=== PATIENT | male | born 1935 | race African-American/Black ===

== ENCOUNTER → 2017-05-07 | Outpatient (CLI) | payer MEDICARE, BC ==
[~2017-05-07] MED LIST: ACET-3161 PO; AMLO10TA80 PO; ATEN50TA PO; ATOR20TA65 PO; CHOL100044 PO; CYAN10009 PO; DAPA10TA PO; GLIM4TAB2 PO; LEVVL *; LOSA100T14 PO; METF10002 PO
== END | disposition home or self-care (01) ==
LOC: RAD 09:53
PROVIDERS: ATTEND Specialist
DX: J98.11 Atelectasis (principal)
CPT/HCPCS: 71020

== ENCOUNTER 2018-05-16 13:42 | Emergency (ER) | payer MEDICARE, BC ==
[~2018-05-16] VITALS: Ht 172.7 cm; Wt 138.0 kg
[~2018-05-16 13:42] MED LIST changes: +METF-416 PO; -METF10002 PO
[2018-05-16 14:43] VITALS: BP 121/67
== END 2018-05-16 14:44 | disposition home or self-care (01) ==
LOC: ER 13:42
DX: L03.211 Cellulitis of face (principal); E11.9 Type 2 diabetes mellitus without complications; I10 Essential (primary) hypertension; Z79.4 Long term (current) use of insulin
CPT/HCPCS: 99283

== ENCOUNTER 2018-10-12 08:31 | Inpatient (IN) | payer MEDICARE, BC ==
[~2018-10-12] VITALS: Ht 172.7 cm; Wt 125.6 kg
[2018-10-12] VITALS (19 sets, daily range): BP systolic 107–135; BP diastolic 49–89
[2018-10-12 09:27] LABS: BASOPHILS % 0.5 % (0.0-2.0); EOSINOPHILS % 1.2 % (0.0-5.0); HEMATOCRIT. 40.3 % (42.0-52.0); HEMOGLOBIN. 12.9 g/dL (14.0-18.0); LYMPHOCYTES % 43.4 % (20.0-50.0); MEAN CORPUSCULAR HEMOGLOBIN 29.5 pg (28.0-32.0); MEAN CORPUSCULAR VOLUME 92.2 fL (80.0-94.0); MEAN PLATELET VOLUME 7.5 fl (7.4-10.4); MONOCYTES % 10.7 % (2.0-8.0); NEUTROPHILS % 44.2 % (40.0-76.0); PLATELET 183 x1000/uL (130-400); RED BLOOD CELL COUNT 4.37 mill/uL (4.7-6.1); RED CELL DISTRIBUTION WIDTH 15.6 % (11.6-14.6)
[2018-10-12 09:31] LABS: CHLORIDE 103 mEq/L (98-107)
[2018-10-12 10:49] LABS: BG BASE EXCESS -1.9 mmol/L (-2.0-2.0); BG CARBOXYHEMOGLOBIN 0.3 % (0.5-1.5); BG DEOXYHEMOGLOBIN 9.9 % (0.0-5.0); BG FRACTION INSPIRED OXYGEN 100; BG HCO3 ACT 22.1 mmol/L (22.0-26.0); BG METHEMOGLOBIN 0.2 % (0.0-1.5); BG OXYGEN SATURATION 90.1 % (92.0-98.5); BG OXYHEMOGLOBIN 89.6 % (94.0-97.0); BG PCO2 35.2 mmHg (35.0-45.0); BG PH 7.415 (7.350-7.450); BG PO2 58.4 mmHg (75.0-100.0); BG SAMPLE SITE RIGHT RADIAL; BG TOTAL HEMOGLOBIN 13.4 g/dL (12.0-18.0); BG VENT MODE MASK - CPAP
[2018-10-12] MEDS ORDERED: ENOXAPARIN 120MG/0.8ML SYR SUBCUT ONE (14:00)
[2018-10-12] MEDS ORDERED: HEPARIN 25,000 UNITS PREMIX 500 ML IV SCH (14:15)
[2018-10-12] MEDS ORDERED: HEPARIN 5000 UNITS/ML VIAL IV SCH (14:15)
[2018-10-12] MEDS ORDERED: HEPARIN 5000 UNITS/ML VIAL IV ONE (14:15)
[2018-10-12] MEDS ORDERED: HEPARIN BOLUS PRN aPTT <36 IV (14:30)
[2018-10-12] MEDS ORDERED: HEPARIN BOLUS PRN aPTT 37-44 IV (14:30)
[2018-10-12 14:39] LABS: BASOPHILS % 1.1 % (0.0-2.0); EOSINOPHILS % 0.4 % (0.0-5.0); HEMATOCRIT. 39.5 % (42.0-52.0); HEMOGLOBIN. 12.8 g/dL (14.0-18.0); LYMPHOCYTES % 18.9 % (20.0-50.0); MEAN CORPUSCULAR HEMOGLOBIN 29.4 pg (28.0-32.0); MEAN PLATELET VOLUME 7.2 fl (7.4-10.4); MONOCYTES % 11.8 % (2.0-8.0); NEUTROPHILS % 67.8 % (40.0-76.0); PLATELET 169 x1000/uL (130-400); RED BLOOD CELL COUNT 4.34 mill/uL (4.7-6.1); RED CELL DISTRIBUTION WIDTH 15.6 % (11.6-14.6)
[2018-10-12 14:40] LABS: CHLORIDE 107 mEq/L (98-107)
[2018-10-12 14:49] LABS: CREATINE KINASE 120 IU/L (39-308)
[2018-10-12 14:50] LABS: INR 1.1; PARTIAL THROMBOPLASTIN TIME 24.7 sec (23.4-31.0); PROTHROMBIN TIME 11.1 sec (9.1-11.1)
[2018-10-12 14:52] LABS: CREATINE KINASE MB FRACTION 1.7 ng/mL (0.5-3.6)
[2018-10-12] MEDS: HEPARIN 25,000 UNITS PREMIX 500 ML IV SCH (15:39)
[2018-10-12] MEDS ORDERED: GUAIFENESIN 200MG/10ML SUGAR FREE UDC PO PRN (16:00)
[2018-10-12] MEDS ORDERED: ACETAMINOPHEN 325MG TABLET PO PRN (16:00)
[2018-10-12] MEDS ORDERED: ONDANSETRON HCL 4MG/2ML INJ IV PRN (16:00)
[2018-10-12] MEDS ORDERED: DOCUSATE SODIUM 100MG CAPSULE PO PRN (16:00)
[2018-10-12] MEDS ORDERED: CLONIDINE 0.1MG TABLET PO PRN (16:00)
[2018-10-12] MEDS ORDERED: MAGNESIUM/ALUMINUM HYDROXIDE/SIMETHICONE 30ML UDC PO PRN (16:00)
[2018-10-12] MEDS ORDERED: IPRATROPIUM/ALBUTEROL 0.5-3(2.5)MG/3ML NEB INH PRN (16:00)
[2018-10-12] MEDS ORDERED: MORPHINE SULFATE 4 MG/ML CPJ (NOT FOR IM USE) IV PRN (17:15)
[2018-10-12] MEDS ORDERED: IPRATROPIUM/ALBUTEROL 0.5-3(2.5)MG/3ML NEB HHN PRN (18:15)
[2018-10-12] MEDS: IPRATROPIUM/ALBUTEROL 0.5-3(2.5)MG/3ML NEB HHN SCH (20:59)
[2018-10-12] MEDS ORDERED: NA PHOS,M-B/NA PHOS,DI-BA ENEMA 118ML PR PRN (21:00)
[2018-10-12] MEDS ORDERED: DEXTROSE 50% WATER 50ML SYRINGE IV PRN (22:15)
[2018-10-12] MEDS: INSULIN LISPRO 100 UNITS/ML SUBCUT SCH (22:20)
[2018-10-12] MEDS: BLOOD SUGAR DIAGNOSTIC STRIP TEST SCH (22:20)
[2018-10-13] VITALS (64 sets, daily range): BP systolic 96–153; BP diastolic 55–79
[2018-10-13] MEDS: IPRATROPIUM/ALBUTEROL 0.5-3(2.5)MG/3ML NEB HHN SCH ×3 (02:11→20:34)
[2018-10-13 06:21] LABS: CHLORIDE 106 mEq/L (98-107)
[2018-10-13 06:23] LABS: BASOPHILS % 1.4 % (0.0-2.0); EOSINOPHILS % 1.2 % (0.0-5.0); HEMATOCRIT. 35.5 % (42.0-52.0); HEMOGLOBIN. 11.7 g/dL (14.0-18.0); LYMPHOCYTES % 26.2 % (20.0-50.0); MEAN CORPUSCULAR HEMOGLOBIN 29.7 pg (28.0-32.0); MEAN CORPUSCULAR VOLUME 90.2 fL (80.0-94.0); MEAN PLATELET VOLUME 7.7 fl (7.4-10.4); MONOCYTES % 13.3 % (2.0-8.0); NEUTROPHILS % 57.9 % (40.0-76.0); PLATELET 151 x1000/uL (130-400); RED BLOOD CELL COUNT 3.93 mill/uL (4.7-6.1); RED CELL DISTRIBUTION WIDTH 15.1 % (11.6-14.6)
[2018-10-13 06:31] LABS: CREATINE KINASE 99 IU/L (39-308); CREATINE KINASE MB FRACTION 1.5 ng/mL (0.5-3.6)
[2018-10-13 06:32] LABS: LDL CHOLESTEROL 71 mg/dL (5-100)
[2018-10-13 06:34] LABS: HDL CHOLESTEROL 52 mg/dL (40-59)
[2018-10-13] MEDS: INSULIN LISPRO 100 UNITS/ML SUBCUT SCH ×4 (06:58→21:57)
[2018-10-13] MEDS: BLOOD SUGAR DIAGNOSTIC STRIP TEST SCH ×4 (06:59→21:00)
[2018-10-13 08:20] LABS: BG CARBOXYHEMOGLOBIN 0.6 % (0.5-1.5); BG HCO3 ACT 23.4 mmol/L (22.0-26.0); BG METHEMOGLOBIN 0.4 % (0.0-1.5); BG OXYGEN SATURATION 94.9 % (92.0-98.5); BG PH 7.407 (7.350-7.450); BG PO2 75.8 mmHg (75.0-100.0); BG SAMPLE SITE RIGHT RADIAL; BG TOTAL HEMOGLOBIN 12.6 g/dL (12.0-18.0); BG VENT MODE MASK - NRB
[2018-10-13] MEDS: HEPARIN 25,000 UNITS PREMIX 500 ML IV SCH (08:57)
[2018-10-13] MEDS ORDERED: LIDOCAINE HCL/PF 1% 2ML VIAL ONE (14:17)
[2018-10-14] VITALS (25 sets, daily range): BP systolic 105–132; BP diastolic 50–83
[2018-10-14] MEDS: IPRATROPIUM/ALBUTEROL 0.5-3(2.5)MG/3ML NEB HHN SCH ×4 (01:19→20:40)
[2018-10-14] MEDS: HEPARIN 25,000 UNITS PREMIX 500 ML IV SCH (02:24)
[2018-10-14 07:00] LABS: BASOPHILS % 0.5 % (0.0-2.0); HEMATOCRIT. 36.7 % (42.0-52.0); HEMOGLOBIN. 11.9 g/dL (14.0-18.0); LYMPHOCYTES % 20.2 % (20.0-50.0); MEAN CORPUSCULAR HEMOGLOBIN 29.6 pg (28.0-32.0); MEAN CORPUSCULAR VOLUME 91.1 fL (80.0-94.0); MEAN PLATELET VOLUME 8.2 fl (7.4-10.4); MONOCYTES % 12.6 % (2.0-8.0); NEUTROPHILS % 65.7 % (40.0-76.0); PLATELET 162 x1000/uL (130-400); RED BLOOD CELL COUNT 4.03 mill/uL (4.7-6.1); RED CELL DISTRIBUTION WIDTH 15.1 % (11.6-14.6)
[2018-10-14] MEDS: BLOOD SUGAR DIAGNOSTIC STRIP TEST SCH ×4 (07:00→20:57)
[2018-10-14] MEDS: INSULIN LISPRO 100 UNITS/ML SUBCUT SCH ×4 (07:30→21:22)
[2018-10-14 08:15] LABS: BG BASE EXCESS 0.6 mmol/L (-2.0-2.0); BG CARBOXYHEMOGLOBIN 0.5 % (0.5-1.5); BG DEOXYHEMOGLOBIN 6.8 % (0.0-5.0); BG FRACTION INSPIRED OXYGEN 80; BG METHEMOGLOBIN 0.3 % (0.0-1.5); BG OXYGEN SATURATION 93.1 % (92.0-98.5); BG OXYHEMOGLOBIN 92.4 % (94.0-97.0); BG PCO2 39.3 mmHg (35.0-45.0); BG PH 7.421 (7.350-7.450); BG PO2 70.7 mmHg (75.0-100.0); BG SAMPLE SITE RIGHT RADIAL; BG TOTAL HEMOGLOBIN 14.1 g/dL (12.0-18.0); BG VENT MODE VAPOTHERM
[2018-10-14] MEDS ORDERED: LIDOCAINE HCL 1% 20ML VIAL (Pyxis) INJ ONE (10:24)
[2018-10-14] MEDS: RIVAROXABAN 15 MG TABLET PO SCH (20:57)
[2018-10-15] VITALS (12 sets, daily range): BP systolic 114–155; BP diastolic 51–100
[2018-10-15] MEDS: IPRATROPIUM/ALBUTEROL 0.5-3(2.5)MG/3ML NEB HHN SCH ×4 (01:41→20:30)
[2018-10-15 06:40] LABS: BASOPHILS % 0.6 % (0.0-2.0); HEMATOCRIT. 35.6 % (42.0-52.0); HEMOGLOBIN. 11.5 g/dL (14.0-18.0); LYMPHOCYTES % 19.2 % (20.0-50.0); MEAN CORPUSCULAR HEMOGLOBIN 29.6 pg (28.0-32.0); MEAN CORPUSCULAR VOLUME 91.6 fL (80.0-94.0); MEAN PLATELET VOLUME 8.2 fl (7.4-10.4); MONOCYTES % 13.6 % (2.0-8.0); NEUTROPHILS % 65.6 % (40.0-76.0); PLATELET 164 x1000/uL (130-400); RED BLOOD CELL COUNT 3.88 mill/uL (4.7-6.1); RED CELL DISTRIBUTION WIDTH 15.4 % (11.6-14.6)
[2018-10-15 08:09] LABS: BG BASE EXCESS 1.5 mmol/L (-2.0-2.0); BG CARBOXYHEMOGLOBIN 0.3 % (0.5-1.5); BG DEOXYHEMOGLOBIN 6.4 % (0.0-5.0); BG METHEMOGLOBIN 0.1 % (0.0-1.5); BG OXYGEN SATURATION 93.6 % (92.0-98.5); BG OXYHEMOGLOBIN 93.2 % (94.0-97.0); BG PCO2 40.8 mmHg (35.0-45.0); BG PH 7.423 (7.350-7.450); BG PO2 69.6 mmHg (75.0-100.0); BG SAMPLE SITE RIGHT RADIAL; BG TOTAL HEMOGLOBIN 11.6 g/dL (12.0-18.0); BG VENT MODE VAPOTHERM
[2018-10-15 08:13] LABS: CHLORIDE 105 mEq/L (98-107)
[2018-10-15] MEDS: RIVAROXABAN 15 MG TABLET PO SCH ×2 (09:53→18:26)
[2018-10-15] MEDS: BLOOD SUGAR DIAGNOSTIC STRIP TEST SCH ×2 (12:30→17:30)
[2018-10-15] MEDS: INSULIN LISPRO 100 UNITS/ML SUBCUT SCH ×2 (13:19→18:22)
[2018-10-15] MEDS ORDERED: LIDOCAINE HCL/PF 1% 2ML VIAL ONE (14:08)
[2018-10-16] VITALS (12 sets, daily range): BP systolic 122–144; BP diastolic 62–84
[2018-10-16] MEDS: IPRATROPIUM/ALBUTEROL 0.5-3(2.5)MG/3ML NEB HHN SCH ×4 (00:48→19:59)
[2018-10-16] MEDS: BLOOD SUGAR DIAGNOSTIC STRIP TEST SCH ×4 (07:40→21:00)
[2018-10-16] MEDS: RIVAROXABAN 15 MG TABLET PO SCH ×2 (08:17→18:23)
[2018-10-16] MEDS: INSULIN LISPRO 100 UNITS/ML SUBCUT SCH ×4 (08:18→22:35)
[2018-10-17] VITALS (12 sets, daily range): BP systolic 130–166; BP diastolic 62–90
[2018-10-17] MEDS: IPRATROPIUM/ALBUTEROL 0.5-3(2.5)MG/3ML NEB HHN SCH ×4 (02:13→20:46)
[2018-10-17] MEDS: BLOOD SUGAR DIAGNOSTIC STRIP TEST SCH ×4 (07:30→20:35)
[2018-10-17] MEDS: RIVAROXABAN 15 MG TABLET PO SCH ×2 (08:44→17:55)
[2018-10-17] MEDS: INSULIN LISPRO 100 UNITS/ML SUBCUT SCH ×4 (08:46→20:43)
[2018-10-17 14:27] LABS: BG BASE EXCESS -0.7 mmol/L (-2.0-2.0); BG CARBOXYHEMOGLOBIN 0.1 % (0.5-1.5); BG DEOXYHEMOGLOBIN 5.5 % (0.0-5.0); BG FRACTION INSPIRED OXYGEN 50; BG METHEMOGLOBIN 0.2 % (0.0-1.5); BG OXYGEN SATURATION 94.5 % (92.0-98.5); BG OXYHEMOGLOBIN 94.2 % (94.0-97.0); BG PCO2 39.9 mmHg (35.0-45.0); BG PH 7.398 (7.350-7.450); BG PO2 74.5 mmHg (75.0-100.0); BG SAMPLE SITE RIGHT BRACHIAL; BG TOTAL HEMOGLOBIN 12.8 g/dL (12.0-18.0); BG VENT MODE VAPOTHERM
[2018-10-18] VITALS (12 sets, daily range): BP systolic 134–166; BP diastolic 66–92
[2018-10-18] MEDS: IPRATROPIUM/ALBUTEROL 0.5-3(2.5)MG/3ML NEB HHN SCH ×4 (02:13→21:26)
[2018-10-18 07:01] LABS: BASOPHILS % 0.4 % (0.0-2.0); EOSINOPHILS % 1.6 % (0.0-5.0); HEMATOCRIT. 35.8 % (42.0-52.0); HEMOGLOBIN. 11.6 g/dL (14.0-18.0); MEAN CORPUSCULAR HEMOGLOBIN 29.7 pg (28.0-32.0); MEAN CORPUSCULAR VOLUME 91.8 fL (80.0-94.0); MEAN PLATELET VOLUME 7.9 fl (7.4-10.4); MONOCYTES % 12.5 % (2.0-8.0); NEUTROPHILS % 60.5 % (40.0-76.0); PLATELET 231 x1000/uL (130-400); RED CELL DISTRIBUTION WIDTH 14.9 % (11.6-14.6)
[2018-10-18 07:19] LABS: CHLORIDE 104 mEq/L (98-107)
[2018-10-18] MEDS: BLOOD SUGAR DIAGNOSTIC STRIP TEST SCH ×4 (08:01→20:31)
[2018-10-18] MEDS: RIVAROXABAN 15 MG TABLET PO SCH ×2 (09:03→18:13)
[2018-10-18] MEDS: INSULIN LISPRO 100 UNITS/ML SUBCUT SCH ×4 (09:04→20:33)
[2018-10-18 09:53] LABS: BG BASE EXCESS -0.3 mmol/L (-2.0-2.0); BG CARBOXYHEMOGLOBIN 0.1 % (0.5-1.5); BG DEOXYHEMOGLOBIN 4.7 % (0.0-5.0); BG HCO3 ACT 24.5 mmol/L (22.0-26.0); BG METHEMOGLOBIN 0.3 % (0.0-1.5); BG OXYGEN SATURATION 95.3 % (92.0-98.5); BG OXYHEMOGLOBIN 94.9 % (94.0-97.0); BG PCO2 40.8 mmHg (35.0-45.0); BG PH 7.396 (7.350-7.450); BG PO2 80.1 mmHg (75.0-100.0); BG SAMPLE SITE RIGHT RADIAL; BG TOTAL HEMOGLOBIN 12.4 g/dL (12.0-18.0); BG VENT MODE MASK - VENTI
[2018-10-18] MEDS ORDERED: LIDOCAINE HCL/PF 1% 2ML VIAL ONE (15:32)
[2018-10-19] VITALS (9 sets, daily range): BP systolic 127–154; BP diastolic 66–77
[2018-10-19] MEDS: BLOOD SUGAR DIAGNOSTIC STRIP TEST SCH ×2 (06:41→11:42)
[2018-10-19 07:18] LABS: BASOPHILS % 0.8 % (0.0-2.0); EOSINOPHILS % 1.4 % (0.0-5.0); HEMATOCRIT. 35.5 % (42.0-52.0); HEMOGLOBIN. 11.8 g/dL (14.0-18.0); LYMPHOCYTES % 26.1 % (20.0-50.0); MEAN CORPUSCULAR HEMOGLOBIN 30.3 pg (28.0-32.0); MEAN CORPUSCULAR VOLUME 91.3 fL (80.0-94.0); MEAN PLATELET VOLUME 7.9 fl (7.4-10.4); MONOCYTES % 12.7 % (2.0-8.0); PLATELET 248 x1000/uL (130-400); RED BLOOD CELL COUNT 3.89 mill/uL (4.7-6.1); RED CELL DISTRIBUTION WIDTH 14.8 % (11.6-14.6)
[2018-10-19 07:28] LABS: CHLORIDE 105 mEq/L (98-107)
[2018-10-19] MEDS: IPRATROPIUM/ALBUTEROL 0.5-3(2.5)MG/3ML NEB HHN SCH ×2 (09:12→16:03)
[2018-10-19] MEDS: RIVAROXABAN 15 MG TABLET PO SCH ×2 (10:04→17:29)
[2018-10-19] MEDS: INSULIN LISPRO 100 UNITS/ML SUBCUT SCH (12:13)
[2018-11-05] MEDS ORDERED: RIVAROXABAN 20 MG TABLET PO SCH (17:00)
== END 2018-10-19 17:35 | DRG 175 ==
LOC: ER 08:31 → MICUSO 14:15 → SUPCPDRO 15:42 → ENRESERV 17:47 → 5EST 10-14 10:45
PROVIDERS: ADMIT Specialist; ATTEND Specialist
PROC: 5A09357 Assistance with Respiratory Ventilation, Less than 24 Consecutive Hours, Continuous Positive Airway Pressure (ICD-10-PCS; principal; 2018-10-17)
PROC: 5A09357 Assistance with Respiratory Ventilation, Less than 24 Consecutive Hours, Continuous Positive Airway Pressure (ICD-10-PCS; 2018-10-19)
DX: I26.99 Other pulmonary embolism without acute cor pulmonale (principal); J96.01 Acute respiratory failure with hypoxia; D68.59 Other primary thrombophilia; N17.9 Acute kidney failure, unspecified; I13.0 Hypertensive heart and chronic kidney disease with heart failure and stage 1 through stage 4 chronic kidney disease, or unspecified chronic kidney disease; G82.20 Paraplegia, unspecified; J93.9 Pneumothorax, unspecified; Z68.41 Body mass index [BMI] 40.0-44.9, adult; N18.9 Chronic kidney disease, unspecified; I48.0 Paroxysmal atrial fibrillation; J44.9 Chronic obstructive pulmonary disease, unspecified; I27.20 Pulmonary hypertension, unspecified; Z79.84 Long term (current) use of oral hypoglycemic drugs; R74.0 Nonspecific elevation of levels of transaminase and lactic acid dehydrogenase [LDH]; R26.9 Unspecified abnormalities of gait and mobility; G47.33 Obstructive sleep apnea (adult) (pediatric); I25.10 Atherosclerotic heart disease of native coronary artery without angina pectoris; I50.9 Heart failure, unspecified; D64.9 Anemia, unspecified; E11.22 Type 2 diabetes mellitus with diabetic chronic kidney disease; E66.01 Morbid (severe) obesity due to excess calories; E78.00 Pure hypercholesterolemia, unspecified; E78.5 Hyperlipidemia, unspecified; M48.061 Spinal stenosis, lumbar region without neurogenic claudication; M51.36 Other intervertebral disc degeneration, lumbar region; Z79.01 Long term (current) use of anticoagulants; Z79.82 Long term (current) use of aspirin; Z79.890 Hormone replacement therapy; Z86.718 Personal history of other venous thrombosis and embolism; Z95.0 Presence of cardiac pacemaker
CPT/HCPCS: 36415; 36600; 71045; 71250; 78582; 80048; 80061; 82375; 82550; 82553; 82805; 82962; 83735; 83880; 84443; 84484; 85379; 93005; 93306; 93970; 94640; 97116; 97162; 99291; A6261; A9558; J1644; J1815; J3490; J7040; J7620

== ENCOUNTER 2018-10-19 17:45 | Inpatient (IN) | payer MEDICARE, BC ==
[~2018-10-19] VITALS: Ht 172.7 cm; Wt 122.5 kg
[2018-10-19] MEDS ORDERED: ACETAMINOPHEN 325MG TABLET PO PRN (19:30)
[2018-10-19] MEDS ORDERED: MAGNESIUM/ALUMINUM HYDROXIDE/SIMETHICONE 30ML UDC PO PRN (19:30)
[2018-10-19] MEDS ORDERED: GUAIFENESIN 200MG/10ML SUGAR FREE UDC PO PRN (19:30)
[2018-10-19] MEDS ORDERED: CLONIDINE 0.1MG TABLET PO PRN (19:30)
[2018-10-19] MEDS ORDERED: IPRATROPIUM/ALBUTEROL 0.5-3(2.5)MG/3ML NEB HHN PRN (19:30)
[2018-10-19] MEDS ORDERED: DOCUSATE SODIUM 100MG CAPSULE PO PRN (19:30)
[2018-10-19] MEDS ORDERED: DEXTROSE 50% WATER 50ML SYRINGE IV PRN (19:45)
[2018-10-19 19:50] VITALS: BP 125/67
[2018-10-19 20:00] VITALS: BP 125/67
[2018-10-19] MEDS: BLOOD SUGAR DIAGNOSTIC STRIP TEST SCH (21:50)
[2018-10-19] MEDS: INSULIN LISPRO 100 UNITS/ML SUBCUT SCH (21:58)
[2018-10-20] MEDS: IPRATROPIUM/ALBUTEROL 0.5-3(2.5)MG/3ML NEB HHN SCH ×4 (02:49→21:15)
[2018-10-20 05:56] LABS: CHLORIDE 105 mEq/L (98-107)
[2018-10-20 06:09] LABS: BASOPHILS % 0.5 % (0.0-2.0); EOSINOPHILS % 1.5 % (0.0-5.0); HEMATOCRIT. 34.3 % (42.0-52.0); HEMOGLOBIN. 11.2 g/dL (14.0-18.0); LYMPHOCYTES % 26.5 % (20.0-50.0); MEAN CORPUSCULAR HEMOGLOBIN 29.9 pg (28.0-32.0); MEAN CORPUSCULAR VOLUME 91.7 fL (80.0-94.0); MEAN PLATELET VOLUME 7.7 fl (7.4-10.4); MONOCYTES % 12.2 % (2.0-8.0); NEUTROPHILS % 59.3 % (40.0-76.0); PLATELET 269 x1000/uL (130-400); RED BLOOD CELL COUNT 3.75 mill/uL (4.7-6.1); RED CELL DISTRIBUTION WIDTH 14.7 % (11.6-14.6)
[2018-10-20] MEDS: BLOOD SUGAR DIAGNOSTIC STRIP TEST SCH ×4 (06:31→21:50)
[2018-10-20 08:07] VITALS: BP 141/79
[2018-10-20] MEDS: RIVAROXABAN 15 MG TABLET PO SCH ×2 (08:39→16:20)
[2018-10-20] MEDS: INSULIN LISPRO 100 UNITS/ML SUBCUT SCH ×4 (08:42→22:03)
[2018-10-20] MEDS ORDERED: BISACODYL 5MG TABLET PO PRN (11:30)
[2018-10-20] MEDS: DOCUSATE SODIUM 100MG CAPSULE PO SCH (12:29)
[2018-10-20 20:00] VITALS: BP 150/78
[2018-10-21] MEDS: IPRATROPIUM/ALBUTEROL 0.5-3(2.5)MG/3ML NEB HHN SCH ×2 (02:03→19:54)
[2018-10-21] MEDS: BLOOD SUGAR DIAGNOSTIC STRIP TEST SCH ×4 (06:19→21:57)
[2018-10-21] MEDS: INSULIN LISPRO 100 UNITS/ML SUBCUT SCH ×4 (06:29→22:02)
[2018-10-21 08:08] VITALS: BP 158/71
[2018-10-21] MEDS: RIVAROXABAN 15 MG TABLET PO SCH ×2 (09:12→17:01)
[2018-10-21] MEDS: DOCUSATE SODIUM 100MG CAPSULE PO SCH (09:12)
[2018-10-21] MEDS: ONDANSETRON HCL 4MG TABLET PO PRN (12:28)
[2018-10-21 20:00] VITALS: BP 137/74
[2018-10-22] MEDS: IPRATROPIUM/ALBUTEROL 0.5-3(2.5)MG/3ML NEB HHN SCH ×4 (00:37→21:02)
[2018-10-22 05:50] LABS: BASOPHILS % 0.6 % (0.0-2.0); EOSINOPHILS % 2.1 % (0.0-5.0); HEMATOCRIT. 33.7 % (42.0-52.0); HEMOGLOBIN. 11.1 g/dL (14.0-18.0); LYMPHOCYTES % 29.9 % (20.0-50.0); MEAN CORPUSCULAR HEMOGLOBIN 30.1 pg (28.0-32.0); MEAN CORPUSCULAR VOLUME 91.2 fL (80.0-94.0); MEAN PLATELET VOLUME 7.6 fl (7.4-10.4); MONOCYTES % 12.2 % (2.0-8.0); NEUTROPHILS % 55.2 % (40.0-76.0); PLATELET 291 x1000/uL (130-400); RED BLOOD CELL COUNT 3.69 mill/uL (4.7-6.1); RED CELL DISTRIBUTION WIDTH 15.1 % (11.6-14.6)
[2018-10-22] MEDS: BLOOD SUGAR DIAGNOSTIC STRIP TEST SCH ×4 (06:43→21:00)
[2018-10-22] MEDS: INSULIN LISPRO 100 UNITS/ML SUBCUT SCH ×2 (06:51→18:25)
[2018-10-22 06:56] LABS: CHLORIDE 106 mEq/L (98-107)
[2018-10-22 07:05] LABS: LDL CHOLESTEROL 111 mg/dL (5-100); PHOSPHORUS 2.8 mg/dL (2.5-4.9)
[2018-10-22 07:07] LABS: HDL CHOLESTEROL 45 mg/dL (40-59)
[2018-10-22 07:09] LABS: TOTAL IRON BINDING CAPACITY 248 ug/dL (250-450)
[2018-10-22 08:00] VITALS: BP 114/64
[2018-10-22 10:17] LABS: FERRITIN 374 ng/mL (22-322); PROSTRATE SPECIFIC AG TOTAL 0.24 ng/mL (0.0-4.0)
[2018-10-22] MEDS: RIVAROXABAN 15 MG TABLET PO SCH ×2 (10:46→18:23)
[2018-10-22] MEDS: DOCUSATE SODIUM 100MG CAPSULE PO SCH (10:47)
[2018-10-22 11:33] LABS: VITAMIN B12 SERUM > 2000.0 pg/mL (211-911)
[2018-10-22] MEDS: LEVOTHYROXINE SODIUM 25MCG TABLET PO SCH (13:57)
[2018-10-22] MEDS ORDERED: INSULIN LISPRO 100 UNITS/ML SUBCUT SCH (17:00)
[2018-10-22] MEDS: INSULIN LISPRO (LOW DOSE) 100 UNITS/ML SUBCUT SCH (18:24)
[2018-10-22 20:00] VITALS: BP 119/58
[2018-10-22] MEDS: INSULIN GLARGINE UD 100 UNITS/ML SYR SUBCUT SCH (23:13)
[2018-10-23] MEDS: IPRATROPIUM/ALBUTEROL 0.5-3(2.5)MG/3ML NEB HHN SCH ×4 (02:02→21:52)
[2018-10-23] MEDS: LEVOTHYROXINE SODIUM 25MCG TABLET PO SCH (06:37)
[2018-10-23] MEDS: BLOOD SUGAR DIAGNOSTIC STRIP TEST SCH ×4 (06:48→21:31)
[2018-10-23] MEDS: INSULIN LISPRO 100 UNITS/ML SUBCUT SCH ×3 (06:48→17:28)
[2018-10-23] MEDS: INSULIN LISPRO (LOW DOSE) 100 UNITS/ML SUBCUT SCH ×3 (06:48→17:28)
[2018-10-23 08:00] VITALS: BP 117/61
[2018-10-23] MEDS: DOCUSATE SODIUM 100MG CAPSULE PO SCH (08:42)
[2018-10-23] MEDS: RIVAROXABAN 15 MG TABLET PO SCH ×2 (08:42→17:17)
[2018-10-23 09:11] LABS: T4 FREE 1.21 ng/dL (0.76-1.46)
[2018-10-23 11:40] LABS: HEPATITIS B SURFACE ANTIGEN NEGATIVE
[2018-10-23 12:10] LABS: HEPATITIS A AB IGM NEGATIVE (NEGATIVE)
[2018-10-23] MEDS ORDERED: LACTULOSE 20G/30ML UDC PO NR (14:30)
[2018-10-23 21:00] VITALS: BP 133/75
[2018-10-23] MEDS: INSULIN GLARGINE UD 100 UNITS/ML SYR SUBCUT SCH (21:51)
[2018-10-24] MEDS: IPRATROPIUM/ALBUTEROL 0.5-3(2.5)MG/3ML NEB HHN SCH ×4 (01:48→21:20)
[2018-10-24] MEDS: BLOOD SUGAR DIAGNOSTIC STRIP TEST SCH ×4 (06:04→21:39)
[2018-10-24] MEDS: LEVOTHYROXINE SODIUM 25MCG TABLET PO SCH (06:04)
[2018-10-24 06:45] LABS: BASOPHILS % 0.6 % (0.0-2.0); EOSINOPHILS % 1.9 % (0.0-5.0); HEMATOCRIT. 33.9 % (42.0-52.0); HEMOGLOBIN. 11.3 g/dL (14.0-18.0); LYMPHOCYTES % 32.9 % (20.0-50.0); MEAN CORPUSCULAR HEMOGLOBIN 30.2 pg (28.0-32.0); MEAN CORPUSCULAR VOLUME 90.9 fL (80.0-94.0); MEAN PLATELET VOLUME 7.5 fl (7.4-10.4); MONOCYTES % 12.7 % (2.0-8.0); NEUTROPHILS % 51.9 % (40.0-76.0); PLATELET 316 x1000/uL (130-400); RED BLOOD CELL COUNT 3.73 mill/uL (4.7-6.1)
[2018-10-24 06:57] LABS: CHLORIDE 105 mEq/L (98-107)
[2018-10-24] MEDS: INSULIN LISPRO 100 UNITS/ML SUBCUT SCH ×3 (07:00→16:50)
[2018-10-24 08:00] VITALS: BP 128/62
[2018-10-24] MEDS: DOCUSATE SODIUM 100MG CAPSULE PO SCH (08:56)
[2018-10-24] MEDS: RIVAROXABAN 15 MG TABLET PO SCH ×2 (08:56→16:07)
[2018-10-24] MEDS: INSULIN LISPRO (LOW DOSE) 100 UNITS/ML SUBCUT SCH ×3 (09:08→16:51)
[2018-10-24] MEDS: ONDANSETRON HCL 4MG TABLET PO PRN (14:29)
[2018-10-24 20:00] VITALS: BP 132/74
[2018-10-24] MEDS: INSULIN GLARGINE UD 100 UNITS/ML SYR SUBCUT SCH (22:03)
[2018-10-25] MEDS: IPRATROPIUM/ALBUTEROL 0.5-3(2.5)MG/3ML NEB HHN SCH ×4 (00:57→20:50)
[2018-10-25] MEDS: LEVOTHYROXINE SODIUM 25MCG TABLET PO SCH (06:13)
[2018-10-25] MEDS: BLOOD SUGAR DIAGNOSTIC STRIP TEST SCH ×4 (06:14→21:00)
[2018-10-25] MEDS: INSULIN LISPRO 100 UNITS/ML SUBCUT SCH ×3 (07:52→16:40)
[2018-10-25] MEDS: INSULIN LISPRO (LOW DOSE) 100 UNITS/ML SUBCUT SCH ×3 (07:53→16:40)
[2018-10-25 07:55] VITALS: BP 111/55
[2018-10-25] MEDS: RIVAROXABAN 15 MG TABLET PO SCH ×2 (08:52→16:38)
[2018-10-25] MEDS: BISACODYL 5MG TABLET PO PRN ×2 (08:52→16:38)
[2018-10-25] MEDS: DOCUSATE SODIUM 100MG CAPSULE PO SCH (08:52)
[2018-10-25] MEDS ORDERED: LACTULOSE 20G/30ML UDC PO PRN (12:45)
[2018-10-25] MEDS ORDERED: NA PHOS,M-B/NA PHOS,DI-BA ENEMA 118ML PR SCH (12:45)
[2018-10-25 20:00] VITALS: BP 128/65
[2018-10-25] MEDS: INSULIN GLARGINE UD 100 UNITS/ML SYR SUBCUT SCH (22:42)
[2018-10-26] MEDS: IPRATROPIUM/ALBUTEROL 0.5-3(2.5)MG/3ML NEB HHN SCH ×4 (02:20→20:51)
[2018-10-26] MEDS: LEVOTHYROXINE SODIUM 25MCG TABLET PO SCH (06:08)
[2018-10-26] MEDS: BLOOD SUGAR DIAGNOSTIC STRIP TEST SCH ×4 (06:08→21:00)
[2018-10-26 06:34] LABS: CHLORIDE 105 mEq/L (98-107)
[2018-10-26 06:51] LABS: HEMATOCRIT. 34.8 % (42.0-52.0); HEMOGLOBIN. 11.2 g/dL (14.0-18.0); LYMPHOCYTES % 34.9 % (20.0-50.0); MEAN CORPUSCULAR HEMOGLOBIN 29.6 pg (28.0-32.0); MEAN CORPUSCULAR VOLUME 91.5 fL (80.0-94.0); MEAN PLATELET VOLUME 7.6 fl (7.4-10.4); MONOCYTES % 11.2 % (2.0-8.0); NEUTROPHILS % 50.9 % (40.0-76.0); PLATELET 310 x1000/uL (130-400); RED CELL DISTRIBUTION WIDTH 15.3 % (11.6-14.6)
[2018-10-26 08:10] VITALS: BP 140/78
[2018-10-26] MEDS: DOCUSATE SODIUM 100MG CAPSULE PO SCH (08:48)
[2018-10-26] MEDS: RIVAROXABAN 15 MG TABLET PO SCH ×2 (08:48→17:50)
[2018-10-26] MEDS: INSULIN LISPRO 100 UNITS/ML SUBCUT SCH ×3 (09:01→17:57)
[2018-10-26] MEDS: INSULIN LISPRO (LOW DOSE) 100 UNITS/ML SUBCUT SCH ×3 (09:01→17:57)
[2018-10-26 20:00] VITALS: BP 138/73
[2018-10-26] MEDS: INSULIN GLARGINE UD 100 UNITS/ML SYR SUBCUT SCH (22:15)
[2018-10-27] MEDS: IPRATROPIUM/ALBUTEROL 0.5-3(2.5)MG/3ML NEB HHN SCH ×2 (02:41→09:18)
[2018-10-27] MEDS: BLOOD SUGAR DIAGNOSTIC STRIP TEST SCH ×2 (06:59→11:15)
[2018-10-27] MEDS: LEVOTHYROXINE SODIUM 25MCG TABLET PO SCH (07:11)
[2018-10-27] MEDS: INSULIN LISPRO 100 UNITS/ML SUBCUT SCH ×2 (07:16→13:28)
[2018-10-27 08:05] VITALS: BP 141/73
[2018-10-27] MEDS: DOCUSATE SODIUM 100MG CAPSULE PO SCH (08:31)
[2018-10-27] MEDS: RIVAROXABAN 15 MG TABLET PO SCH (08:31)
[2018-10-27] MEDS: INSULIN LISPRO (LOW DOSE) 100 UNITS/ML SUBCUT SCH ×2 (08:37→13:28)
[2018-10-27 09:27] VITALS: BP 138/69
[2018-10-28 17:06] LABS: 25-HYDROXY VITAMIN D3 40 ng/mL (.)
[2018-11-05] MEDS ORDERED: RIVAROXABAN 20 MG TABLET PO SCH (17:00)
== END 2018-10-27 14:28 | disposition home health service (06) | DRG 175 ==
PROVIDERS: ADMIT Physical Medicine & Rehabilitation Spinal Cord Injury Medicine; ATTEND Specialist
PROC: 5A09357 Assistance with Respiratory Ventilation, Less than 24 Consecutive Hours, Continuous Positive Airway Pressure (ICD-10-PCS; principal; 2018-10-21)
PROC: 5A09357 Assistance with Respiratory Ventilation, Less than 24 Consecutive Hours, Continuous Positive Airway Pressure (ICD-10-PCS; 2018-10-26)
DX: I26.99 Other pulmonary embolism without acute cor pulmonale (principal); J96.00 Acute respiratory failure, unspecified whether with hypoxia or hypercapnia; G82.20 Paraplegia, unspecified; N17.9 Acute kidney failure, unspecified; J93.9 Pneumothorax, unspecified; J90 Pleural effusion, not elsewhere classified; D68.59 Other primary thrombophilia; Z68.41 Body mass index [BMI] 40.0-44.9, adult; M48.061 Spinal stenosis, lumbar region without neurogenic claudication; R53.81 Other malaise; G89.29 Other chronic pain; R20.0 Anesthesia of skin; R74.8 Abnormal levels of other serum enzymes; N18.9 Chronic kidney disease, unspecified; E11.22 Type 2 diabetes mellitus with diabetic chronic kidney disease; I12.9 Hypertensive chronic kidney disease with stage 1 through stage 4 chronic kidney disease, or unspecified chronic kidney disease; I48.0 Paroxysmal atrial fibrillation; I27.20 Pulmonary hypertension, unspecified; R16.0 Hepatomegaly, not elsewhere classified; R26.9 Unspecified abnormalities of gait and mobility; D64.9 Anemia, unspecified; E66.01 Morbid (severe) obesity due to excess calories; I25.10 Atherosclerotic heart disease of native coronary artery without angina pectoris; G47.33 Obstructive sleep apnea (adult) (pediatric); E03.9 Hypothyroidism, unspecified; E78.00 Pure hypercholesterolemia, unspecified; J44.9 Chronic obstructive pulmonary disease, unspecified; K59.00 Constipation, unspecified; E78.5 Hyperlipidemia, unspecified; F06.31 Mood disorder due to known physiological condition with depressive features; R53.1 Weakness; M51.86 Other intervertebral disc disorders, lumbar region; R74.0 Nonspecific elevation of levels of transaminase and lactic acid dehydrogenase [LDH]; Z86.718 Personal history of other venous thrombosis and embolism; Z95.0 Presence of cardiac pacemaker; Z79.899 Other long term (current) drug therapy; Z79.01 Long term (current) use of anticoagulants; Z82.49 Family history of ischemic heart disease and other diseases of the circulatory system; Z87.891 Personal history of nicotine dependence; Z79.84 Long term (current) use of oral hypoglycemic drugs; Z98.42 Cataract extraction status, left eye; Q63.2 Ectopic kidney
CPT/HCPCS: 36415; 76700; 80061; 82306; 82607; 82728; 82746; 82962; 83036; 83540; 83550; 83735; 84100; 84134; 84153; 84439; 84443; 84481; 86705; 86709; 86803; 87340; 92508; 92523; 93970; 94618; 94640; 94660; 97110; 97116; 97150; 97162; 97166; 97530; 97535; G0515; J1815; J7620; Q0162; G0103

== ENCOUNTER 2020-01-28 09:48 | Emergency (ER) | payer MEDICARE, BC ==
[~2020-01-28] VITALS: Ht 167.6 cm; Wt 135.0 kg
[~2020-01-28 09:48] MED LIST changes: +CYAN-50 PO; -CYAN10009 PO; -GLIM4TAB2 PO; +GLIM4TAB36 PO; -LEVVL *; -LOSA100T14 PO; +LOSA100T32 PO
[2020-01-28] MEDS ORDERED: ACETAMINOPHEN 325MG TABLET PO STA (11:12)
[2020-01-28 12:34] LABS: CLARITY URINE CLEAR (CLEAR); COLOR URINE DARK YELLOW (YELLOW); KETONES URINE TRACE (NEGATIVE); LEUKOCYTE ESTERASE URINE 1+ (NEGATIVE); NITRITE URINE NEGATIVE (NEGATIVE); OCCULT BLOOD URINE NEGATIVE (NEGATIVE); PH URINE 5.5 (4.5-8.0); PROTEIN URINE TRACE (NEGATIVE); SPECIFIC GRAVITY URINE 1.026 (1.005-1.030)
[2020-01-28 13:00] VITALS: BP 158/86
== END 2020-01-28 13:25 | disposition home or self-care (01) ==
LOC: ER 09:48
DX: S20.211A Contusion of right front wall of thorax, initial encounter (principal); W01.0XXA Fall on same level from slipping, tripping and stumbling without subsequent striking against object, initial encounter; Y93.89 Activity, other specified; Y92.89 Other specified places as the place of occurrence of the external cause; Y99.8 Other external cause status; N39.0 Urinary tract infection, site not specified; I11.0 Hypertensive heart disease with heart failure; I50.9 Heart failure, unspecified; E11.9 Type 2 diabetes mellitus without complications; Z79.899 Other long term (current) drug therapy
CPT/HCPCS: 71101; 81003; 93005; 99285

== ENCOUNTER 2020-02-15 15:00 | Inpatient (IN) | payer MEDICARE, BC ==
[~2020-02-15] VITALS: Ht 172.7 cm; Wt 127.5 kg
[2020-02-15] MEDS ORDERED: RIVAROXABAN 15 MG TABLET PO SCH (17:00)
[2020-02-15 17:23] LABS: BASOPHILS % 0.7 % (0.0-2.0); EOSINOPHILS % 0.3 % (0.0-5.0); LYMPHOCYTES % 14.4 % (20.0-50.0); MEAN CORPUSCULAR HEMOGLOBIN 30.4 pg (28.0-32.0); MEAN CORPUSCULAR VOLUME 91.3 fL (80.0-94.0); MEAN PLATELET VOLUME 8.5 fl (7.4-10.4); NEUTROPHILS % 72.6 % (40.0-76.0); PLATELET 240 x1000/uL (130-400); RED BLOOD CELL COUNT 3.61 mill/uL (4.7-6.1); RED CELL DISTRIBUTION WIDTH 16.2 % (11.6-14.6)
[2020-02-15] MEDS ORDERED: SODIUM BICARBONATE 8.4% 1 MEQ/ML 50ML SYR IV STA (17:38)
[2020-02-15] MEDS ORDERED: ENOXAPARIN 40MG/0.4ML SYR SUBCUT SCH (18:00)
[2020-02-15] MEDS ORDERED: DEXTROSE 50% WATER 50ML SYRINGE IV NR (18:00)
[2020-02-15] MEDS ORDERED: INSULIN REGULAR (HUMULIN R) UD 100 UNITS/ML SYR IV NR (18:00)
[2020-02-15] MEDS ORDERED: INSULIN REGULAR (HUMULIN R) 300UNITS/3ML IV NR (18:00)
[2020-02-15] MEDS ORDERED: SODIUM POLYSTYRENE SULFONATE 15 G/60 ML BOT PO NR (18:00)
[2020-02-15 18:17] LABS: CREATINE KINASE 123 IU/L (39-308)
[2020-02-15] MEDS: ATENOLOL 25MG TABLET PO SCH (18:21)
[2020-02-15] MEDS: SODIUM CHLORIDE 0.9% 1,000 ML IV SCH (18:49)
[2020-02-15 19:05] LABS: CLARITY URINE CLEAR (CLEAR); COLOR URINE YELLOW (YELLOW); KETONES URINE NEGATIVE (NEGATIVE); LEUKOCYTE ESTERASE URINE NEGATIVE (NEGATIVE); NITRITE URINE NEGATIVE (NEGATIVE); OCCULT BLOOD URINE NEGATIVE (NEGATIVE); PROTEIN URINE NEGATIVE (NEGATIVE); SPECIFIC GRAVITY URINE 1.017 (1.005-1.030); UROBILINOGEN URINE 0.2 E.U./dL (0.2-1.0)
[2020-02-15 19:16] LABS: *BENZODIAZEPINES SCREEN URINE NEGATIVE (NEGATIVE); *COCAINE SCREEN URINE NEGATIVE (NEGATIVE); METHADONE URINE SCREEN NEGATIVE (NEGATIVE); OPIATES URINE SCREEN NEGATIVE (NEGATIVE); PHENCYCLIDINE URINE SCREEN NEGATIVE (NEGATIVE)
[2020-02-15 19:17] LABS: *AMPHETAMINES SCREEN URINE NEGATIVE (NEGATIVE); *BARBITURATES SCREEN URINE NEGATIVE (NEGATIVE); CANNABINOID URINE SCREEN NEGATIVE (NEGATIVE)
[2020-02-15] MEDS ORDERED: ONDANSETRON HCL 4MG/2ML INJ IV PRN (20:15)
[2020-02-15] MEDS ORDERED: DIPHENHYDRAMINE 50MG/ML VIAL IV PRN (20:15)
[2020-02-15] MEDS ORDERED: CLONIDINE 0.1MG TABLET PO PRN (20:15)
[2020-02-15] MEDS ORDERED: ACETAMINOPHEN 325MG TABLET PO PRN ×2 (20:15)
[2020-02-15] MEDS ORDERED: DEXTROSE 50% WATER 50ML SYRINGE IV PRN (20:15)
[2020-02-15] MEDS: BLOOD SUGAR DIAGNOSTIC STRIP TEST SCH (21:54)
[2020-02-15] MEDS: INSULIN LISPRO 100 UNITS/ML SUBCUT SCH (21:54)
[2020-02-15] MEDS: SODIUM CHLORIDE 0.9% INJ 3ML FLUSH IVF SCH (22:00)
[2020-02-16] VITALS (8 sets, daily range): BP systolic 98–124; BP diastolic 40–74
[2020-02-16] MEDS: SODIUM CHLORIDE 0.9% INJ 3ML FLUSH IVF SCH ×3 (06:06→20:51)
[2020-02-16 06:49] LABS: BASOPHILS % 0.4 % (0.0-2.0); EOSINOPHILS % 0.8 % (0.0-5.0); HEMATOCRIT. 31.5 % (42.0-52.0); HEMOGLOBIN. 10.4 g/dL (14.0-18.0); LYMPHOCYTES % 20.1 % (20.0-50.0); MEAN CORPUSCULAR HEMOGLOBIN 30.1 pg (28.0-32.0); MEAN CORPUSCULAR VOLUME 90.9 fL (80.0-94.0); MEAN PLATELET VOLUME 8.1 fl (7.4-10.4); MONOCYTES % 14.6 % (2.0-8.0); NEUTROPHILS % 64.1 % (40.0-76.0); PLATELET 197 x1000/uL (130-400); RED BLOOD CELL COUNT 3.47 mill/uL (4.7-6.1); RED CELL DISTRIBUTION WIDTH 15.6 % (11.6-14.6)
[2020-02-16] MEDS: INSULIN LISPRO 100 UNITS/ML SUBCUT SCH ×4 (08:00→20:51)
[2020-02-16] MEDS: ATENOLOL 25MG TABLET PO SCH ×2 (08:13→20:50)
[2020-02-16] MEDS: BLOOD SUGAR DIAGNOSTIC STRIP TEST SCH ×4 (08:15→20:51)
[2020-02-16] MEDS: SODIUM CHLORIDE 0.9% 1,000 ML IV SCH ×2 (08:25→17:29)
[2020-02-16] MEDS ORDERED: SODIUM POLYSTYRENE SULFONATE 15 G/60 ML BOT PO ONE (11:45)
[2020-02-16] MEDS ORDERED: SODIUM POLYSTYRENE SULFONATE 15 G/60 ML BOT PO SCH (13:00)
[2020-02-16] MEDS ORDERED: DIATR MEGLU/DIATRIZOATE SOLN 30ML PO NR (13:30)
[2020-02-16 16:12] LABS: CREATINE KINASE 119 IU/L (39-308)
[2020-02-17] VITALS (9 sets, daily range): BP systolic 113–153; BP diastolic 61–121
[2020-02-17] MEDS: SODIUM CHLORIDE 0.9% 1,000 ML IV SCH ×3 (00:09→21:44)
[2020-02-17] MEDS: SODIUM CHLORIDE 0.9% INJ 3ML FLUSH IVF SCH ×3 (06:06→21:53)
[2020-02-17 06:55] LABS: BASOPHILS % 0.5 % (0.0-2.0); EOSINOPHILS % 0.6 % (0.0-5.0); HEMATOCRIT. 32.6 % (42.0-52.0); HEMOGLOBIN. 10.6 g/dL (14.0-18.0); LYMPHOCYTES % 18.8 % (20.0-50.0); MEAN CORPUSCULAR VOLUME 92.7 fL (80.0-94.0); MEAN PLATELET VOLUME 8.6 fl (7.4-10.4); MONOCYTES % 14.2 % (2.0-8.0); NEUTROPHILS % 65.9 % (40.0-76.0); PLATELET 176 x1000/uL (130-400); RED BLOOD CELL COUNT 3.52 mill/uL (4.7-6.1); RED CELL DISTRIBUTION WIDTH 15.8 % (11.6-14.6)
[2020-02-17 07:12] LABS: PHOSPHORUS 3.5 mg/dL (2.5-4.9)
[2020-02-17] MEDS: BLOOD SUGAR DIAGNOSTIC STRIP TEST SCH ×4 (07:48→21:44)
[2020-02-17] MEDS: INSULIN LISPRO 100 UNITS/ML SUBCUT SCH ×4 (08:00→21:54)
[2020-02-17] MEDS: ATENOLOL 25MG TABLET PO SCH ×2 (08:34→21:43)
[2020-02-17] MEDS ORDERED: ENOXAPARIN 40MG/0.4ML SYR SUBCUT SCH (18:00)
[2020-02-17 19:06] LABS: ANTI-NUCLEAR ANTIBODIES DIRECT Negative (Negative)
[2020-02-18 01:00] VITALS: BP 138/75
[2020-02-18] MEDS: SODIUM CHLORIDE 0.9% INJ 3ML FLUSH IVF SCH ×3 (06:12→21:08)
[2020-02-18] MEDS: SODIUM CHLORIDE 0.9% 1,000 ML IV SCH ×2 (06:12→18:06)
[2020-02-18] MEDS: BLOOD SUGAR DIAGNOSTIC STRIP TEST SCH ×4 (07:30→21:08)
[2020-02-18 08:00] VITALS: BP 124/69
[2020-02-18] MEDS: INSULIN LISPRO 100 UNITS/ML SUBCUT SCH ×4 (08:54→21:07)
[2020-02-18] MEDS: ATENOLOL 25MG TABLET PO SCH ×2 (08:54→21:06)
[2020-02-18 12:00] VITALS: BP 120/69
[2020-02-18] MEDS: ENOXAPARIN 120MG/0.8ML SYR SUBCUT SCH (13:20)
[2020-02-18] MEDS ORDERED: ALBUTEROL (0.083%) 2.5MG/3ML NEB HHN PRN (14:15)
[2020-02-18 16:00] VITALS: BP 143/90
[2020-02-18 20:00] VITALS: BP 151/92
[2020-02-18] MEDS: ALBUTEROL (0.083%) 2.5MG/3ML NEB HHN SCH (21:38)
[2020-02-19] VITALS: BP 146/96
[2020-02-19] MEDS: SODIUM CHLORIDE 0.9% 1,000 ML IV SCH (01:18)
[2020-02-19 04:00] VITALS: BP 141/81
[2020-02-19] MEDS: SODIUM CHLORIDE 0.9% INJ 3ML FLUSH IVF SCH ×3 (05:53→21:20)
[2020-02-19 07:27] LABS: INR 1.1; PROTHROMBIN TIME 11.3 sec (9.6-11.0)
[2020-02-19] MEDS: BLOOD SUGAR DIAGNOSTIC STRIP TEST SCH ×4 (07:30→21:00)
[2020-02-19 08:00] VITALS: BP 151/92
[2020-02-19] MEDS: INSULIN LISPRO 100 UNITS/ML SUBCUT SCH ×4 (08:00→21:37)
[2020-02-19] MEDS: ENOXAPARIN 120MG/0.8ML SYR SUBCUT SCH (09:04)
[2020-02-19] MEDS: ATENOLOL 25MG TABLET PO SCH ×2 (09:04→21:25)
[2020-02-19] MEDS: FUROSEMIDE 40MG TABLET PO SCH (09:04)
[2020-02-19] MEDS: ALBUTEROL (0.083%) 2.5MG/3ML NEB HHN SCH ×2 (09:13→20:43)
[2020-02-19] MEDS ORDERED: SODIUM POLYSTYRENE SULFONATE 15 G/60 ML BOT PO NR (10:00)
[2020-02-19 12:00] VITALS: BP 148/86
[2020-02-19] MEDS ORDERED: LIDOCAINE HCL 1% 20ML VIAL (Pyxis) INJ ONE (14:47)
[2020-02-19] MEDS ORDERED: SODIUM BICARBONATE 4% (2.4MEQ) 5ML VIAL IV ONE (14:47)
[2020-02-19 16:00] VITALS: BP 122/69
[2020-02-19 20:00] VITALS: BP 134/76
[2020-02-19] MEDS: AMLODIPINE 5MG TABLET PO SCH (21:26)
[2020-02-20] VITALS (8 sets, daily range): BP systolic 130–155; BP diastolic 78–83
[2020-02-20] MEDS: SODIUM CHLORIDE 0.9% INJ 3ML FLUSH IVF SCH ×2 (05:42→12:38)
[2020-02-20 06:33] LABS: BASOPHILS % 0.8 % (0.0-2.0); EOSINOPHILS % 1.4 % (0.0-5.0); HEMATOCRIT. 31.5 % (42.0-52.0); HEMOGLOBIN. 10.2 g/dL (14.0-18.0); LYMPHOCYTES % 24.2 % (20.0-50.0); MEAN CORPUSCULAR HEMOGLOBIN 29.7 pg (28.0-32.0); MEAN CORPUSCULAR VOLUME 91.3 fL (80.0-94.0); MONOCYTES % 12.4 % (2.0-8.0); NEUTROPHILS % 61.2 % (40.0-76.0); PLATELET 202 x1000/uL (130-400); RED BLOOD CELL COUNT 3.45 mill/uL (4.7-6.1); RED CELL DISTRIBUTION WIDTH 15.3 % (11.6-14.6)
[2020-02-20] MEDS: BLOOD SUGAR DIAGNOSTIC STRIP TEST SCH ×3 (08:11→17:06)
[2020-02-20] MEDS: ENOXAPARIN 120MG/0.8ML SYR SUBCUT SCH (08:40)
[2020-02-20] MEDS: AMLODIPINE 5MG TABLET PO SCH (08:40)
[2020-02-20] MEDS: ATENOLOL 25MG TABLET PO SCH (08:41)
[2020-02-20] MEDS: FUROSEMIDE 40MG TABLET PO SCH (08:41)
[2020-02-20] MEDS: INSULIN LISPRO 100 UNITS/ML SUBCUT SCH ×2 (08:42→12:38)
[2020-02-20] MEDS: ALBUTEROL (0.083%) 2.5MG/3ML NEB HHN SCH (10:07)
== END 2020-02-20 17:30 | DRG 682 ==
LOC: ER 15:00 → MICUSO 19:59 → EDBEDREQ 20:07 → 5EST 02-16 01:53 → UNDODISIN 02-20 18:08
PROVIDERS: ADMIT Physical Medicine & Rehabilitation Spinal Cord Injury Medicine; ATTEND Internal Medicine
PROC: 02HV33Z Insertion of Infusion Device into Superior Vena Cava, Percutaneous Approach (ICD-10-PCS; principal; 2020-02-19)
PROC: B548ZZA Ultrasonography of Superior Vena Cava, Guidance (ICD-10-PCS; 2020-02-19)
DX: N17.9 Acute kidney failure, unspecified (principal); J96.01 Acute respiratory failure with hypoxia; I13.0 Hypertensive heart and chronic kidney disease with heart failure and stage 1 through stage 4 chronic kidney disease, or unspecified chronic kidney disease; D68.69 Other thrombophilia; G82.20 Paraplegia, unspecified; Z68.41 Body mass index [BMI] 40.0-44.9, adult; N18.9 Chronic kidney disease, unspecified; J44.9 Chronic obstructive pulmonary disease, unspecified; I50.9 Heart failure, unspecified; I48.0 Paroxysmal atrial fibrillation; I25.10 Atherosclerotic heart disease of native coronary artery without angina pectoris; E11.22 Type 2 diabetes mellitus with diabetic chronic kidney disease; E11.51 Type 2 diabetes mellitus with diabetic peripheral angiopathy without gangrene; E66.01 Morbid (severe) obesity due to excess calories; E78.5 Hyperlipidemia, unspecified; E87.5 Hyperkalemia; D64.9 Anemia, unspecified; E78.00 Pure hypercholesterolemia, unspecified; G47.33 Obstructive sleep apnea (adult) (pediatric); M48.061 Spinal stenosis, lumbar region without neurogenic claudication; E03.9 Hypothyroidism, unspecified; Z86.718 Personal history of other venous thrombosis and embolism; Z95.0 Presence of cardiac pacemaker; Z79.01 Long term (current) use of anticoagulants; Z79.84 Long term (current) use of oral hypoglycemic drugs; Z79.899 Other long term (current) drug therapy; Z82.49 Family history of ischemic heart disease and other diseases of the circulatory system; Z86.711 Personal history of pulmonary embolism; Q63.2 Ectopic kidney
CPT/HCPCS: 36415; 71045; 74176; 76770; 76937; 80048; 80305; 81003; 82550; 82962; 83036; 83735; 84100; 84132; 84153; 85025; 86038; 86160; 93005; 93306; 93970; 94640; 97116; 97162; 97530; 99285; C1725; J1200; J1650; J1815; J3490; G0103

== ENCOUNTER 2020-02-20 17:55 | Inpatient (IN) | payer MEDICARE, BC ==
[~2020-02-20] VITALS: Ht 172.7 cm; Wt 127.4 kg
[2020-02-20 20:00] VITALS: BP 128/69
[2020-02-20] MEDS ORDERED: DIPHENHYDRAMINE 50MG/ML VIAL IV PRN (20:45)
[2020-02-20] MEDS ORDERED: CLONIDINE 0.1MG TABLET PO PRN (20:45)
[2020-02-20] MEDS ORDERED: ONDANSETRON HCL 4MG/2ML INJ IV PRN (20:45)
[2020-02-20] MEDS ORDERED: ACETAMINOPHEN 325MG TABLET PO PRN (20:45)
[2020-02-20] MEDS ORDERED: ALBUTEROL (0.083%) 2.5MG/3ML NEB HHN PRN (20:45)
[2020-02-20] MEDS ORDERED: DEXTROSE 50% WATER 50ML SYRINGE IV PRN (20:45)
[2020-02-20] MEDS: BLOOD SUGAR DIAGNOSTIC STRIP TEST SCH (21:41)
[2020-02-20] MEDS: AMLODIPINE 5MG TABLET PO SCH (21:41)
[2020-02-20] MEDS: ATENOLOL 25MG TABLET PO SCH (21:41)
[2020-02-20] MEDS: SODIUM CHLORIDE 0.9% INJ 3ML FLUSH IVF SCH (21:42)
[2020-02-20] MEDS: INSULIN LISPRO 100 UNITS/ML SUBCUT SCH (22:07)
[2020-02-21 05:17] LABS: CHLORIDE 109 mEq/L (98-107)
[2020-02-21] MEDS: BLOOD SUGAR DIAGNOSTIC STRIP TEST SCH ×4 (05:43→21:32)
[2020-02-21] MEDS: SODIUM CHLORIDE 0.9% INJ 3ML FLUSH IVF SCH ×3 (05:45→22:00)
[2020-02-21] MEDS: INSULIN LISPRO 100 UNITS/ML SUBCUT SCH ×4 (06:01→22:28)
[2020-02-21 06:02] LABS: BASOPHILS % 0.8 % (0.0-2.0); EOSINOPHILS % 1.4 % (0.0-5.0); HEMATOCRIT. 33.6 % (42.0-52.0); HEMOGLOBIN. 11.3 g/dL (14.0-18.0); LYMPHOCYTES % 28.3 % (20.0-50.0); MEAN CORPUSCULAR HEMOGLOBIN 30.6 pg (28.0-32.0); MEAN CORPUSCULAR VOLUME 90.7 fL (80.0-94.0); MEAN PLATELET VOLUME 8.1 fl (7.4-10.4); MONOCYTES % 12.9 % (2.0-8.0); NEUTROPHILS % 56.6 % (40.0-76.0); PLATELET 220 x1000/uL (130-400); RED BLOOD CELL COUNT 3.71 mill/uL (4.7-6.1); RED CELL DISTRIBUTION WIDTH 15.1 % (11.6-14.6)
[2020-02-21 08:00] VITALS: BP 103/60
[2020-02-21] MEDS: ENOXAPARIN 120MG/0.8ML SYR SUBCUT SCH (08:21)
[2020-02-21] MEDS: ATENOLOL 25MG TABLET PO SCH ×2 (08:23→21:27)
[2020-02-21] MEDS: AMLODIPINE 5MG TABLET PO SCH ×2 (08:23→21:26)
[2020-02-21] MEDS: FUROSEMIDE 40MG TABLET PO SCH (08:23)
[2020-02-21 20:00] VITALS: BP 124/68
[2020-02-22] MEDS: SODIUM CHLORIDE 0.9% INJ 3ML FLUSH IVF SCH ×3 (05:11→22:00)
[2020-02-22] MEDS: BLOOD SUGAR DIAGNOSTIC STRIP TEST SCH ×4 (06:30→20:49)
[2020-02-22 08:00] VITALS: BP 149/97
[2020-02-22] MEDS: ENOXAPARIN 120MG/0.8ML SYR SUBCUT SCH (08:05)
[2020-02-22] MEDS: AMLODIPINE 5MG TABLET PO SCH ×2 (08:05→20:49)
[2020-02-22] MEDS: FUROSEMIDE 40MG TABLET PO SCH (08:05)
[2020-02-22] MEDS: ATENOLOL 25MG TABLET PO SCH ×2 (08:05→20:49)
[2020-02-22] MEDS: INSULIN LISPRO 100 UNITS/ML SUBCUT SCH ×4 (08:09→20:53)
[2020-02-22 09:25] LABS: BASOPHILS % 1.3 % (0.0-2.0); EOSINOPHILS % 1.6 % (0.0-5.0); HEMATOCRIT. 35.2 % (42.0-52.0); HEMOGLOBIN. 11.6 g/dL (14.0-18.0); LYMPHOCYTES % 28.1 % (20.0-50.0); MEAN CORPUSCULAR VOLUME 91.1 fL (80.0-94.0); MEAN PLATELET VOLUME 7.8 fl (7.4-10.4); MONOCYTES % 10.2 % (2.0-8.0); NEUTROPHILS % 58.8 % (40.0-76.0); PLATELET 242 x1000/uL (130-400); RED BLOOD CELL COUNT 3.87 mill/uL (4.7-6.1); RED CELL DISTRIBUTION WIDTH 15.1 % (11.6-14.6)
[2020-02-22 10:01] LABS: PHOSPHORUS 2.8 mg/dL (2.5-4.9)
[2020-02-22 10:30] LABS: VITAMIN B12 SERUM > 2000.0 pg/mL (211-911)
[2020-02-22 10:57] LABS: FERRITIN 279 ng/mL (22-322)
[2020-02-22 20:00] VITALS: BP 125/75
[2020-02-23 05:22] LABS: T4 FREE 1.37 ng/dL (0.76-1.46)
[2020-02-23] MEDS: BLOOD SUGAR DIAGNOSTIC STRIP TEST SCH ×4 (05:33→21:12)
[2020-02-23 05:47] LABS: EOSINOPHILS % 1.8 % (0.0-5.0); HEMATOCRIT. 32.3 % (42.0-52.0); HEMOGLOBIN. 10.7 g/dL (14.0-18.0); LYMPHOCYTES % 31.3 % (20.0-50.0); MEAN CORPUSCULAR HEMOGLOBIN 30.1 pg (28.0-32.0); MEAN PLATELET VOLUME 7.9 fl (7.4-10.4); MONOCYTES % 12.1 % (2.0-8.0); NEUTROPHILS % 53.8 % (40.0-76.0); PLATELET 222 x1000/uL (130-400); RED BLOOD CELL COUNT 3.55 mill/uL (4.7-6.1); RED CELL DISTRIBUTION WIDTH 15.3 % (11.6-14.6)
[2020-02-23] MEDS: INSULIN LISPRO 100 UNITS/ML SUBCUT SCH ×5 (06:39→17:17)
[2020-02-23 08:00] VITALS: BP 102/69
[2020-02-23] MEDS: AMLODIPINE 5MG TABLET PO SCH ×2 (08:41→21:17)
[2020-02-23] MEDS: ENOXAPARIN 120MG/0.8ML SYR SUBCUT SCH (08:41)
[2020-02-23] MEDS: ATENOLOL 25MG TABLET PO SCH ×2 (08:41→21:17)
[2020-02-23] MEDS: ALBUTEROL (0.083%) 2.5MG/3ML NEB HHN SCH (09:00)
[2020-02-23 20:00] VITALS: BP 112/66
[2020-02-23] MEDS ORDERED: INSULIN GLARGINE UD 100 UNITS/ML SYR SUBCUT SCH (22:00)
[2020-02-24] MEDS: BLOOD SUGAR DIAGNOSTIC STRIP TEST SCH ×4 (05:51→21:04)
[2020-02-24] MEDS: INSULIN LISPRO 100 UNITS/ML SUBCUT SCH ×6 (06:20→18:06)
[2020-02-24] MEDS: LEVOTHYROXINE SODIUM 25MCG TABLET PO SCH (06:21)
[2020-02-24 08:00] VITALS: BP 128/63
[2020-02-24] MEDS: ALBUTEROL (0.083%) 2.5MG/3ML NEB HHN SCH ×2 (09:11→22:11)
[2020-02-24] MEDS: AMLODIPINE 5MG TABLET PO SCH ×2 (10:31→21:03)
[2020-02-24] MEDS: ATENOLOL 25MG TABLET PO SCH ×2 (10:31→21:04)
[2020-02-24] MEDS: ENOXAPARIN 120MG/0.8ML SYR SUBCUT SCH (10:32)
[2020-02-24 21:02] VITALS: BP 132/75
[2020-02-24] MEDS: INSULIN GLARGINE UD 100 UNITS/ML SYR SUBCUT SCH (21:23)
[2020-02-25] MEDS: LEVOTHYROXINE SODIUM 25MCG TABLET PO SCH (06:30)
[2020-02-25] MEDS: BLOOD SUGAR DIAGNOSTIC STRIP TEST SCH ×4 (06:30→21:45)
[2020-02-25 06:34] LABS: BASOPHILS % 0.6 % (0.0-2.0); EOSINOPHILS % 1.3 % (0.0-5.0); HEMATOCRIT. 32.8 % (42.0-52.0); LYMPHOCYTES % 30.7 % (20.0-50.0); MEAN CORPUSCULAR HEMOGLOBIN 30.5 pg (28.0-32.0); MEAN CORPUSCULAR VOLUME 91.3 fL (80.0-94.0); MEAN PLATELET VOLUME 8.1 fl (7.4-10.4); MONOCYTES % 13.5 % (2.0-8.0); NEUTROPHILS % 53.9 % (40.0-76.0); PLATELET 238 x1000/uL (130-400); RED BLOOD CELL COUNT 3.59 mill/uL (4.7-6.1); RED CELL DISTRIBUTION WIDTH 15.2 % (11.6-14.6)
[2020-02-25 08:00] VITALS: BP 133/68
[2020-02-25] MEDS: INSULIN LISPRO 100 UNITS/ML SUBCUT SCH ×6 (08:12→17:05)
[2020-02-25] MEDS: ALBUTEROL (0.083%) 2.5MG/3ML NEB HHN SCH ×3 (08:15→21:22)
[2020-02-25] MEDS: AMLODIPINE 5MG TABLET PO SCH ×2 (09:18→21:45)
[2020-02-25] MEDS: ENOXAPARIN 120MG/0.8ML SYR SUBCUT SCH (09:19)
[2020-02-25] MEDS: ATENOLOL 25MG TABLET PO SCH ×2 (09:19→21:45)
[2020-02-25 20:00] VITALS: BP 123/61
[2020-02-25] MEDS: INSULIN GLARGINE UD 100 UNITS/ML SYR SUBCUT SCH (21:56)
[2020-02-25 23:14] VITALS: BP 123/61
[2020-02-26 04:07] LABS: 25-HYDROXY VITAMIN D3 45 ng/mL (.)
[2020-02-26] MEDS: BLOOD SUGAR DIAGNOSTIC STRIP TEST SCH ×4 (05:57→21:20)
[2020-02-26] MEDS: LEVOTHYROXINE SODIUM 25MCG TABLET PO SCH (06:00)
[2020-02-26] MEDS: INSULIN LISPRO 100 UNITS/ML SUBCUT SCH ×4 (07:00→17:17)
[2020-02-26 07:55] VITALS: BP 157/91
[2020-02-26] MEDS: ENOXAPARIN 120MG/0.8ML SYR SUBCUT SCH (08:00)
[2020-02-26] MEDS: AMLODIPINE 5MG TABLET PO SCH ×2 (08:00→21:23)
[2020-02-26] MEDS: ATENOLOL 25MG TABLET PO SCH ×2 (08:00→21:22)
[2020-02-26] MEDS: INSULIN LISPRO (CUSTOM DOSE) 100 UNITS/ML SUBCUT SCH ×2 (12:24→17:00)
[2020-02-26 20:00] VITALS: BP 127/75
[2020-02-26] MEDS: ALBUTEROL (0.083%) 2.5MG/3ML NEB HHN SCH (22:07)
[2020-02-26] MEDS: INSULIN GLARGINE UD 100 UNITS/ML SYR SUBCUT SCH (22:33)
[2020-02-27] MEDS: BLOOD SUGAR DIAGNOSTIC STRIP TEST SCH ×4 (06:35→21:53)
[2020-02-27] MEDS: INSULIN LISPRO (CUSTOM DOSE) 100 UNITS/ML SUBCUT SCH ×3 (06:36→16:15)
[2020-02-27] MEDS: LEVOTHYROXINE SODIUM 25MCG TABLET PO SCH (06:56)
[2020-02-27] MEDS: INSULIN LISPRO 100 UNITS/ML SUBCUT SCH ×3 (07:08→17:06)
[2020-02-27 08:00] VITALS: BP 135/76
[2020-02-27] MEDS: ATENOLOL 25MG TABLET PO SCH ×2 (08:48→21:53)
[2020-02-27] MEDS: AMLODIPINE 5MG TABLET PO SCH ×2 (08:48→21:53)
[2020-02-27] MEDS: ENOXAPARIN 120MG/0.8ML SYR SUBCUT SCH (08:49)
[2020-02-27] MEDS: ALBUTEROL (0.083%) 2.5MG/3ML NEB HHN SCH ×2 (09:34→21:37)
[2020-02-27 20:00] VITALS: BP 126/66
[2020-02-27] MEDS: INSULIN GLARGINE UD 100 UNITS/ML SYR SUBCUT SCH (22:02)
[2020-02-28] MEDS: BLOOD SUGAR DIAGNOSTIC STRIP TEST SCH ×4 (06:16→21:31)
[2020-02-28] MEDS: LEVOTHYROXINE SODIUM 25MCG TABLET PO SCH (06:16)
[2020-02-28] MEDS: INSULIN LISPRO (CUSTOM DOSE) 100 UNITS/ML SUBCUT SCH ×3 (06:20→16:18)
[2020-02-28 06:25] LABS: HEMATOCRIT. 32.8 % (42.0-52.0); HEMOGLOBIN. 10.8 g/dL (14.0-18.0); MEAN CORPUSCULAR HEMOGLOBIN 30.2 pg (28.0-32.0); MEAN CORPUSCULAR VOLUME 92.1 fL (80.0-94.0); MEAN PLATELET VOLUME 8.6 fl (7.4-10.4); PLATELET 295 x1000/uL (130-400); RED BLOOD CELL COUNT 3.56 mill/uL (4.7-6.1); RED CELL DISTRIBUTION WIDTH 15.7 % (11.6-14.6)
[2020-02-28] MEDS: INSULIN LISPRO 100 UNITS/ML SUBCUT SCH ×3 (06:25→17:17)
[2020-02-28 06:59] LABS: PHOSPHORUS 2.8 mg/dL (2.5-4.9)
[2020-02-28 08:00] VITALS: BP 134/69
[2020-02-28] MEDS: ATENOLOL 25MG TABLET PO SCH ×2 (08:31→21:30)
[2020-02-28] MEDS: AMLODIPINE 5MG TABLET PO SCH ×2 (08:31→21:30)
[2020-02-28] MEDS: ENOXAPARIN 120MG/0.8ML SYR SUBCUT SCH ×2 (08:31→21:31)
[2020-02-28 20:00] VITALS: BP 128/78
[2020-02-28] MEDS ORDERED: TEMAZEPAM 15MG CAPSULE PO PRN (21:00)
[2020-02-28] MEDS: ALBUTEROL (0.083%) 2.5MG/3ML NEB HHN SCH (21:08)
[2020-02-28] MEDS: INSULIN GLARGINE UD 100 UNITS/ML SYR SUBCUT SCH (21:47)
[2020-02-29] MEDS: BLOOD SUGAR DIAGNOSTIC STRIP TEST SCH ×2 (06:15→11:15)
[2020-02-29] MEDS: LEVOTHYROXINE SODIUM 25MCG TABLET PO SCH (06:15)
[2020-02-29] MEDS: INSULIN LISPRO (CUSTOM DOSE) 100 UNITS/ML SUBCUT SCH ×2 (06:19→12:42)
[2020-02-29] MEDS: INSULIN LISPRO 100 UNITS/ML SUBCUT SCH ×2 (06:25→12:54)
[2020-02-29 08:00] VITALS: BP 125/72
[2020-02-29] MEDS: ATENOLOL 25MG TABLET PO SCH (08:48)
[2020-02-29] MEDS: AMLODIPINE 5MG TABLET PO SCH (08:49)
[2020-02-29] MEDS: ENOXAPARIN 120MG/0.8ML SYR SUBCUT SCH (08:49)
[2020-02-29 11:27] VITALS: BP 125/72
[2020-02-29 11:58] LABS: PLATELET ESTIMATE NORMAL
== END 2020-02-29 13:18 | disposition home or self-care (01) | DRG 71 ==
PROVIDERS: ADMIT Physical Medicine & Rehabilitation Spinal Cord Injury Medicine; ATTEND Internal Medicine
PROC: 5A09357 Assistance with Respiratory Ventilation, Less than 24 Consecutive Hours, Continuous Positive Airway Pressure (ICD-10-PCS; principal; 2020-02-27)
DX: G93.41 Metabolic encephalopathy (principal); D68.59 Other primary thrombophilia; E46 Unspecified protein-calorie malnutrition; I13.0 Hypertensive heart and chronic kidney disease with heart failure and stage 1 through stage 4 chronic kidney disease, or unspecified chronic kidney disease; J98.11 Atelectasis; N17.9 Acute kidney failure, unspecified; Z68.42 Body mass index [BMI] 45.0-49.9, adult; R53.81 Other malaise; G82.20 Paraplegia, unspecified; D64.9 Anemia, unspecified; E03.9 Hypothyroidism, unspecified; E11.22 Type 2 diabetes mellitus with diabetic chronic kidney disease; E66.01 Morbid (severe) obesity due to excess calories; E78.00 Pure hypercholesterolemia, unspecified; E78.5 Hyperlipidemia, unspecified; E87.5 Hyperkalemia; G47.33 Obstructive sleep apnea (adult) (pediatric); I48.0 Paroxysmal atrial fibrillation; I25.10 Atherosclerotic heart disease of native coronary artery without angina pectoris; I50.9 Heart failure, unspecified; J44.9 Chronic obstructive pulmonary disease, unspecified; M48.061 Spinal stenosis, lumbar region without neurogenic claudication; N18.3 Chronic kidney disease, stage 3 (moderate); R13.10 Dysphagia, unspecified; R20.0 Anesthesia of skin; Z60.2 Problems related to living alone; R41.89 Other symptoms and signs involving cognitive functions and awareness; M54.5 Low back pain; Z79.01 Long term (current) use of anticoagulants; Z86.718 Personal history of other venous thrombosis and embolism; Z87.891 Personal history of nicotine dependence; Z95.0 Presence of cardiac pacemaker; Z98.42 Cataract extraction status, left eye; Z79.4 Long term (current) use of insulin; Z79.890 Hormone replacement therapy; Z79.84 Long term (current) use of oral hypoglycemic drugs; Z79.899 Other long term (current) drug therapy
CPT/HCPCS: 36415; 80048; 80053; 82306; 82550; 82607; 82728; 82746; 82962; 83540; 83550; 83735; 84100; 84134; 84439; 84443; 84481; 85025; 92523; 92610; 93005; 93970; 94640; 94660; 97110; 97112; 97116; 97162; 97166; 97530; 97535; J1650; J1815

== ENCOUNTER 2020-04-29 09:11 | Inpatient (IN) | payer MEDICARE, BC ==
[~2020-04-29] VITALS: Ht 170.2 cm; Wt 118.8 kg
[2020-04-29] MEDS ORDERED: ONDANSETRON HCL 4MG/2ML INJ IV STA (10:02)
[2020-04-29] MEDS ORDERED: MORPHINE SULFATE 4 MG/ML CPJ (NOT FOR IM USE) IV STA (10:02)
[2020-04-29] MEDS ORDERED: FAMOTIDINE 20MG/2ML VIAL IV STA (10:02)
[2020-04-29 10:50] LABS: BASOPHILS % 0.5 % (0.0-2.0); EOSINOPHILS % 1.5 % (0.0-5.0); HEMATOCRIT. 39.2 % (42.0-52.0); HEMOGLOBIN. 12.9 g/dL (14.0-18.0); LYMPHOCYTES % 20.1 % (20.0-50.0); MEAN CORPUSCULAR HEMOGLOBIN 29.8 pg (28.0-32.0); MEAN CORPUSCULAR VOLUME 90.4 fL (80.0-94.0); MEAN PLATELET VOLUME 8.4 fl (7.4-10.4); MONOCYTES % 13.2 % (2.0-8.0); NEUTROPHILS % 64.7 % (40.0-76.0); PLATELET 282 x1000/uL (130-400); RED BLOOD CELL COUNT 4.33 mill/uL (4.7-6.1); RED CELL DISTRIBUTION WIDTH 15.5 % (11.6-14.6)
[2020-04-29 10:55] LABS: CHLORIDE 108 mEq/L (98-107)
[2020-04-29 10:59] LABS: ETHANOL BLOOD < 10 mg/dL; INR 1.1
[2020-04-29] MEDS ORDERED: MAGNESIUM/ALUMINUM HYDROXIDE/SIMETHICONE 30ML UDC PO PRN (13:00)
[2020-04-29] MEDS ORDERED: ONDANSETRON HCL 4MG/2ML INJ IV PRN (13:00)
[2020-04-29] MEDS ORDERED: GUAIFENESIN 200MG/10ML SUGAR FREE UDC PO PRN (13:00)
[2020-04-29] MEDS ORDERED: CLONIDINE 0.1MG TABLET PO PRN (13:00)
[2020-04-29] MEDS ORDERED: KETOROLAC 15MG/ML VIAL IV PRN (13:00)
[2020-04-29] MEDS ORDERED: ACETAMINOPHEN 325MG TABLET PO PRN (13:00)
[2020-04-29] MEDS ORDERED: DOCUSATE SODIUM 100MG CAPSULE PO PRN (13:00)
[2020-04-29] MEDS: PANTOPRAZOLE SODIUM 40 MG/VIAL IV SCH (13:50)
[2020-04-29] MEDS ORDERED: SODIUM POLYSTYRENE SULFONATE 15 G/60 ML BOT PO NR (14:00)
[2020-04-29 14:10] VITALS: BP 126/69
[2020-04-29] MEDS: HYDRALAZINE HCL 25MG TABLET PO SCH ×2 (15:04→21:33)
[2020-04-29 16:00] VITALS: BP 157/72
[2020-04-29] MEDS ORDERED: RIVAROXABAN 15 MG TABLET PO SCH (17:00)
[2020-04-29] MEDS ORDERED: DEXTROSE 50% WATER 50ML SYRINGE IV PRN (20:00)
[2020-04-29 20:01] VITALS: BP 138/73
[2020-04-29] MEDS: BLOOD SUGAR DIAGNOSTIC STRIP TEST SCH (21:00)
[2020-04-29] MEDS: METOPROLOL TARTRATE 25MG TABLET PO SCH (21:34)
[2020-04-29] MEDS ORDERED: INSULIN GLARGINE UD 100 UNITS/ML SYR SUBCUT SCH (22:00)
[2020-04-29] MEDS: INSULIN LISPRO 100 UNITS/ML SUBCUT SCH (23:38)
[2020-04-29] MEDS: INSULIN GLARGINE UD 100 UNITS/ML SYR SUBCUT SCH (23:42)
[2020-04-30] VITALS (7 sets, daily range): BP systolic 95–133; BP diastolic 52–79
[2020-04-30 03:13] LABS: CLARITY URINE TURBID (CLEAR); COLOR URINE ORANGE (YELLOW); KETONES URINE NEGATIVE (NEGATIVE); LEUKOCYTE ESTERASE URINE TRACE (NEGATIVE); NITRITE URINE POSITIVE (NEGATIVE); OCCULT BLOOD URINE NEGATIVE (NEGATIVE); PROTEIN URINE TRACE (NEGATIVE); SPECIFIC GRAVITY URINE 1.027 (1.005-1.030)
[2020-04-30 04:17] LABS: *AMPHETAMINES SCREEN URINE NEGATIVE (NEGATIVE)
[2020-04-30 04:18] LABS: *BARBITURATES SCREEN URINE NEGATIVE (NEGATIVE); *BENZODIAZEPINES SCREEN URINE NEGATIVE (NEGATIVE); *COCAINE SCREEN URINE NEGATIVE (NEGATIVE); METHADONE URINE SCREEN NEGATIVE (NEGATIVE); OPIATES URINE SCREEN PRESUMTIVE POSITIVE (NEGATIVE); PHENCYCLIDINE URINE SCREEN NEGATIVE (NEGATIVE)
[2020-04-30 04:19] LABS: CANNABINOID URINE SCREEN NEGATIVE (NEGATIVE)
[2020-04-30] MEDS: HYDRALAZINE HCL 25MG TABLET PO SCH ×2 (05:43→17:07)
[2020-04-30 06:10] LABS: BASOPHILS % 0.3 % (0.0-2.0); EOSINOPHILS % 0.9 % (0.0-5.0); HEMATOCRIT. 36.5 % (42.0-52.0); HEMOGLOBIN. 11.9 g/dL (14.0-18.0); LYMPHOCYTES % 8.4 % (20.0-50.0); MEAN CORPUSCULAR HEMOGLOBIN 29.3 pg (28.0-32.0); MEAN CORPUSCULAR VOLUME 89.6 fL (80.0-94.0); MEAN PLATELET VOLUME 8.2 fl (7.4-10.4); MONOCYTES % 14.6 % (2.0-8.0); NEUTROPHILS % 75.8 % (40.0-76.0); PLATELET 251 x1000/uL (130-400); RED BLOOD CELL COUNT 4.08 mill/uL (4.7-6.1); RED CELL DISTRIBUTION WIDTH 15.2 % (11.6-14.6)
[2020-04-30 06:21] LABS: CHLORIDE 107 mEq/L (98-107)
[2020-04-30] MEDS: BLOOD SUGAR DIAGNOSTIC STRIP TEST SCH ×4 (06:29→21:00)
[2020-04-30] MEDS: INSULIN LISPRO 100 UNITS/ML SUBCUT SCH ×4 (06:33→22:37)
[2020-04-30] MEDS: METOPROLOL TARTRATE 25MG TABLET PO SCH ×2 (09:00→22:34)
[2020-04-30] MEDS: AMLODIPINE 10MG TABLET PO SCH (09:00)
[2020-04-30] MEDS: PANTOPRAZOLE SODIUM 40 MG/VIAL IV SCH (09:32)
[2020-04-30] MEDS: PIPERACILLIN/TAZOBACTAM 2.25 G in DEXTROSE 5% WATER 50 ML IV SCH ×2 (17:03→22:35)
[2020-04-30] MEDS: INSULIN GLARGINE UD 100 UNITS/ML SYR SUBCUT SCH (22:38)
[2020-05-01] VITALS (21 sets, daily range): BP systolic 94–165; BP diastolic 53–86
[2020-05-01] MEDS: BLOOD SUGAR DIAGNOSTIC STRIP TEST SCH ×4 (06:29→21:27)
[2020-05-01] MEDS: PIPERACILLIN/TAZOBACTAM 2.25 G in DEXTROSE 5% WATER 50 ML IV SCH ×3 (06:29→21:30)
[2020-05-01 07:26] LABS: BASOPHILS % 0.6 % (0.0-2.0); EOSINOPHILS % 1.4 % (0.0-5.0); HEMATOCRIT. 36.6 % (42.0-52.0); MEAN CORPUSCULAR HEMOGLOBIN 29.5 pg (28.0-32.0); MEAN CORPUSCULAR VOLUME 90.1 fL (80.0-94.0); MEAN PLATELET VOLUME 8.3 fl (7.4-10.4); MONOCYTES % 11.1 % (2.0-8.0); NEUTROPHILS % 72.9 % (40.0-76.0); PLATELET 240 x1000/uL (130-400); RED BLOOD CELL COUNT 4.06 mill/uL (4.7-6.1); RED CELL DISTRIBUTION WIDTH 15.4 % (11.6-14.6)
[2020-05-01] MEDS: PANTOPRAZOLE SODIUM 40 MG/VIAL IV SCH (08:48)
[2020-05-01] MEDS: INSULIN LISPRO 100 UNITS/ML SUBCUT SCH ×4 (08:48→21:32)
[2020-05-01] MEDS: METOPROLOL TARTRATE 25MG TABLET PO SCH ×2 (09:00→21:29)
[2020-05-01] MEDS: AMLODIPINE 10MG TABLET PO SCH (09:00)
[2020-05-01] MEDS: HYDRALAZINE HCL 25MG TABLET PO SCH (09:00)
[2020-05-01] MEDS ORDERED: SODIUM BICARBONATE 4% (2.4MEQ) 5ML VIAL IV ONE (13:33)
[2020-05-01] MEDS ORDERED: LIDOCAINE HCL 1% 20ML VIAL (Pyxis) INJ ONE (13:34)
[2020-05-01] MEDS ORDERED: IOHEXOL-300 50 ML BOTTLE IV ONE (13:35)
[2020-05-01] MEDS ORDERED: FENTANYL CITRATE/PF 50MCG/ML 2ML VIAL ONE (14:02)
[2020-05-01] MEDS ORDERED: FENTANYL CITRATE/PF 50MCG/ML 2ML VIAL IV SCH (14:30)
[2020-05-01] MEDS: SODIUM CHLORIDE 0.45% 1,000 ML IV SCH (18:06)
[2020-05-01] MEDS: INSULIN GLARGINE UD 100 UNITS/ML SYR SUBCUT SCH (21:33)
[2020-05-02 00:27] VITALS: BP 112/68
[2020-05-02 04:00] VITALS: BP 110/67
[2020-05-02 06:00] LABS: CHLORIDE 107 mEq/L (98-107)
[2020-05-02 06:08] LABS: PHOSPHORUS 3.8 mg/dL (2.5-4.9)
[2020-05-02] MEDS: PIPERACILLIN/TAZOBACTAM 2.25 G in DEXTROSE 5% WATER 50 ML IV SCH ×3 (06:18→21:51)
[2020-05-02 06:37] LABS: BASOPHILS % 0.2 % (0.0-2.0); EOSINOPHILS % 2.5 % (0.0-5.0); HEMATOCRIT. 33.8 % (42.0-52.0); HEMOGLOBIN. 11.2 g/dL (14.0-18.0); LYMPHOCYTES % 14.5 % (20.0-50.0); MEAN CORPUSCULAR HEMOGLOBIN 29.7 pg (28.0-32.0); MEAN CORPUSCULAR VOLUME 89.6 fL (80.0-94.0); MEAN PLATELET VOLUME 8.6 fl (7.4-10.4); MONOCYTES % 10.5 % (2.0-8.0); NEUTROPHILS % 72.3 % (40.0-76.0); PLATELET 210 x1000/uL (130-400); RED BLOOD CELL COUNT 3.77 mill/uL (4.7-6.1); RED CELL DISTRIBUTION WIDTH 15.1 % (11.6-14.6)
[2020-05-02] MEDS: BLOOD SUGAR DIAGNOSTIC STRIP TEST SCH ×4 (07:31→21:52)
[2020-05-02 08:00] VITALS: BP 107/70
[2020-05-02] MEDS: INSULIN LISPRO 100 UNITS/ML SUBCUT SCH ×4 (08:43→21:59)
[2020-05-02] MEDS: SODIUM CHLORIDE 0.45% 1,000 ML IV SCH ×2 (08:44→21:05)
[2020-05-02] MEDS: PANTOPRAZOLE SODIUM 40 MG/VIAL IV SCH (08:44)
[2020-05-02] MEDS: METOPROLOL TARTRATE 25MG TABLET PO SCH ×2 (08:45→21:52)
[2020-05-02] MEDS: AMLODIPINE 10MG TABLET PO SCH (08:45)
[2020-05-02 12:00] VITALS: BP 112/64
[2020-05-02 16:00] VITALS: BP 122/70
[2020-05-02 20:37] VITALS: BP 122/70
[2020-05-02] MEDS: INSULIN GLARGINE UD 100 UNITS/ML SYR SUBCUT SCH (21:58)
[2020-05-03 00:35] VITALS: BP 146/70
[2020-05-03 04:00] VITALS: BP 134/72
[2020-05-03] MEDS: PIPERACILLIN/TAZOBACTAM 2.25 G in DEXTROSE 5% WATER 50 ML IV SCH ×2 (06:06→13:20)
[2020-05-03] MEDS: SODIUM CHLORIDE 0.45% 1,000 ML IV SCH (06:06)
[2020-05-03] MEDS: BLOOD SUGAR DIAGNOSTIC STRIP TEST SCH ×2 (06:30→13:09)
[2020-05-03 06:59] LABS: BASOPHILS % 0.5 % (0.0-2.0); EOSINOPHILS % 2.9 % (0.0-5.0); HEMATOCRIT. 36.2 % (42.0-52.0); HEMOGLOBIN. 11.9 g/dL (14.0-18.0); LYMPHOCYTES % 22.8 % (20.0-50.0); MEAN CORPUSCULAR HEMOGLOBIN 29.5 pg (28.0-32.0); MEAN CORPUSCULAR VOLUME 90.1 fL (80.0-94.0); MEAN PLATELET VOLUME 8.3 fl (7.4-10.4); MONOCYTES % 10.8 % (2.0-8.0); PLATELET 224 x1000/uL (130-400); RED BLOOD CELL COUNT 4.02 mill/uL (4.7-6.1)
[2020-05-03 07:18] LABS: CHLORIDE 106 mEq/L (98-107)
[2020-05-03 08:00] VITALS: BP 118/79
[2020-05-03] MEDS: PANTOPRAZOLE SODIUM 40 MG/VIAL IV SCH (08:31)
[2020-05-03] MEDS: METOPROLOL TARTRATE 25MG TABLET PO SCH (08:32)
[2020-05-03] MEDS: AMLODIPINE 10MG TABLET PO SCH (08:33)
[2020-05-03] MEDS: INSULIN LISPRO 100 UNITS/ML SUBCUT SCH ×2 (08:34→13:21)
[2020-05-03] MEDS ORDERED: ENOXAPARIN 120MG/0.8ML SYR SUBCUT SCH (09:00)
[2020-05-03] MEDS ORDERED: ENOXAPARIN 100MG/ML SYR SUBCUT SCH (09:00)
[2020-05-03 12:00] VITALS: BP 127/72
[2020-05-03 16:00] VITALS: BP 139/78
[2020-05-03 16:28] VITALS: BP 139/78
[2020-05-04] MEDS ORDERED: FAMOTIDINE 20MG/2ML VIAL IV SCH (09:00)
== END 2020-05-03 17:15 | disposition home health service (06) | DRG 444 ==
LOC: ER 09:11 → 6WST 11:54 → EDBEDREQTM 12:02 → EDBEDREQSVC 12:02 → EDBEDREQ 12:02 → ENRESERV 13:14
PROVIDERS: ADMIT Hospitalist; ATTEND Hospitalist
PROC: 0F943ZZ Drainage of Gallbladder, Percutaneous Approach (ICD-10-PCS; principal; 2020-05-01)
DX: K80.01 Calculus of gallbladder with acute cholecystitis with obstruction (principal); N17.0 Acute kidney failure with tubular necrosis; E44.0 Moderate protein-calorie malnutrition; I13.0 Hypertensive heart and chronic kidney disease with heart failure and stage 1 through stage 4 chronic kidney disease, or unspecified chronic kidney disease; Z68.41 Body mass index [BMI] 40.0-44.9, adult; J98.11 Atelectasis; D68.69 Other thrombophilia; E11.22 Type 2 diabetes mellitus with diabetic chronic kidney disease; E87.5 Hyperkalemia; N18.9 Chronic kidney disease, unspecified; E66.01 Morbid (severe) obesity due to excess calories; I25.10 Atherosclerotic heart disease of native coronary artery without angina pectoris; I48.91 Unspecified atrial fibrillation; R74.01 Elevation of levels of liver transaminase levels; E80.6 Other disorders of bilirubin metabolism; I71.9 Aortic aneurysm of unspecified site, without rupture; Z20.828 Contact with and (suspected) exposure to other viral communicable diseases; E88.09 Other disorders of plasma-protein metabolism, not elsewhere classified; Z86.711 Personal history of pulmonary embolism; Z82.49 Family history of ischemic heart disease and other diseases of the circulatory system; Z95.0 Presence of cardiac pacemaker; Z79.01 Long term (current) use of anticoagulants; Z79.899 Other long term (current) drug therapy
CPT/HCPCS: 36415; 47490; 71045; 74176; 76700; 78227; 80048; 80053; 80076; 80305; 80320; 81003; 82248; 82962; 83735; 83880; 84100; 84484; 85025; 87075; 87426; 93005; 96374; 97116; 97162; 97166; 97530; 97535; 99285; A9537; C1729; C1769; C9113; J1650; J1815; J1885; J2270; J2405; J2543; J3010; J3490; J7060; L8514; Q9967; G0480

== ENCOUNTER → 2020-06-17 | Outpatient (CLI) | payer MEDICARE, BC | END | disposition home or self-care (01) | LOC: LAB 11:01 | PROVIDERS: ATTEND Surgery | DX: Z01.812 Encounter for preprocedural laboratory examination (principal); Z20.828 Contact with and (suspected) exposure to other viral communicable diseases; K81.0 Acute cholecystitis | CPT/HCPCS: C9803; U0003 ==

== ENCOUNTER → 2020-06-19 | Day surgery (SDC) | payer MEDICARE, BC ==
[~2020-06-19] MED LIST changes: -ACET-3161 PO; -AMLO10TA80 PO; -ATEN50TA PO; -ATOR20TA65 PO; -CHOL100044 PO; -CYAN-50 PO; -DAPA10TA PO; -GLIM4TAB36 PO; +IOHEXOL-300 50 ML BOTTLE IV ONE; +LIDOCAINE HCL 1% 20ML VIAL (Pyxis) INJ ONE; -LOSA100T32 PO; -METF-416 PO; +SODIUM BICARBONATE 4% (2.4MEQ) 5ML VIAL IV ONE
== END | disposition home or self-care (01) ==
LOC: ANGIO 08:28
PROVIDERS: ATTEND Surgery
DX: Z43.4 Encounter for attention to other artificial openings of digestive tract (principal); E78.2 Mixed hyperlipidemia; Z98.890 Other specified postprocedural states; Z87.891 Personal history of nicotine dependence
CPT/HCPCS: 47531; J3490; Q9967

== ENCOUNTER 2020-12-30 17:42 | Emergency (ER) | payer MEDICARE, BC ==
[~2020-12-30] VITALS: Ht 170.2 cm; Wt 118.0 kg
[2020-12-30] MEDS ORDERED: ACETAMINOPHEN 325MG TABLET PO ONE (18:15)
[2020-12-30] MEDS ORDERED: METHOCARBAMOL 500MG TABLET PO ONE (18:15)
[2020-12-30 20:22] LABS: BASOPHILS % 0.7 % (0.0-2.0); EOSINOPHILS % 0.2 % (0.0-5.0); HEMATOCRIT. 35.4 % (42.0-52.0); HEMOGLOBIN. 11.9 g/dL (14.0-18.0); LYMPHOCYTES % 18.1 % (20.0-50.0); MEAN CORPUSCULAR HEMOGLOBIN 29.9 pg (28.0-32.0); MEAN CORPUSCULAR VOLUME 88.9 fL (80.0-94.0); MEAN PLATELET VOLUME 7.7 fl (7.4-10.4); MONOCYTES % 11.9 % (2.0-8.0); NEUTROPHILS % 69.1 % (40.0-76.0); PLATELET 199 x1000/uL (130-400); RED BLOOD CELL COUNT 3.98 mill/uL (4.7-6.1); RED CELL DISTRIBUTION WIDTH 15.2 % (11.6-14.6)
[2020-12-30 20:28] LABS: CHLORIDE 103 mEq/L (98-107)
[2020-12-30 22:50] LABS: CLARITY URINE CLEAR (CLEAR); COLOR URINE YELLOW (YELLOW); KETONES URINE TRACE (NEGATIVE); LEUKOCYTE ESTERASE URINE TRACE (NEGATIVE); NITRITE URINE NEGATIVE (NEGATIVE); OCCULT BLOOD URINE NEGATIVE (NEGATIVE); PROTEIN URINE 1+ (NEGATIVE); SPECIFIC GRAVITY URINE 1.025 (1.005-1.030)
[2020-12-30] MEDS ORDERED: TOPUD MT (23:40)
[2020-12-30] MEDS ORDERED: METH-653 MT (23:40)
[2020-12-30] MEDS ORDERED: CEPH250C2 MT (23:40)
[2020-12-30] MEDS ORDERED: CEPHALEXIN 250MG CAPSULE PO ONE (23:45)
[2020-12-31 02:03] VITALS: BP 146/78
== END 2020-12-31 02:19 | disposition home or self-care (01) ==
LOC: ER 17:42
DX: N39.0 Urinary tract infection, site not specified (principal); E11.9 Type 2 diabetes mellitus without complications; I10 Essential (primary) hypertension; Z79.899 Other long term (current) drug therapy
CPT/HCPCS: 36415; 74176; 80053; 81003; 85025; 99285

== ENCOUNTER 2021-01-14 17:56 | Emergency (ER) | payer MEDICARE, BC ==
[~2021-01-14] VITALS: Ht 175.3 cm; Wt 100.0 kg
[~2021-01-14 17:56] MED LIST changes: +CEPH250C2 MT; -IOHEXOL-300 50 ML BOTTLE IV ONE; -LIDOCAINE HCL 1% 20ML VIAL (Pyxis) INJ ONE; +METH-653 MT; -SODIUM BICARBONATE 4% (2.4MEQ) 5ML VIAL IV ONE; +TOPUD MT
[2021-01-14] MEDS ORDERED: SODIUM CHLORIDE 0.9% 1,000 ML IV ONE (18:30)
[2021-01-14] MEDS ORDERED: INSULIN REGULAR (HUMULIN R) 300UNITS/3ML VIAL IV ONE ×2 (18:30→21:15)
[2021-01-14 19:29] LABS: HEMATOCRIT. 40.6 % (42.0-52.0); HEMOGLOBIN. 13.3 g/dL (14.0-18.0); MEAN CORPUSCULAR HEMOGLOBIN 29.2 pg (28.0-32.0); MEAN CORPUSCULAR VOLUME 89.1 fL (80.0-94.0); MEAN PLATELET VOLUME 7.7 fl (7.4-10.4); PLATELET 195 x1000/uL (130-400); RED BLOOD CELL COUNT 4.56 mill/uL (4.7-6.1); RED CELL DISTRIBUTION WIDTH 14.9 % (11.6-14.6)
[2021-01-14 19:35] LABS: CHLORIDE 102 mEq/L (98-107)
[2021-01-14 19:43] LABS: BETA HYDROXYBUTYRATE 3.1 mMol/L (0.0-0.3)
[2021-01-14 20:24] LABS: PLATELET ESTIMATE NORMAL
[2021-01-14] MEDS ORDERED: INSULIN REGULAR (HUMULIN R) UD 100 UNITS/ML SYR IV ONE (22:30)
[2021-01-14] MEDS ORDERED: INSULIN REGULAR (HUMULIN R) 300UNITS/3ML VIAL IV NR (23:15)
[2021-01-15 02:30] VITALS: BP 149/84
[2021-01-29] MEDS ORDERED: BLOO-158 HHN (19:55)
[2021-01-29] MEDS ORDERED: XAR15 PO (19:59)
[2021-01-29] MEDS ORDERED: METO25TA6 PO (20:00)
[2021-01-29] MEDS ORDERED: SPIR50TA5 PO (20:04)
[2021-01-29] MEDS ORDERED: LEVO50TA8 PO (20:05)
[2021-01-29] MEDS ORDERED: FURO20TA4 PO ×2 (20:05→20:07)
[2021-01-29] MEDS ORDERED: INSU100I26 SQ (20:08)
[2021-01-29] MEDS ORDERED: INSU100I28 SQ (20:08)
[2021-01-29] MEDS ORDERED: OLME40TA18 PO (20:10)
[2021-01-29] MEDS ORDERED: CHOL400D7 PO (20:11)
[2021-01-29] MEDS ORDERED: CYAN-50 PO (20:12)
== END 2021-01-15 03:46 | disposition short-term general hospital (02) ==
LOC: ER 19:14 → CANBEDREQ 01-15 07:36
DX: E11.65 Type 2 diabetes mellitus with hyperglycemia (principal); G93.41 Metabolic encephalopathy; R53.1 Weakness; I51.9 Heart disease, unspecified; Z79.4 Long term (current) use of insulin; Z95.0 Presence of cardiac pacemaker; Z98.890 Other specified postprocedural states
CPT/HCPCS: 36415; 70450; 71045; 80053; 82010; 82962; 84484; 85025; 93005; 96361; 96374; 96375; 99285; J1815; J7030

== ENCOUNTER 2021-04-20 20:44 | Inpatient (IN) | payer MEDICARE, BC ==
[~2021-04-20] VITALS: Ht 172.7 cm; Wt 115.2 kg
[~2021-04-20 20:44] MED LIST changes: +AMLO5TAB88 PO; +ATOR20TA PO; +BLOO-158 HHN; +CHOL400D7 PO; +CYAN-50 PO; +FURO20TA4 PO; +HYDR-4134 PO; +INSU100I26 SQ; +INSU100I28 SQ; +LEVO50TA8 PO; +METO25TA6 PO; +OLME40TA18 PO; +PANT40TA51 PO; +SPIR50TA5 PO; +XAR15 GT; +XAR15 PO
[2021-04-20 22:26] LABS: CLARITY URINE CLEAR (CLEAR); COLOR URINE YELLOW (YELLOW); KETONES URINE TRACE (NEGATIVE); LEUKOCYTE ESTERASE URINE 1+ (NEGATIVE); NITRITE URINE NEGATIVE (NEGATIVE); OCCULT BLOOD URINE NEGATIVE (NEGATIVE); PROTEIN URINE NEGATIVE (NEGATIVE); SPECIFIC GRAVITY URINE 1.035 (1.005-1.030); UROBILINOGEN URINE 0.2 E.U./dL (0.2-1.0)
[2021-04-20 22:43] LABS: HEMATOCRIT. 41.2 % (42.0-52.0); HEMOGLOBIN. 13.2 g/dL (14.0-18.0); MEAN CORPUSCULAR HEMOGLOBIN 29.1 pg (28.0-32.0); MEAN CORPUSCULAR VOLUME 90.5 fL (80.0-94.0); MEAN PLATELET VOLUME 8.6 fl (7.4-10.4); PLATELET 227 x1000/uL (130-400); RED BLOOD CELL COUNT 4.55 mill/uL (4.7-6.1); RED CELL DISTRIBUTION WIDTH 17.4 % (11.6-14.6)
[2021-04-20 22:49] LABS: *AMPHETAMINES SCREEN URINE NEGATIVE (NEGATIVE); *BARBITURATES SCREEN URINE NEGATIVE (NEGATIVE); *BENZODIAZEPINES SCREEN URINE NEGATIVE (NEGATIVE); *COCAINE SCREEN URINE NEGATIVE (NEGATIVE); CANNABINOID URINE SCREEN NEGATIVE (NEGATIVE); METHADONE URINE SCREEN NEGATIVE (NEGATIVE); PHENCYCLIDINE URINE SCREEN NEGATIVE (NEGATIVE)
[2021-04-20 22:49] LABS: CHLORIDE 102 mEq/L (98-107)
[2021-04-20 22:50] LABS: OPIATES URINE SCREEN NEGATIVE (NEGATIVE)
[2021-04-20 22:54] LABS: ETHANOL BLOOD < 10 mg/dL
[2021-04-20 22:57] LABS: LDL CHOLESTEROL 123 mg/dL (5-100)
[2021-04-20 23:07] LABS: PLATELET ESTIMATE NORMAL
[2021-04-20] MEDS ORDERED: SODIUM CHLORIDE 0.9% 1,000 ML IV ONE (23:45)
[2021-04-21] VITALS (9 sets, daily range): BP systolic 123–143; BP diastolic 65–78
[2021-04-21] MEDS ORDERED: INSULIN REGULAR (DRIP) 100 UNITS in SODIUM CHLORIDE 0.9% 99 ML IV ONE (00:30)
[2021-04-21 00:34] LABS: BG CARBOXYHEMOGLOBIN 0.7 % (0.5-1.5); BG METHEMOGLOBIN 0.3 % (0.0-1.5); BG OXYGEN SATURATION 94.9 % (92.0-98.5); BG PO2 78.3 mmHg (75.0-100.0); BG TOTAL HEMOGLOBIN 13.4 g/dL (12.0-18.0)
[2021-04-21 00:37] LABS: BG BASE EXCESS -2.9 mmol/L (-2.0-2.0); BG FRACTION INSPIRED OXYGEN 21; BG HCO3 ACT 21.8 mmol/L (22.0-26.0); BG PCO2 37.7 mmHg (35.0-45.0); BG PH 7.379 (7.350-7.450); BG SAMPLE SITE RIGHT RADIAL; BG VENT MODE ROOM AIR
[2021-04-21] MEDS ORDERED: INSULIN REGULAR (DRIP) 100 UNITS in SODIUM CHLORIDE 0.9% 99 ML IV SCH (01:00)
[2021-04-21] MEDS ORDERED: CEFTRIAXONE 1 G PREMIX 50 ML IV ONE (01:15)
[2021-04-21] MEDS ORDERED: SODIUM CHLORIDE 0.9% 1,000 ML IV ONE (01:45)
[2021-04-21] MEDS ORDERED: DEXTROSE 50% WATER 50ML SYRINGE IV PRN (05:15)
[2021-04-21] MEDS: INSULIN REGULAR HUMAN (HIGH DOSE) 100 UNITS/ML 3ML VIAL SUBCUT SCH ×4 (05:36→21:13)
[2021-04-21] MEDS: BLOOD SUGAR DIAGNOSTIC STRIP TEST SCH ×5 (05:38→21:04)
[2021-04-21] MEDS ORDERED: INSULIN GLARGINE UD 100 UNITS/ML SYR SUBCUT SCH ×2 (06:00→22:00)
[2021-04-21] MEDS ORDERED: CEFTRIAXONE 1 G PREMIX 50 ML IV SCH (16:15)
[2021-04-21] MEDS ORDERED: NALOXONE HCL 0.4MG/ML VIAL IV PRN (16:30)
[2021-04-21] MEDS ORDERED: CLONIDINE 0.1MG TABLET PO PRN (16:30)
[2021-04-21] MEDS ORDERED: ACETAMINOPHEN 325MG TABLET PO PRN ×2 (16:30)
[2021-04-21] MEDS ORDERED: HYDROCODONE/ACETAMINOPHEN 5/325MG TABLET PO PRN (16:30)
[2021-04-21] MEDS ORDERED: ONDANSETRON HCL 4MG/2ML INJ IV PRN (16:30)
[2021-04-21] MEDS ORDERED: DOCUSATE SODIUM 100MG CAPSULE PO PRN (16:30)
[2021-04-21] MEDS: SODIUM CHLORIDE 0.45% 1,000 ML IV SCH (17:09)
[2021-04-21] MEDS: ASPIRIN 81MG TABLET PO SCH (17:15)
[2021-04-21] MEDS: CEFTRIAXONE 1,000 MG in DEXTROSE 5% WATER 50 ML IV SCH ×2 (17:49→17:55)
[2021-04-21] MEDS: ENOXAPARIN 100MG/ML SYR SUBCUT SCH (18:09)
[2021-04-21] MEDS: AZITHROMYCIN 500 MG in DEXT 5% WATER 250 ML IV SCH (20:08)
[2021-04-21] MEDS: ATORVASTATIN CALCIUM 20MG TABLET PO SCH (20:24)
[2021-04-21] MEDS: INSULIN GLARGINE UD 100 UNITS/ML SYR SUBCUT SCH (21:06)
[2021-04-22] VITALS (11 sets, daily range): BP systolic 105–163; BP diastolic 49–111
[2021-04-22] MEDS: SODIUM CHLORIDE 0.45% 1,000 ML IV SCH ×2 (03:14→12:15)
[2021-04-22 05:23] LABS: PROTHROMBIN TIME 10.8 sec (9.6-11.0)
[2021-04-22] MEDS: ENOXAPARIN 100MG/ML SYR SUBCUT SCH (06:05)
[2021-04-22] MEDS: BLOOD SUGAR DIAGNOSTIC STRIP TEST SCH ×4 (07:30→21:21)
[2021-04-22] MEDS: INSULIN REGULAR HUMAN (HIGH DOSE) 100 UNITS/ML 3ML VIAL SUBCUT SCH ×4 (08:00→21:30)
[2021-04-22] MEDS: PANTOPRAZOLE 40MG DR TABLET PO SCH (09:37)
[2021-04-22] MEDS: INSULIN GLARGINE UD 100 UNITS/ML SYR SUBCUT SCH ×2 (09:39→21:32)
[2021-04-22] MEDS: ASPIRIN 81MG TABLET PO SCH (09:44)
[2021-04-22] MEDS: LEVOTHYROXINE SODIUM 50MCG TABLET PO SCH (09:45)
[2021-04-22] MEDS ORDERED: LIDOCAINE HCL 1% 20ML VIAL (Pyxis) INJ ONE (10:43)
[2021-04-22] MEDS: ENOXAPARIN 120MG/0.8ML SYR SUBCUT SCH (18:22)
[2021-04-22] MEDS: CEFTRIAXONE 1,000 MG in DEXTROSE 5% WATER 50 ML IV SCH (18:31)
[2021-04-22] MEDS: AZITHROMYCIN 500 MG in DEXT 5% WATER 250 ML IV SCH (21:19)
[2021-04-22] MEDS: ATORVASTATIN CALCIUM 20MG TABLET PO SCH (21:19)
[2021-04-23] VITALS: BP 144/96
[2021-04-23] MEDS: SODIUM CHLORIDE 0.45% 1,000 ML IV SCH ×3 (01:16→18:20)
[2021-04-23 01:58] VITALS: BP 128/80
[2021-04-23] MEDS: ENOXAPARIN 120MG/0.8ML SYR SUBCUT SCH ×2 (06:37→18:04)
[2021-04-23 07:12] LABS: CHLORIDE 104 mEq/L (98-107)
[2021-04-23] MEDS: BLOOD SUGAR DIAGNOSTIC STRIP TEST SCH ×4 (07:30→21:07)
[2021-04-23 08:20] LABS: BASOPHILS % 0.7 % (0.0-2.0); EOSINOPHILS % 1.4 % (0.0-5.0); HEMATOCRIT. 36.5 % (42.0-52.0); HEMOGLOBIN. 12.1 g/dL (14.0-18.0); LYMPHOCYTES % 39.6 % (20.0-50.0); MEAN CORPUSCULAR HEMOGLOBIN 28.8 pg (28.0-32.0); MEAN PLATELET VOLUME 8.8 fl (7.4-10.4); MONOCYTES % 14.4 % (2.0-8.0); NEUTROPHILS % 43.9 % (40.0-76.0); PLATELET 211 x1000/uL (130-400); RED BLOOD CELL COUNT 4.19 mill/uL (4.7-6.1); RED CELL DISTRIBUTION WIDTH 17.2 % (11.6-14.6)
[2021-04-23] MEDS: ASPIRIN 81MG TABLET PO SCH (08:58)
[2021-04-23] MEDS: LEVOTHYROXINE SODIUM 50MCG TABLET PO SCH (08:58)
[2021-04-23] MEDS: PANTOPRAZOLE 40MG DR TABLET PO SCH (09:15)
[2021-04-23] MEDS: INSULIN REGULAR HUMAN (HIGH DOSE) 100 UNITS/ML 3ML VIAL SUBCUT SCH ×2 (09:18→13:09)
[2021-04-23] MEDS: INSULIN GLARGINE UD 100 UNITS/ML SYR SUBCUT SCH ×2 (11:11→21:52)
[2021-04-23] MEDS ORDERED: POTASSIUM CHLORIDE INJ 40 MEQ in DEXT 5% WATER 250 ML IV NR (11:30)
[2021-04-23] MEDS: AZITHROMYCIN 500 MG in DEXT 5% WATER 250 ML IV SCH ×2 (18:05→19:38)
[2021-04-23] MEDS: CEFTRIAXONE 1,000 MG in DEXTROSE 5% WATER 50 ML IV SCH (18:05)
[2021-04-23] MEDS: INSULIN LISPRO (HIGH DOSE) 100 UNITS/ML SUBCUT SCH ×2 (18:30→21:07)
[2021-04-23] MEDS: ATORVASTATIN CALCIUM 20MG TABLET PO SCH (21:07)
[2021-04-24] MEDS: SODIUM CHLORIDE 0.45% 1,000 ML IV SCH ×2 (04:35→20:46)
[2021-04-24] MEDS: ENOXAPARIN 120MG/0.8ML SYR SUBCUT SCH (05:29)
[2021-04-24] MEDS: BLOOD SUGAR DIAGNOSTIC STRIP TEST SCH ×3 (07:30→20:46)
[2021-04-24 07:56] LABS: BASOPHILS % 0.6 % (0.0-2.0); EOSINOPHILS % 1.6 % (0.0-5.0); HEMATOCRIT. 39.6 % (42.0-52.0); HEMOGLOBIN. 13.2 g/dL (14.0-18.0); LYMPHOCYTES % 46.9 % (20.0-50.0); MEAN CORPUSCULAR HEMOGLOBIN 28.9 pg (28.0-32.0); MEAN PLATELET VOLUME 8.8 fl (7.4-10.4); MONOCYTES % 13.4 % (2.0-8.0); NEUTROPHILS % 37.5 % (40.0-76.0); PLATELET 217 x1000/uL (130-400); RED BLOOD CELL COUNT 4.56 mill/uL (4.7-6.1); RED CELL DISTRIBUTION WIDTH 17.5 % (11.6-14.6)
[2021-04-24 08:14] LABS: CHLORIDE 106 mEq/L (98-107)
[2021-04-24] MEDS: LEVOTHYROXINE SODIUM 50MCG TABLET PO SCH (08:30)
[2021-04-24] MEDS: ASPIRIN 81MG TABLET PO SCH (08:30)
[2021-04-24] MEDS: PANTOPRAZOLE 40MG DR TABLET PO SCH (08:31)
[2021-04-24] MEDS: INSULIN LISPRO (HIGH DOSE) 100 UNITS/ML SUBCUT SCH ×4 (08:32→21:41)
[2021-04-24] MEDS: INSULIN GLARGINE UD 100 UNITS/ML SYR SUBCUT SCH ×2 (10:31→21:40)
[2021-04-24] MEDS: CEFTRIAXONE 1,000 MG in DEXTROSE 5% WATER 50 ML IV SCH (18:31)
[2021-04-24] MEDS ORDERED: AZITHROMYCIN 500 MG TABLET PO SCH (20:00)
[2021-04-24] MEDS: ATORVASTATIN CALCIUM 20MG TABLET PO SCH (20:45)
[2021-04-25] MEDS: SODIUM CHLORIDE 0.45% 1,000 ML IV SCH ×3 (00:15→21:14)
[2021-04-25 06:11] LABS: CHLORIDE 106 mEq/L (98-107); HEMATOCRIT. 38.4 % (42.0-52.0); HEMOGLOBIN. 12.7 g/dL (14.0-18.0); MEAN CORPUSCULAR HEMOGLOBIN 28.7 pg (28.0-32.0); MEAN CORPUSCULAR VOLUME 87.1 fL (80.0-94.0); MEAN PLATELET VOLUME 8.8 fl (7.4-10.4); PLATELET 208 x1000/uL (130-400); RED BLOOD CELL COUNT 4.41 mill/uL (4.7-6.1); RED CELL DISTRIBUTION WIDTH 17.6 % (11.6-14.6)
[2021-04-25] MEDS: BLOOD SUGAR DIAGNOSTIC STRIP TEST SCH ×4 (07:30→21:00)
[2021-04-25] MEDS: PANTOPRAZOLE 40MG DR TABLET PO SCH (08:37)
[2021-04-25] MEDS: LEVOTHYROXINE SODIUM 50MCG TABLET PO SCH (08:37)
[2021-04-25] MEDS: INSULIN LISPRO (HIGH DOSE) 100 UNITS/ML SUBCUT SCH ×4 (08:38→21:08)
[2021-04-25] MEDS: INSULIN GLARGINE UD 100 UNITS/ML SYR SUBCUT SCH ×2 (10:00→21:10)
[2021-04-25 10:18] LABS: PLATELET ESTIMATE NORMAL
[2021-04-25 17:31] LABS: T4 FREE 1.3 ng/dL (0.76-1.46)
[2021-04-25] MEDS: ASPIRIN 81MG TABLET PO SCH (17:33)
[2021-04-25] MEDS: ENOXAPARIN 120MG/0.8ML SYR SUBCUT SCH ×2 (17:33→21:07)
[2021-04-25 17:39] LABS: FOLIC ACID (FOLATE) SERUM 9.7 ng/mL (>5.38)
[2021-04-25 20:00] VITALS: BP 135/83
[2021-04-25] MEDS: FAMOTIDINE 20MG TABLET PO SCH (21:07)
[2021-04-25] MEDS: ATORVASTATIN CALCIUM 20MG TABLET PO SCH (21:07)
[2021-04-25 22:00] VITALS: BP 143/75
[2021-04-26] VITALS (9 sets, daily range): BP systolic 126–157; BP diastolic 71–89
[2021-04-26] MEDS: BLOOD SUGAR DIAGNOSTIC STRIP TEST SCH ×4 (07:30→21:00)
[2021-04-26] MEDS: INSULIN LISPRO (HIGH DOSE) 100 UNITS/ML SUBCUT SCH ×4 (08:00→23:16)
[2021-04-26] MEDS: SODIUM CHLORIDE 0.45% 1,000 ML IV SCH ×2 (08:16→16:33)
[2021-04-26] MEDS: FAMOTIDINE 20MG TABLET PO SCH ×2 (08:17→20:17)
[2021-04-26] MEDS: LEVOTHYROXINE SODIUM 50MCG TABLET PO SCH (08:17)
[2021-04-26] MEDS: ENOXAPARIN 120MG/0.8ML SYR SUBCUT SCH ×2 (08:23→20:18)
[2021-04-26] MEDS: INSULIN GLARGINE UD 100 UNITS/ML SYR SUBCUT SCH ×3 (10:00→23:16)
[2021-04-26] MEDS: AMLODIPINE 5MG TABLET PO SCH (16:32)
[2021-04-26] MEDS: INSULIN LISPRO 100 UNITS/ML SUBCUT SCH (17:31)
[2021-04-26] MEDS: ATORVASTATIN CALCIUM 20MG TABLET PO SCH (20:17)
[2021-04-27] VITALS (7 sets, daily range): BP systolic 132–157; BP diastolic 77–88
[2021-04-27] MEDS: SODIUM CHLORIDE 0.45% 1,000 ML IV SCH ×3 (03:58→22:07)
[2021-04-27] MEDS: LEVOTHYROXINE SODIUM 50MCG TABLET PO SCH (06:36)
[2021-04-27] MEDS: INSULIN LISPRO 100 UNITS/ML SUBCUT SCH ×4 (07:30→17:44)
[2021-04-27] MEDS: BLOOD SUGAR DIAGNOSTIC STRIP TEST SCH ×4 (07:30→21:00)
[2021-04-27] MEDS: AMLODIPINE 5MG TABLET PO SCH (08:56)
[2021-04-27] MEDS: FAMOTIDINE 20MG TABLET PO SCH ×2 (08:56→21:20)
[2021-04-27] MEDS: INSULIN LISPRO (HIGH DOSE) 100 UNITS/ML SUBCUT SCH ×4 (08:57→22:10)
[2021-04-27] MEDS: INSULIN GLARGINE UD 100 UNITS/ML SYR SUBCUT SCH ×2 (11:46→22:10)
[2021-04-27] MEDS: ENOXAPARIN 120MG/0.8ML SYR SUBCUT SCH ×2 (12:03→21:00)
[2021-04-27] MEDS: ATORVASTATIN CALCIUM 20MG TABLET PO SCH (21:20)
[2021-04-28] VITALS (59 sets, daily range): BP systolic 118–160; BP diastolic 64–100
[2021-04-28] MEDS: LEVOTHYROXINE SODIUM 50MCG TABLET PO SCH (06:34)
[2021-04-28] MEDS ORDERED: LIDOCAINE HCL 1% 20ML VIAL (Pyxis) INJ ONE (07:18)
[2021-04-28] MEDS ORDERED: THROMBIN (BOVINE) 5000 UNITS/VIAL TOP ONE (07:18)
[2021-04-28] MEDS ORDERED: BACITRACIN 15GM TUBE TOP ONE (07:18)
[2021-04-28] MEDS ORDERED: HEPARIN SODIUM 1,000 UNIT/1ML VIAL IV ONE (07:19)
[2021-04-28] MEDS ORDERED: BUPIVACAINE HCL/PF 0.5% (5MG/ML) 10ML ONE (07:19)
[2021-04-28] MEDS ORDERED: POLYMYXIN B SULFATE 500000 UNITS/VIAL ONE (07:19)
[2021-04-28] MEDS: BLOOD SUGAR DIAGNOSTIC STRIP TEST SCH ×4 (07:30→20:23)
[2021-04-28 07:35] LABS: BASOPHILS % 0.5 % (0.0-2.0); EOSINOPHILS % 2.4 % (0.0-5.0); HEMATOCRIT. 37.8 % (42.0-52.0); HEMOGLOBIN. 12.2 g/dL (14.0-18.0); MEAN CORPUSCULAR HEMOGLOBIN 28.3 pg (28.0-32.0); MEAN CORPUSCULAR VOLUME 87.5 fL (80.0-94.0); MONOCYTES % 14.6 % (2.0-8.0); NEUTROPHILS % 34.5 % (40.0-76.0); PLATELET 228 x1000/uL (130-400); RED BLOOD CELL COUNT 4.32 mill/uL (4.7-6.1); RED CELL DISTRIBUTION WIDTH 17.7 % (11.6-14.6)
[2021-04-28 07:42] LABS: CHLORIDE 107 mEq/L (98-107)
[2021-04-28] MEDS ORDERED: FENTANYL CITRATE/PF 50MCG/ML 2ML VIAL ONE (07:42)
[2021-04-28] MEDS ORDERED: PROPOFOL 200MG/20ML VIAL IV ONE (07:42)
[2021-04-28] MEDS ORDERED: NICARDIPINE 50 MG in SODIUM CHLORIDE 0.9% 230 ML IV PRN (07:45)
[2021-04-28] MEDS ORDERED: MORPHINE SULFATE 4 MG/ML CPJ (NOT FOR IM USE) IV PRN (07:45)
[2021-04-28] MEDS ORDERED: ROCURONIUM BROMIDE 10MG/ML VIAL 5ML IV ONE (07:53)
[2021-04-28] MEDS ORDERED: PHENYLEPHRINE HCL 10 MG/ML 1ML (IV VIAL) IV ONE (08:11)
[2021-04-28] MEDS ORDERED: ONDANSETRON HCL 4MG/2ML INJ ONE (08:54)
[2021-04-28] MEDS ORDERED: CEFAZOLIN SODIUM 1000MG/VIAL ONE (08:54)
[2021-04-28] MEDS ORDERED: DEXAMETHASONE 4MG/ML 1ML VIAL ONE (08:54)
[2021-04-28] MEDS ORDERED: HEPARIN 1000 UNITS/ML 10ML ONE (08:54)
[2021-04-28] MEDS ORDERED: METOCLOPRAMIDE HCL 10MG/2ML VIAL ONE (08:54)
[2021-04-28] MEDS ORDERED: EPHEDRINE SULFATE 50MG/ML VIAL ONE (08:54)
[2021-04-28] MEDS ORDERED: LIDOCAINE HCL 2% JELLY 5ML ONE (08:57)
[2021-04-28] MEDS ORDERED: LIDOCAINE HCL/PF 1% 10 MG/ML 5ML VIAL ONE (08:57)
[2021-04-28] MEDS ORDERED: GLYCOPYRROLATE 0.2 MG/ML 2ML VIAL ONE (08:58)
[2021-04-28] MEDS ORDERED: NEOSTIGMINE METHYLSULFATE 1MG/ML 10 ML VIAL ONE (08:58)
[2021-04-28] MEDS ORDERED: PROTAMINE SULFATE 10MG/ML VIAL 5ML IV ONE (09:00)
[2021-04-28] MEDS: ENOXAPARIN 120MG/0.8ML SYR SUBCUT SCH ×2 (09:00→21:00)
[2021-04-28] MEDS: SODIUM CHLORIDE 0.45% 1,000 ML IV SCH ×2 (09:30→18:14)
[2021-04-28] MEDS: AMLODIPINE 5MG TABLET PO SCH ×2 (09:30→10:16)
[2021-04-28] MEDS: FAMOTIDINE 20MG TABLET PO SCH ×4 (09:30→21:36)
[2021-04-28] MEDS: INSULIN LISPRO 100 UNITS/ML SUBCUT SCH ×3 (10:23→18:14)
[2021-04-28] MEDS: INSULIN LISPRO (HIGH DOSE) 100 UNITS/ML SUBCUT SCH ×4 (10:23→21:38)
[2021-04-28] MEDS ORDERED: MORPHINE SULFATE 2 MG/ML CPJ (NOT FOR IM USE) IV PRN (10:45)
[2021-04-28] MEDS: INSULIN GLARGINE UD 100 UNITS/ML SYR SUBCUT SCH ×2 (10:59→21:37)
[2021-04-28] MEDS ORDERED: KCL 20MEQ/100ML PREMIX 100 ML IV SCH (11:00)
[2021-04-28] MEDS ORDERED: MIDODRINE HCL 5MG TABLET PO SCH (17:00)
[2021-04-28] MEDS: ATORVASTATIN CALCIUM 20MG TABLET PO SCH ×2 (21:00→21:36)
[2021-04-29] VITALS (75 sets, daily range): BP systolic 121–181; BP diastolic 55–127
[2021-04-29] MEDS: SODIUM CHLORIDE 0.45% 1,000 ML IV SCH (04:25)
[2021-04-29 05:46] LABS: CHLORIDE 102 mEq/L (98-107)
[2021-04-29 05:54] LABS: BASOPHILS % 0.3 % (0.0-2.0); EOSINOPHILS % 0.1 % (0.0-5.0); HEMATOCRIT. 31.6 % (42.0-52.0); HEMOGLOBIN. 10.5 g/dL (14.0-18.0); LYMPHOCYTES % 21.5 % (20.0-50.0); MEAN CORPUSCULAR HEMOGLOBIN 28.8 pg (28.0-32.0); MEAN CORPUSCULAR VOLUME 86.9 fL (80.0-94.0); MEAN PLATELET VOLUME 8.6 fl (7.4-10.4); MONOCYTES % 12.2 % (2.0-8.0); NEUTROPHILS % 65.9 % (40.0-76.0); PLATELET 191 x1000/uL (130-400); RED BLOOD CELL COUNT 3.64 mill/uL (4.7-6.1); RED CELL DISTRIBUTION WIDTH 17.3 % (11.6-14.6)
[2021-04-29] MEDS: LEVOTHYROXINE SODIUM 50MCG TABLET PO SCH (07:50)
[2021-04-29] MEDS: BLOOD SUGAR DIAGNOSTIC STRIP TEST SCH ×4 (07:50→21:12)
[2021-04-29] MEDS: INSULIN LISPRO 100 UNITS/ML SUBCUT SCH ×3 (08:59→17:09)
[2021-04-29] MEDS: INSULIN LISPRO (HIGH DOSE) 100 UNITS/ML SUBCUT SCH ×4 (08:59→21:00)
[2021-04-29] MEDS: AMLODIPINE 5MG TABLET PO SCH ×2 (09:00→10:40)
[2021-04-29] MEDS: FAMOTIDINE 20MG TABLET PO SCH ×3 (09:00→21:46)
[2021-04-29] MEDS: ENOXAPARIN 120MG/0.8ML SYR SUBCUT SCH (09:00)
[2021-04-29] MEDS ORDERED: MAGNESIUM 1 G PREMIX 100 ML IV SCH (09:30)
[2021-04-29] MEDS: SODIUM CHLORIDE 0.9% 1,000 ML IV SCH ×2 (10:41→23:39)
[2021-04-29] MEDS: INSULIN GLARGINE UD 100 UNITS/ML SYR SUBCUT SCH ×2 (10:48→21:47)
[2021-04-29] MEDS: ATORVASTATIN CALCIUM 20MG TABLET PO SCH (21:46)
[2021-04-30] VITALS (31 sets, daily range): BP systolic 102–150; BP diastolic 59–98
[2021-04-30] MEDS: BLOOD SUGAR DIAGNOSTIC STRIP TEST SCH ×4 (07:30→21:40)
[2021-04-30] MEDS: INSULIN LISPRO 100 UNITS/ML SUBCUT SCH ×3 (07:30→18:20)
[2021-04-30] MEDS: INSULIN LISPRO (HIGH DOSE) 100 UNITS/ML SUBCUT SCH ×4 (08:00→21:00)
[2021-04-30 08:50] LABS: BASOPHILS % 0.5 % (0.0-2.0); EOSINOPHILS % 1.4 % (0.0-5.0); LYMPHOCYTES % 28.7 % (20.0-50.0); MEAN CORPUSCULAR HEMOGLOBIN 28.9 pg (28.0-32.0); MEAN CORPUSCULAR VOLUME 87.3 fL (80.0-94.0); MEAN PLATELET VOLUME 7.9 fl (7.4-10.4); MONOCYTES % 13.1 % (2.0-8.0); NEUTROPHILS % 56.3 % (40.0-76.0); PLATELET 253 x1000/uL (130-400); RED BLOOD CELL COUNT 4.28 mill/uL (4.7-6.1); RED CELL DISTRIBUTION WIDTH 17.3 % (11.6-14.6)
[2021-04-30 08:56] LABS: CHLORIDE 107 mEq/L (98-107)
[2021-04-30 09:09] LABS: HEMATOCRIT. 37.4 % (42.0-52.0); HEMOGLOBIN. 12.4 g/dL (14.0-18.0)
[2021-04-30] MEDS: LEVOTHYROXINE SODIUM 50MCG TABLET PO SCH (09:50)
[2021-04-30] MEDS: FAMOTIDINE 20MG TABLET PO SCH ×3 (09:50→21:38)
[2021-04-30] MEDS: ENOXAPARIN 30MG/0.3ML SYR SUBCUT SCH ×2 (09:51→21:39)
[2021-04-30] MEDS: INSULIN GLARGINE UD 100 UNITS/ML SYR SUBCUT SCH ×2 (09:51→21:40)
[2021-04-30] MEDS: AMLODIPINE 5MG TABLET PO SCH (10:09)
[2021-04-30] MEDS: SODIUM CHLORIDE 0.9% 1,000 ML IV SCH (13:49)
[2021-04-30] MEDS: ATORVASTATIN CALCIUM 20MG TABLET PO SCH ×2 (21:00→21:38)
[2021-04-30] MEDS: IPRATROPIUM/ALBUTEROL 0.5-3(2.5)MG/3ML NEB HHN PRN (22:14)
[2021-05-01] VITALS (86 sets, daily range): BP systolic 36–156; BP diastolic 21–121
[2021-05-01] MEDS: SODIUM CHLORIDE 0.9% 1,000 ML IV SCH ×2 (03:13→15:32)
[2021-05-01 06:24] LABS: BASOPHILS % 0.3 % (0.0-2.0); EOSINOPHILS % 0.1 % (0.0-5.0); HEMATOCRIT. 37.2 % (42.0-52.0); HEMOGLOBIN. 12.2 g/dL (14.0-18.0); MEAN CORPUSCULAR HEMOGLOBIN 28.7 pg (28.0-32.0); MEAN PLATELET VOLUME 8.4 fl (7.4-10.4); MONOCYTES % 13.2 % (2.0-8.0); NEUTROPHILS % 76.4 % (40.0-76.0); PLATELET 240 x1000/uL (130-400); RED BLOOD CELL COUNT 4.27 mill/uL (4.7-6.1); RED CELL DISTRIBUTION WIDTH 16.9 % (11.6-14.6)
[2021-05-01 06:47] LABS: CHLORIDE 109 mEq/L (98-107)
[2021-05-01] MEDS ORDERED: MIDAZOLAM 100MG/100ML PMX 100 ML IV PRN (07:00)
[2021-05-01] MEDS ORDERED: FENTANYL CITRATE/PF 2,500 MCG in SODIUM CHLORIDE 0.9% 200 ML IV PRN (07:00)
[2021-05-01 07:31] LABS: BG BASE EXCESS -7.8 mmol/L (-2.0-2.0); BG DEOXYHEMOGLOBIN 0.5 % (0.0-5.0); BG FRACTION INSPIRED OXYGEN 100; BG HCO3 ACT 17.8 mmol/L (22.0-26.0); BG METHEMOGLOBIN 0.2 % (0.0-1.5); BG OXYGEN SATURATION 99.5 % (92.0-98.5); BG OXYHEMOGLOBIN 99.3 % (94.0-97.0); BG PCO2 36.7 mmHg (35.0-45.0); BG PH 7.303 (7.350-7.450); BG PO2 391.3 mmHg (75.0-100.0); BG SAMPLE SITE LEFT RADIAL; BG TOTAL HEMOGLOBIN 12.3 g/dL (12.0-18.0); BG VENT MODE VENT - AC
[2021-05-01] MEDS ORDERED: NALOXONE HCL 0.4MG/ML VIAL IV PRN (07:45)
[2021-05-01] MEDS: NOREPINEPHRINE 8 MG in DEXT 5% WATER 242 ML IV PRN ×2 (07:54→17:49)
[2021-05-01] MEDS: BLOOD SUGAR DIAGNOSTIC STRIP TEST SCH ×4 (08:42→21:56)
[2021-05-01] MEDS: MIDAZOLAM HCL 100 MG in SODIUM CHLORIDE 0.9% 100 ML IV PRN ×2 (09:00→21:56)
[2021-05-01] MEDS: AMLODIPINE 5MG TABLET PO SCH (09:00)
[2021-05-01] MEDS: LEVOTHYROXINE SODIUM 50MCG TABLET PO SCH (09:32)
[2021-05-01] MEDS: FAMOTIDINE 20MG TABLET PO SCH ×2 (09:32→20:48)
[2021-05-01] MEDS: ENOXAPARIN 30MG/0.3ML SYR SUBCUT SCH ×2 (09:33→21:55)
[2021-05-01] MEDS: INSULIN LISPRO 100 UNITS/ML SUBCUT SCH ×3 (09:55→17:29)
[2021-05-01] MEDS: INSULIN LISPRO (HIGH DOSE) 100 UNITS/ML SUBCUT SCH ×4 (09:56→21:00)
[2021-05-01] MEDS ORDERED: PHENYLEPHRINE 100 MG in DEXT 5% WATER 240 ML IV PRN (10:00)
[2021-05-01] MEDS: INSULIN GLARGINE UD 100 UNITS/ML SYR SUBCUT SCH ×2 (10:08→21:56)
[2021-05-01] MEDS: LEVETIRACETAM 500MG PREMIX 100 ML IV SCH ×2 (11:52→20:49)
[2021-05-01] MEDS ORDERED: EPINEPHRINE 0.1MG/ML (1:10,000) 10ML SYR ONE (14:51)
[2021-05-01] MEDS ORDERED: CALCIUM CHLORIDE 1GM/10ML SYR IV ONE (14:51)
[2021-05-01] MEDS ORDERED: LORAZEPAM 2MG/ML CPJ IV SCH (15:00)
[2021-05-01] MEDS: LORAZEPAM 2MG/ML CPJ IV PRN ×2 (15:29→17:27)
[2021-05-01] MEDS: ATORVASTATIN CALCIUM 20MG TABLET PO SCH (20:48)
[2021-05-02] VITALS (91 sets, daily range): BP systolic 91–162; BP diastolic 21–101
[2021-05-02] MEDS ORDERED: LORAZEPAM 2MG/ML CPJ IV PRN (02:15)
[2021-05-02] MEDS: SODIUM CHLORIDE 0.9% 1,000 ML IV SCH (05:31)
[2021-05-02] MEDS: NOREPINEPHRINE 8 MG in DEXT 5% WATER 242 ML IV PRN (05:35)
[2021-05-02 06:27] LABS: BASOPHILS % 0.4 % (0.0-2.0); EOSINOPHILS % 0.2 % (0.0-5.0); HEMOGLOBIN. 10.8 g/dL (14.0-18.0); LYMPHOCYTES % 20.5 % (20.0-50.0); MEAN CORPUSCULAR HEMOGLOBIN 28.7 pg (28.0-32.0); MEAN CORPUSCULAR VOLUME 85.4 fL (80.0-94.0); MEAN PLATELET VOLUME 7.7 fl (7.4-10.4); MONOCYTES % 12.8 % (2.0-8.0); NEUTROPHILS % 66.1 % (40.0-76.0); PLATELET 199 x1000/uL (130-400); RED BLOOD CELL COUNT 3.75 mill/uL (4.7-6.1); RED CELL DISTRIBUTION WIDTH 16.9 % (11.6-14.6)
[2021-05-02] MEDS: IPRATROPIUM/ALBUTEROL 0.5-3(2.5)MG/3ML NEB HHN PRN (07:18)
[2021-05-02] MEDS: INSULIN LISPRO 100 UNITS/ML SUBCUT SCH ×3 (07:50→17:46)
[2021-05-02 08:08] LABS: BG CARBOXYHEMOGLOBIN 0.4 % (0.5-1.5); BG DEOXYHEMOGLOBIN 1.9 % (0.0-5.0); BG FRACTION INSPIRED OXYGEN 30; BG HCO3 ACT 20.2 mmol/L (22.0-26.0); BG METHEMOGLOBIN 0.3 % (0.0-1.5); BG OXYGEN SATURATION 98.1 % (92.0-98.5); BG OXYHEMOGLOBIN 97.4 % (94.0-97.0); BG PCO2 23.9 mmHg (35.0-45.0); BG PH 7.544 (7.350-7.450); BG PO2 98.4 mmHg (75.0-100.0); BG SAMPLE SITE RIGHT RADIAL; BG TOTAL HEMOGLOBIN 11.6 g/dL (12.0-18.0); BG TOTAL RESPIRATORY RATE 20 b/min; BG VENT MODE VENT - AC
[2021-05-02] MEDS: INSULIN LISPRO (HIGH DOSE) 100 UNITS/ML SUBCUT SCH ×4 (08:20→22:00)
[2021-05-02] MEDS: BLOOD SUGAR DIAGNOSTIC STRIP TEST SCH ×4 (08:44→21:00)
[2021-05-02] MEDS: AMLODIPINE 5MG TABLET PO SCH (09:00)
[2021-05-02] MEDS: LEVOTHYROXINE SODIUM 50MCG TABLET PO SCH (09:24)
[2021-05-02] MEDS: ENOXAPARIN 30MG/0.3ML SYR SUBCUT SCH (09:24)
[2021-05-02] MEDS: FAMOTIDINE 20MG TABLET PO SCH (09:24)
[2021-05-02] MEDS: LEVETIRACETAM 500MG PREMIX 100 ML IV SCH ×2 (09:38→21:59)
[2021-05-02] MEDS: DEXT 5%/0.9% NACL 1,000 ML IV SCH (11:43)
[2021-05-02] MEDS: INSULIN GLARGINE UD 100 UNITS/ML SYR SUBCUT SCH ×2 (11:44→22:20)
[2021-05-02] MEDS: MIDAZOLAM HCL 100 MG in SODIUM CHLORIDE 0.9% 100 ML IV PRN (13:11)
[2021-05-02] MEDS ORDERED: POTASSIUM CHLORIDE 20MEQ/PACKET PO NR (13:45)
[2021-05-02] MEDS: METOCLOPRAMIDE HCL 10MG/2ML VIAL IV SCH (18:27)
[2021-05-02] MEDS ORDERED: CEFEPIME 2,000 MG in DEXT 5% WATER 100 ML IV SCH (18:30)
[2021-05-02] MEDS: CEFEPIME 2,000 MG in DEXT 5% WATER 100 ML IV SCH (19:46)
[2021-05-02] MEDS ORDERED: KCL 20MEQ/100ML PREMIX 100 ML IV SCH (20:00)
[2021-05-02] MEDS: ATORVASTATIN CALCIUM 20MG TABLET PO SCH (21:59)
[2021-05-03] VITALS (91 sets, daily range): BP systolic 80–152; BP diastolic 47–89
[2021-05-03] MEDS: METOCLOPRAMIDE HCL 10MG/2ML VIAL IV SCH ×4 (01:13→17:48)
[2021-05-03] MEDS: DEXT 5%/0.9% NACL 1,000 ML IV SCH ×2 (01:13→12:36)
[2021-05-03] MEDS: CEFEPIME 2,000 MG in DEXT 5% WATER 100 ML IV SCH ×2 (05:09→17:48)
[2021-05-03] MEDS: FAMOTIDINE 20MG TABLET PO SCH (08:12)
[2021-05-03] MEDS: LEVOTHYROXINE SODIUM 50MCG TABLET PO SCH (08:13)
[2021-05-03] MEDS: BLOOD SUGAR DIAGNOSTIC STRIP TEST SCH ×4 (08:13→20:39)
[2021-05-03] MEDS: LEVETIRACETAM 500MG PREMIX 100 ML IV SCH ×2 (08:14→20:46)
[2021-05-03] MEDS: INSULIN LISPRO 100 UNITS/ML SUBCUT SCH ×3 (08:21→17:50)
[2021-05-03] MEDS: AMLODIPINE 5MG TABLET PO SCH (08:22)
[2021-05-03] MEDS: INSULIN LISPRO (HIGH DOSE) 100 UNITS/ML SUBCUT SCH ×4 (08:22→20:47)
[2021-05-03 09:22] LABS: BG BASE EXCESS -3.4 mmol/L (-2.0-2.0); BG CARBOXYHEMOGLOBIN 0.2 % (0.5-1.5); BG DEOXYHEMOGLOBIN 1.2 % (0.0-5.0); BG FRACTION INSPIRED OXYGEN 40; BG HCO3 ACT 21.7 mmol/L (22.0-26.0); BG METHEMOGLOBIN 0.3 % (0.0-1.5); BG OXYGEN SATURATION 98.8 % (92.0-98.5); BG OXYHEMOGLOBIN 98.3 % (94.0-97.0); BG PH 7.363 (7.350-7.450); BG PO2 146.3 mmHg (75.0-100.0); BG SAMPLE SITE LEFT RADIAL; BG TOTAL HEMOGLOBIN 11.6 g/dL (12.0-18.0); BG VENT MODE VENT - AC
[2021-05-03] MEDS: SODIUM CHLORIDE 0.9% 500 ML IV NR ×2 (09:53→12:45)
[2021-05-03 09:54] LABS: BASOPHILS % 0.2 % (0.0-2.0); EOSINOPHILS % 1.9 % (0.0-5.0); HEMATOCRIT. 32.3 % (42.0-52.0); HEMOGLOBIN. 10.5 g/dL (14.0-18.0); MEAN CORPUSCULAR HEMOGLOBIN 28.8 pg (28.0-32.0); MEAN CORPUSCULAR VOLUME 89.2 fL (80.0-94.0); MEAN PLATELET VOLUME 7.8 fl (7.4-10.4); MONOCYTES % 9.6 % (2.0-8.0); NEUTROPHILS % 76.3 % (40.0-76.0); PLATELET 170 x1000/uL (130-400); RED BLOOD CELL COUNT 3.63 mill/uL (4.7-6.1)
[2021-05-03 09:56] LABS: CHLORIDE 112 mEq/L (98-107)
[2021-05-03] MEDS: INSULIN GLARGINE UD 100 UNITS/ML SYR SUBCUT SCH ×2 (09:57→22:46)
[2021-05-03] MEDS: IPRATROPIUM/ALBUTEROL 0.5-3(2.5)MG/3ML NEB HHN PRN (20:19)
[2021-05-03] MEDS: ATORVASTATIN CALCIUM 20MG TABLET PO SCH (20:46)
[2021-05-04] VITALS (95 sets, daily range): BP systolic 103–154; BP diastolic 50–83
[2021-05-04] MEDS: METOCLOPRAMIDE HCL 10MG/2ML VIAL IV SCH ×4 (00:09→17:57)
[2021-05-04] MEDS: DEXT 5%/0.9% NACL 1,000 ML IV SCH ×2 (02:23→17:58)
[2021-05-04] MEDS: CEFEPIME 2,000 MG in DEXT 5% WATER 100 ML IV SCH ×2 (05:21→17:58)
[2021-05-04] MEDS: BLOOD SUGAR DIAGNOSTIC STRIP TEST SCH ×4 (07:55→20:44)
[2021-05-04] MEDS: FAMOTIDINE 20MG TABLET PO SCH (08:13)
[2021-05-04] MEDS: LEVETIRACETAM 500MG PREMIX 100 ML IV SCH ×2 (08:13→20:44)
[2021-05-04] MEDS: LEVOTHYROXINE SODIUM 50MCG TABLET PO SCH (08:13)
[2021-05-04] MEDS: INSULIN LISPRO 100 UNITS/ML SUBCUT SCH ×3 (08:14→17:59)
[2021-05-04] MEDS: INSULIN LISPRO (HIGH DOSE) 100 UNITS/ML SUBCUT SCH ×4 (08:15→20:45)
[2021-05-04] MEDS: AMLODIPINE 5MG TABLET PO SCH (09:00)
[2021-05-04 09:30] LABS: BG BASE EXCESS -2.9 mmol/L (-2.0-2.0); BG CARBOXYHEMOGLOBIN 0.3 % (0.5-1.5); BG DEOXYHEMOGLOBIN 1.1 % (0.0-5.0); BG FRACTION INSPIRED OXYGEN 40; BG HCO3 ACT 20.8 mmol/L (22.0-26.0); BG METHEMOGLOBIN 0.2 % (0.0-1.5); BG OXYGEN SATURATION 98.9 % (92.0-98.5); BG OXYHEMOGLOBIN 98.4 % (94.0-97.0); BG PCO2 32.8 mmHg (35.0-45.0); BG PO2 131.5 mmHg (75.0-100.0); BG SAMPLE SITE LEFT RADIAL; BG TOTAL HEMOGLOBIN 11.8 g/dL (12.0-18.0); BG VENT MODE VENT - AC
[2021-05-04] MEDS: INSULIN GLARGINE UD 100 UNITS/ML SYR SUBCUT SCH ×2 (10:23→21:54)
[2021-05-04 11:24] LABS: BASOPHILS % 0.1 % (0.0-2.0); EOSINOPHILS % 1.5 % (0.0-5.0); HEMATOCRIT. 32.2 % (42.0-52.0); HEMOGLOBIN. 10.3 g/dL (14.0-18.0); LYMPHOCYTES % 10.1 % (20.0-50.0); MEAN CORPUSCULAR HEMOGLOBIN 28.1 pg (28.0-32.0); MEAN CORPUSCULAR VOLUME 88.2 fL (80.0-94.0); MEAN PLATELET VOLUME 8.3 fl (7.4-10.4); MONOCYTES % 9.3 % (2.0-8.0); PLATELET 163 x1000/uL (130-400); RED BLOOD CELL COUNT 3.65 mill/uL (4.7-6.1); RED CELL DISTRIBUTION WIDTH 17.9 % (11.6-14.6)
[2021-05-04 11:28] LABS: CHLORIDE 114 mEq/L (98-107)
[2021-05-04] MEDS: ATORVASTATIN CALCIUM 20MG TABLET PO SCH (20:44)
[2021-05-05] VITALS (95 sets, daily range): BP systolic 110–175; BP diastolic 59–148
[2021-05-05] MEDS: METOCLOPRAMIDE HCL 10MG/2ML VIAL IV SCH ×5 (00:09→23:08)
[2021-05-05 05:47] LABS: BASOPHILS % 0.3 % (0.0-2.0); HEMATOCRIT. 31.5 % (42.0-52.0); HEMOGLOBIN. 10.4 g/dL (14.0-18.0); LYMPHOCYTES % 16.1 % (20.0-50.0); MEAN CORPUSCULAR HEMOGLOBIN 29.1 pg (28.0-32.0); MEAN CORPUSCULAR VOLUME 88.3 fL (80.0-94.0); MEAN PLATELET VOLUME 8.3 fl (7.4-10.4); MONOCYTES % 11.4 % (2.0-8.0); NEUTROPHILS % 69.2 % (40.0-76.0); PLATELET 157 x1000/uL (130-400); RED BLOOD CELL COUNT 3.56 mill/uL (4.7-6.1); RED CELL DISTRIBUTION WIDTH 17.8 % (11.6-14.6)
[2021-05-05] MEDS: CEFEPIME 2,000 MG in DEXT 5% WATER 100 ML IV SCH ×2 (06:09→17:43)
[2021-05-05] MEDS: DEXT 5%/0.9% NACL 1,000 ML IV SCH ×2 (06:34→17:51)
[2021-05-05 06:50] LABS: CHLORIDE 113 mEq/L (98-107)
[2021-05-05] MEDS: BLOOD SUGAR DIAGNOSTIC STRIP TEST SCH ×4 (07:55→21:00)
[2021-05-05] MEDS: LEVOTHYROXINE SODIUM 50MCG TABLET PO SCH (08:16)
[2021-05-05] MEDS: INSULIN LISPRO 100 UNITS/ML SUBCUT SCH ×3 (08:17→17:43)
[2021-05-05] MEDS: LEVETIRACETAM 500MG PREMIX 100 ML IV SCH ×2 (08:17→20:38)
[2021-05-05] MEDS: FAMOTIDINE 20MG TABLET PO SCH (08:17)
[2021-05-05] MEDS: INSULIN LISPRO (HIGH DOSE) 100 UNITS/ML SUBCUT SCH ×4 (08:18→20:39)
[2021-05-05 08:54] LABS: BG BASE EXCESS -2.5 mmol/L (-2.0-2.0); BG CARBOXYHEMOGLOBIN 0.3 % (0.5-1.5); BG DEOXYHEMOGLOBIN 2.1 % (0.0-5.0); BG FRACTION INSPIRED OXYGEN 30; BG HCO3 ACT 21.5 mmol/L (22.0-26.0); BG METHEMOGLOBIN 0.3 % (0.0-1.5); BG OXYGEN SATURATION 97.9 % (92.0-98.5); BG OXYHEMOGLOBIN 97.3 % (94.0-97.0); BG PCO2 34.1 mmHg (35.0-45.0); BG PH 7.417 (7.350-7.450); BG PO2 105.7 mmHg (75.0-100.0); BG SAMPLE SITE RIGHT RADIAL; BG TOTAL HEMOGLOBIN 10.7 g/dL (12.0-18.0); BG VENT MODE VENT - AC
[2021-05-05] MEDS: IPRATROPIUM/ALBUTEROL 0.5-3(2.5)MG/3ML NEB HHN PRN (09:09)
[2021-05-05] MEDS: INSULIN GLARGINE UD 100 UNITS/ML SYR SUBCUT SCH ×2 (11:34→22:49)
[2021-05-05] MEDS: ACETYLCYSTEINE 100MG/ML 10% VIAL 4ML INH SCH (16:24)
[2021-05-05] MEDS: IPRATROPIUM/ALBUTEROL 0.5-3(2.5)MG/3ML NEB HHN SCH ×2 (16:25→20:12)
[2021-05-05] MEDS: ATORVASTATIN CALCIUM 20MG TABLET PO SCH (20:38)
[2021-05-06] VITALS (93 sets, daily range): BP systolic 105–158; BP diastolic 54–94
[2021-05-06] MEDS: IPRATROPIUM/ALBUTEROL 0.5-3(2.5)MG/3ML NEB HHN SCH ×6 (00:49→20:14)
[2021-05-06] MEDS: ACETYLCYSTEINE 100MG/ML 10% VIAL 4ML INH SCH ×3 (00:49→16:05)
[2021-05-06] MEDS: METOCLOPRAMIDE HCL 10MG/2ML VIAL IV SCH ×3 (05:47→17:55)
[2021-05-06] MEDS: CEFEPIME 2,000 MG in DEXT 5% WATER 100 ML IV SCH ×2 (05:47→17:55)
[2021-05-06] MEDS: INSULIN LISPRO 100 UNITS/ML SUBCUT SCH (07:50)
[2021-05-06] MEDS: BLOOD SUGAR DIAGNOSTIC STRIP TEST SCH ×4 (08:13→20:39)
[2021-05-06] MEDS: FAMOTIDINE 20MG TABLET PO SCH (08:21)
[2021-05-06] MEDS: LEVOTHYROXINE SODIUM 50MCG TABLET PO SCH (08:21)
[2021-05-06] MEDS: LEVETIRACETAM 500MG PREMIX 100 ML IV SCH ×2 (08:21→20:32)
[2021-05-06] MEDS: INSULIN LISPRO (HIGH DOSE) 100 UNITS/ML SUBCUT SCH ×4 (08:22→20:39)
[2021-05-06] MEDS: POLYETHYLENE GLYCOL 3350 (17GM) 1 DOSE PACK PO SCH (09:41)
[2021-05-06] MEDS: INSULIN GLARGINE UD 100 UNITS/ML SYR SUBCUT SCH ×2 (09:42→22:20)
[2021-05-06] MEDS: ATORVASTATIN CALCIUM 20MG TABLET PO SCH (20:32)
[2021-05-07] VITALS (86 sets, daily range): BP systolic 105–183; BP diastolic 55–91
[2021-05-07] MEDS: IPRATROPIUM/ALBUTEROL 0.5-3(2.5)MG/3ML NEB HHN SCH ×6 (00:09→20:16)
[2021-05-07] MEDS: ACETYLCYSTEINE 100MG/ML 10% VIAL 4ML INH SCH ×3 (00:10→16:22)
[2021-05-07] MEDS: METOCLOPRAMIDE HCL 10MG/2ML VIAL IV SCH ×4 (05:47→23:48)
[2021-05-07] MEDS: CEFEPIME 2,000 MG in DEXT 5% WATER 100 ML IV SCH ×2 (05:47→19:32)
[2021-05-07 06:29] LABS: BASOPHILS % 0.2 % (0.0-2.0); EOSINOPHILS % 1.5 % (0.0-5.0); HEMATOCRIT. 30.5 % (42.0-52.0); HEMOGLOBIN. 9.8 g/dL (14.0-18.0); MEAN CORPUSCULAR HEMOGLOBIN 28.3 pg (28.0-32.0); MEAN PLATELET VOLUME 8.5 fl (7.4-10.4); NEUTROPHILS % 70.3 % (40.0-76.0); PLATELET 150 x1000/uL (130-400); RED BLOOD CELL COUNT 3.47 mill/uL (4.7-6.1); RED CELL DISTRIBUTION WIDTH 18.2 % (11.6-14.6)
[2021-05-07 06:44] LABS: CHLORIDE 113 mEq/L (98-107)
[2021-05-07] MEDS: BLOOD SUGAR DIAGNOSTIC STRIP TEST SCH ×4 (07:50→21:00)
[2021-05-07] MEDS: INSULIN LISPRO (HIGH DOSE) 100 UNITS/ML SUBCUT SCH ×4 (08:00→22:45)
[2021-05-07] MEDS: LEVOTHYROXINE SODIUM 50MCG TABLET PO SCH (09:11)
[2021-05-07] MEDS: FAMOTIDINE 20MG TABLET PO SCH (09:11)
[2021-05-07] MEDS: LEVETIRACETAM 500MG PREMIX 100 ML IV SCH ×2 (09:11→21:25)
[2021-05-07] MEDS: POLYETHYLENE GLYCOL 3350 (17GM) 1 DOSE PACK PO SCH (09:11)
[2021-05-07] MEDS: INSULIN GLARGINE UD 100 UNITS/ML SYR SUBCUT SCH ×2 (09:13→21:32)
[2021-05-07 09:37] LABS: BG BASE EXCESS -0.3 mmol/L (-2.0-2.0); BG CARBOXYHEMOGLOBIN 0.6 % (0.5-1.5); BG DEOXYHEMOGLOBIN 2.4 % (0.0-5.0); BG FRACTION INSPIRED OXYGEN 30; BG HCO3 ACT 24.5 mmol/L (22.0-26.0); BG METHEMOGLOBIN 0.3 % (0.0-1.5); BG OXYGEN SATURATION 97.6 % (92.0-98.5); BG OXYHEMOGLOBIN 96.7 % (94.0-97.0); BG PCO2 40.5 mmHg (35.0-45.0); BG PH 7.399 (7.350-7.450); BG PO2 94.7 mmHg (75.0-100.0); BG SAMPLE SITE LEFT RADIAL; BG TOTAL HEMOGLOBIN 10.8 g/dL (12.0-18.0); BG TOTAL RESPIRATORY RATE 15 b/min; BG VENT MODE VENT - AC
[2021-05-07] MEDS: ATORVASTATIN CALCIUM 20MG TABLET PO SCH (21:25)
[2021-05-08] VITALS (89 sets, daily range): BP systolic 87–139; BP diastolic 51–89
[2021-05-08] MEDS: ACETYLCYSTEINE 100MG/ML 10% VIAL 4ML INH SCH ×3 (00:22→15:11)
[2021-05-08] MEDS: IPRATROPIUM/ALBUTEROL 0.5-3(2.5)MG/3ML NEB HHN SCH ×6 (00:22→20:11)
[2021-05-08 05:39] LABS: BASOPHILS % 0.3 % (0.0-2.0); EOSINOPHILS % 2.1 % (0.0-5.0); HEMATOCRIT. 29.6 % (42.0-52.0); HEMOGLOBIN. 9.7 g/dL (14.0-18.0); LYMPHOCYTES % 17.3 % (20.0-50.0); MEAN CORPUSCULAR HEMOGLOBIN 28.9 pg (28.0-32.0); MEAN CORPUSCULAR VOLUME 88.2 fL (80.0-94.0); MEAN PLATELET VOLUME 8.3 fl (7.4-10.4); MONOCYTES % 12.1 % (2.0-8.0); NEUTROPHILS % 68.2 % (40.0-76.0); PLATELET 153 x1000/uL (130-400); RED BLOOD CELL COUNT 3.35 mill/uL (4.7-6.1); RED CELL DISTRIBUTION WIDTH 18.2 % (11.6-14.6)
[2021-05-08 05:46] LABS: CHLORIDE 114 mEq/L (98-107)
[2021-05-08] MEDS: INSULIN LISPRO 100 UNITS/ML SUBCUT SCH ×4 (06:00→17:27)
[2021-05-08] MEDS: BLOOD SUGAR DIAGNOSTIC STRIP TEST SCH ×4 (06:34→17:27)
[2021-05-08] MEDS: METOCLOPRAMIDE HCL 10MG/2ML VIAL IV SCH ×3 (06:35→17:40)
[2021-05-08] MEDS: LEVETIRACETAM 500MG PREMIX 100 ML IV SCH ×2 (08:11→21:46)
[2021-05-08] MEDS: POLYETHYLENE GLYCOL 3350 (17GM) 1 DOSE PACK PO SCH (08:11)
[2021-05-08] MEDS: FAMOTIDINE 20MG TABLET PO SCH (08:11)
[2021-05-08] MEDS: LEVOTHYROXINE SODIUM 50MCG TABLET PO SCH (08:11)
[2021-05-08] MEDS: INSULIN GLARGINE UD 100 UNITS/ML SYR SUBCUT SCH ×2 (10:49→21:47)
[2021-05-08] MEDS: ATORVASTATIN CALCIUM 20MG TABLET PO SCH (21:46)
[2021-05-09] VITALS (72 sets, daily range): BP systolic 88–146; BP diastolic 47–87
[2021-05-09] MEDS: IPRATROPIUM/ALBUTEROL 0.5-3(2.5)MG/3ML NEB HHN SCH ×5 (00:12→19:51)
[2021-05-09] MEDS: ACETYLCYSTEINE 100MG/ML 10% VIAL 4ML INH SCH ×3 (00:12→15:08)
[2021-05-09] MEDS: BLOOD SUGAR DIAGNOSTIC STRIP TEST SCH ×5 (00:20→23:59)
[2021-05-09] MEDS: METOCLOPRAMIDE HCL 10MG/2ML VIAL IV SCH ×4 (00:24→17:43)
[2021-05-09] MEDS: INSULIN LISPRO 100 UNITS/ML SUBCUT SCH ×5 (05:53→23:58)
[2021-05-09 07:31] LABS: BASOPHILS % 0.6 % (0.0-2.0); EOSINOPHILS % 2.4 % (0.0-5.0); HEMATOCRIT. 28.8 % (42.0-52.0); HEMOGLOBIN. 9.7 g/dL (14.0-18.0); LYMPHOCYTES % 19.8 % (20.0-50.0); MEAN CORPUSCULAR HEMOGLOBIN 28.9 pg (28.0-32.0); MEAN CORPUSCULAR VOLUME 86.4 fL (80.0-94.0); MEAN PLATELET VOLUME 8.1 fl (7.4-10.4); MONOCYTES % 10.1 % (2.0-8.0); NEUTROPHILS % 67.1 % (40.0-76.0); PLATELET 160 x1000/uL (130-400); RED BLOOD CELL COUNT 3.34 mill/uL (4.7-6.1); RED CELL DISTRIBUTION WIDTH 17.7 % (11.6-14.6)
[2021-05-09] MEDS: LEVOTHYROXINE SODIUM 50MCG TABLET PO SCH (07:50)
[2021-05-09 07:55] LABS: CHLORIDE 113 mEq/L (98-107)
[2021-05-09] MEDS: POLYETHYLENE GLYCOL 3350 (17GM) 1 DOSE PACK PO SCH (08:14)
[2021-05-09] MEDS: FAMOTIDINE 20MG TABLET PO SCH (08:14)
[2021-05-09] MEDS: LEVETIRACETAM 500MG PREMIX 100 ML IV SCH ×2 (08:30→22:56)
[2021-05-09] MEDS ORDERED: LIDOCAINE HCL/EPINEPHRINE 1%-EPI 1:100,000 20 ML VIAL ONE (08:36)
[2021-05-09 09:02] LABS: BG BASE EXCESS -0.1 mmol/L (-2.0-2.0); BG CARBOXYHEMOGLOBIN 0.5 % (0.5-1.5); BG DEOXYHEMOGLOBIN 3.3 % (0.0-5.0); BG FRACTION INSPIRED OXYGEN 30; BG HCO3 ACT 22.9 mmol/L (22.0-26.0); BG METHEMOGLOBIN 0.3 % (0.0-1.5); BG OXYGEN SATURATION 96.7 % (92.0-98.5); BG OXYHEMOGLOBIN 95.9 % (94.0-97.0); BG PCO2 31.2 mmHg (35.0-45.0); BG PH 7.484 (7.350-7.450); BG PO2 83.6 mmHg (75.0-100.0); BG SAMPLE SITE RIGHT RADIAL; BG TOTAL HEMOGLOBIN 9.5 g/dL (12.0-18.0); BG VENT MODE VENT - AC
[2021-05-09] MEDS: INSULIN GLARGINE UD 100 UNITS/ML SYR SUBCUT SCH ×2 (10:43→23:02)
[2021-05-09] MEDS ORDERED: ROCURONIUM BROMIDE 10MG/ML VIAL 5ML IV ONE (12:15)
[2021-05-09] MEDS ORDERED: EPHEDRINE SULFATE 50MG/ML VIAL ONE (12:19)
[2021-05-09] MEDS ORDERED: MORPHINE SULFATE 2 MG/ML CPJ (NOT FOR IM USE) IV PRN (12:30)
[2021-05-09] MEDS ORDERED: LORAZEPAM 2MG/ML CPJ IV PRN (12:30)
[2021-05-09] MEDS ORDERED: NALOXONE HCL 0.4MG/ML VIAL IV PRN (12:30)
[2021-05-09] MEDS: DEXT 5%/0.45% NACL 1000ML 1,000 ML IV SCH (17:44)
[2021-05-09] MEDS: ATORVASTATIN CALCIUM 20MG TABLET PO SCH (22:28)
[2021-05-10] VITALS (29 sets, daily range): BP systolic 83–135; BP diastolic 48–79
[2021-05-10] MEDS: METOCLOPRAMIDE HCL 10MG/2ML VIAL IV SCH ×5 (00:11→23:45)
[2021-05-10] MEDS: IPRATROPIUM/ALBUTEROL 0.5-3(2.5)MG/3ML NEB HHN SCH ×6 (04:04→20:16)
[2021-05-10] MEDS: INSULIN LISPRO 100 UNITS/ML SUBCUT SCH ×4 (05:47→23:46)
[2021-05-10] MEDS: BLOOD SUGAR DIAGNOSTIC STRIP TEST SCH ×4 (05:47→23:45)
[2021-05-10 06:06] LABS: BASOPHILS % 0.3 % (0.0-2.0); EOSINOPHILS % 2.4 % (0.0-5.0); HEMATOCRIT. 32.4 % (42.0-52.0); HEMOGLOBIN. 10.5 g/dL (14.0-18.0); LYMPHOCYTES % 20.8 % (20.0-50.0); MEAN CORPUSCULAR HEMOGLOBIN 28.4 pg (28.0-32.0); MEAN CORPUSCULAR VOLUME 87.9 fL (80.0-94.0); MEAN PLATELET VOLUME 8.5 fl (7.4-10.4); MONOCYTES % 9.8 % (2.0-8.0); NEUTROPHILS % 66.7 % (40.0-76.0); PLATELET 165 x1000/uL (130-400); RED BLOOD CELL COUNT 3.69 mill/uL (4.7-6.1); RED CELL DISTRIBUTION WIDTH 17.7 % (11.6-14.6)
[2021-05-10 06:10] LABS: PROTHROMBIN TIME 10.9 sec (9.6-11.0)
[2021-05-10 06:43] LABS: CHLORIDE 111 mEq/L (98-107)
[2021-05-10] MEDS: ACETYLCYSTEINE 100MG/ML 10% VIAL 4ML INH SCH (08:20)
[2021-05-10 08:24] LABS: HEPATITIS B SURFACE ANTIGEN NEGATIVE
[2021-05-10] MEDS: LEVOTHYROXINE SODIUM 50MCG TABLET PO SCH (08:58)
[2021-05-10] MEDS: FAMOTIDINE 20MG TABLET PO SCH (08:58)
[2021-05-10] MEDS: POLYETHYLENE GLYCOL 3350 (17GM) 1 DOSE PACK PO SCH (08:58)
[2021-05-10] MEDS: LEVETIRACETAM 500MG PREMIX 100 ML IV SCH ×2 (09:14→21:52)
[2021-05-10] MEDS: DEXT 5%/0.45% NACL 1000ML 1,000 ML IV SCH ×3 (09:18→23:45)
[2021-05-10] MEDS: INSULIN GLARGINE UD 100 UNITS/ML SYR SUBCUT SCH ×2 (10:00→21:58)
[2021-05-10 10:32] LABS: BG BASE EXCESS 1.3 mmol/L (-2.0-2.0); BG CARBOXYHEMOGLOBIN 0.3 % (0.5-1.5); BG DEOXYHEMOGLOBIN 1.1 % (0.0-5.0); BG FRACTION INSPIRED OXYGEN 85; BG HCO3 ACT 25.3 mmol/L (22.0-26.0); BG METHEMOGLOBIN 0.2 % (0.0-1.5); BG OXYGEN SATURATION 98.9 % (92.0-98.5); BG OXYHEMOGLOBIN 98.4 % (94.0-97.0); BG PH 7.442 (7.350-7.450); BG PO2 150.4 mmHg (75.0-100.0); BG SAMPLE SITE RIGHT RADIAL; BG TOTAL HEMOGLOBIN 11.7 g/dL (12.0-18.0); BG TOTAL RESPIRATORY RATE 14 b/min; BG VENT MODE VENT - AC
[2021-05-10] MEDS ORDERED: CEFAZOLIN 1000MG PREMIX 50 ML IV SCH (11:30)
[2021-05-10] MEDS ORDERED: FENTANYL CITRATE/PF 50MCG/ML 2ML VIAL ONE (15:29)
[2021-05-10] MEDS ORDERED: MIDAZOLAM HCL 5 MG/5 ML VIAL ONE (15:29)
[2021-05-10] MEDS: ATORVASTATIN CALCIUM 20MG TABLET PO SCH (21:52)
[2021-05-11] VITALS (31 sets, daily range): BP systolic 92–123; BP diastolic 46–72
[2021-05-11] MEDS: IPRATROPIUM/ALBUTEROL 0.5-3(2.5)MG/3ML NEB HHN SCH ×6 (00:34→20:58)
[2021-05-11 05:58] LABS: CHLORIDE 109 mEq/L (98-107)
[2021-05-11 06:14] LABS: BASOPHILS % 0.4 % (0.0-2.0); EOSINOPHILS % 2.4 % (0.0-5.0); HEMATOCRIT. 30.4 % (42.0-52.0); HEMOGLOBIN. 9.8 g/dL (14.0-18.0); LYMPHOCYTES % 18.5 % (20.0-50.0); MEAN CORPUSCULAR HEMOGLOBIN 28.6 pg (28.0-32.0); MEAN CORPUSCULAR VOLUME 88.3 fL (80.0-94.0); MEAN PLATELET VOLUME 8.6 fl (7.4-10.4); MONOCYTES % 10.4 % (2.0-8.0); NEUTROPHILS % 68.3 % (40.0-76.0); PLATELET 166 x1000/uL (130-400); RED BLOOD CELL COUNT 3.44 mill/uL (4.7-6.1); RED CELL DISTRIBUTION WIDTH 17.8 % (11.6-14.6)
[2021-05-11] MEDS: BLOOD SUGAR DIAGNOSTIC STRIP TEST SCH ×4 (06:51→23:33)
[2021-05-11] MEDS: METOCLOPRAMIDE HCL 10MG/2ML VIAL IV SCH ×4 (06:51→23:39)
[2021-05-11] MEDS: INSULIN LISPRO 100 UNITS/ML SUBCUT SCH ×4 (06:52→23:38)
[2021-05-11] MEDS: DEXT 5%/0.45% NACL 1000ML 1,000 ML IV SCH ×2 (06:52→20:58)
[2021-05-11] MEDS: LEVETIRACETAM 500MG PREMIX 100 ML IV SCH ×2 (08:13→20:57)
[2021-05-11] MEDS: LEVOTHYROXINE SODIUM 50MCG TABLET PO SCH (08:13)
[2021-05-11] MEDS: FAMOTIDINE 20MG TABLET PO SCH (08:13)
[2021-05-11] MEDS: POLYETHYLENE GLYCOL 3350 (17GM) 1 DOSE PACK PO SCH (08:15)
[2021-05-11] MEDS: INSULIN GLARGINE UD 100 UNITS/ML SYR SUBCUT SCH ×2 (12:03→23:38)
[2021-05-11] MEDS: ATORVASTATIN CALCIUM 20MG TABLET PO SCH (20:57)
[2021-05-12] VITALS (13 sets, daily range): BP systolic 115–149; BP diastolic 61–96
[2021-05-12] MEDS: IPRATROPIUM/ALBUTEROL 0.5-3(2.5)MG/3ML NEB HHN SCH ×6 (00:44→20:01)
[2021-05-12] MEDS: BLOOD SUGAR DIAGNOSTIC STRIP TEST SCH ×3 (05:30→17:34)
[2021-05-12] MEDS: INSULIN LISPRO 100 UNITS/ML SUBCUT SCH ×3 (05:35→17:48)
[2021-05-12] MEDS: METOCLOPRAMIDE HCL 10MG/2ML VIAL IV SCH ×3 (05:35→17:35)
[2021-05-12 05:36] LABS: BASOPHILS % 0.2 % (0.0-2.0); EOSINOPHILS % 1.5 % (0.0-5.0); HEMATOCRIT. 31.6 % (42.0-52.0); HEMOGLOBIN. 10.4 g/dL (14.0-18.0); LYMPHOCYTES % 14.4 % (20.0-50.0); MEAN CORPUSCULAR HEMOGLOBIN 28.7 pg (28.0-32.0); MEAN CORPUSCULAR VOLUME 87.2 fL (80.0-94.0); MEAN PLATELET VOLUME 8.7 fl (7.4-10.4); MONOCYTES % 10.9 % (2.0-8.0); PLATELET 162 x1000/uL (130-400); RED BLOOD CELL COUNT 3.63 mill/uL (4.7-6.1); RED CELL DISTRIBUTION WIDTH 17.4 % (11.6-14.6)
[2021-05-12] MEDS: LEVOTHYROXINE SODIUM 50MCG TABLET PO SCH ×2 (05:39→09:31)
[2021-05-12 06:37] LABS: CHLORIDE 106 mEq/L (98-107)
[2021-05-12] MEDS: POLYETHYLENE GLYCOL 3350 (17GM) 1 DOSE PACK PO SCH (09:31)
[2021-05-12] MEDS: ASPIRIN 81MG TABLET PO SCH (09:31)
[2021-05-12] MEDS: FAMOTIDINE 20MG TABLET PO SCH (09:31)
[2021-05-12] MEDS: LEVETIRACETAM 500MG PREMIX 100 ML IV SCH ×2 (09:32→21:39)
[2021-05-12] MEDS: DEXT 5%/0.45% NACL 1000ML 1,000 ML IV SCH (09:32)
[2021-05-12] MEDS ORDERED: ENOXAPARIN 120MG/0.8ML SYR SUBCUT SCH (11:00)
[2021-05-12] MEDS: INSULIN GLARGINE UD 100 UNITS/ML SYR SUBCUT SCH ×2 (11:10→21:48)
[2021-05-12] MEDS: ENOXAPARIN 100MG/ML SYR SUBCUT SCH (21:39)
[2021-05-12] MEDS: ATORVASTATIN CALCIUM 20MG TABLET PO SCH (21:39)
[2021-05-13] VITALS (14 sets, daily range): BP systolic 106–140; BP diastolic 57–77
[2021-05-13] MEDS: METOCLOPRAMIDE HCL 10MG/2ML VIAL IV SCH ×5 (00:07→23:38)
[2021-05-13] MEDS: INSULIN LISPRO 100 UNITS/ML SUBCUT SCH ×5 (00:17→23:40)
[2021-05-13] MEDS: BLOOD SUGAR DIAGNOSTIC STRIP TEST SCH ×5 (00:18→23:40)
[2021-05-13] MEDS: IPRATROPIUM/ALBUTEROL 0.5-3(2.5)MG/3ML NEB HHN SCH ×6 (04:02→19:58)
[2021-05-13 05:34] LABS: CHLORIDE 104 mEq/L (98-107)
[2021-05-13 06:21] LABS: BASOPHILS % 0.3 % (0.0-2.0); EOSINOPHILS % 0.9 % (0.0-5.0); HEMATOCRIT. 31.5 % (42.0-52.0); HEMOGLOBIN. 10.3 g/dL (14.0-18.0); LYMPHOCYTES % 14.4 % (20.0-50.0); MEAN CORPUSCULAR HEMOGLOBIN 28.9 pg (28.0-32.0); MEAN CORPUSCULAR VOLUME 88.9 fL (80.0-94.0); MONOCYTES % 9.7 % (2.0-8.0); NEUTROPHILS % 74.7 % (40.0-76.0); PLATELET 173 x1000/uL (130-400); RED BLOOD CELL COUNT 3.55 mill/uL (4.7-6.1); RED CELL DISTRIBUTION WIDTH 17.4 % (11.6-14.6)
[2021-05-13] MEDS: POLYETHYLENE GLYCOL 3350 (17GM) 1 DOSE PACK PO SCH (09:00)
[2021-05-13] MEDS: LEVOTHYROXINE SODIUM 50MCG TABLET PO SCH (09:41)
[2021-05-13] MEDS: LEVETIRACETAM 500MG PREMIX 100 ML IV SCH ×2 (09:41→20:35)
[2021-05-13] MEDS: FAMOTIDINE 20MG TABLET PO SCH (09:41)
[2021-05-13] MEDS: ASPIRIN 81MG TABLET PO SCH (09:41)
[2021-05-13] MEDS: ENOXAPARIN 100MG/ML SYR SUBCUT SCH ×2 (09:42→20:35)
[2021-05-13] MEDS: INSULIN GLARGINE UD 100 UNITS/ML SYR SUBCUT SCH ×2 (12:07→21:12)
[2021-05-13] MEDS: ATORVASTATIN CALCIUM 20MG TABLET PO SCH (20:34)
[2021-05-14] VITALS (12 sets, daily range): BP systolic 100–124; BP diastolic 53–70
[2021-05-14] MEDS: IPRATROPIUM/ALBUTEROL 0.5-3(2.5)MG/3ML NEB HHN SCH ×5 (00:03→20:19)
[2021-05-14 05:25] LABS: CHLORIDE 104 mEq/L (98-107)
[2021-05-14] MEDS: METOCLOPRAMIDE HCL 10MG/2ML VIAL IV SCH ×4 (05:32→23:04)
[2021-05-14] MEDS: BLOOD SUGAR DIAGNOSTIC STRIP TEST SCH ×4 (05:33→23:05)
[2021-05-14] MEDS: INSULIN LISPRO 100 UNITS/ML SUBCUT SCH ×4 (05:33→23:09)
[2021-05-14] MEDS: FAMOTIDINE 20MG TABLET PO SCH (09:39)
[2021-05-14] MEDS: ASPIRIN 81MG TABLET PO SCH (09:39)
[2021-05-14] MEDS: POLYETHYLENE GLYCOL 3350 (17GM) 1 DOSE PACK PO SCH (09:40)
[2021-05-14] MEDS: ENOXAPARIN 100MG/ML SYR SUBCUT SCH (09:40)
[2021-05-14] MEDS: INSULIN GLARGINE UD 100 UNITS/ML SYR SUBCUT SCH ×2 (09:41→23:05)
[2021-05-14] MEDS: LEVETIRACETAM 500MG PREMIX 100 ML IV SCH (09:44)
[2021-05-14 12:21] LABS: BASOPHILS % 0.2 % (0.0-2.0); EOSINOPHILS % 1.5 % (0.0-5.0); HEMATOCRIT. 29.1 % (42.0-52.0); HEMOGLOBIN. 9.4 g/dL (14.0-18.0); LYMPHOCYTES % 14.8 % (20.0-50.0); MEAN CORPUSCULAR HEMOGLOBIN 28.4 pg (28.0-32.0); MEAN CORPUSCULAR VOLUME 88.2 fL (80.0-94.0); MEAN PLATELET VOLUME 8.9 fl (7.4-10.4); MONOCYTES % 9.7 % (2.0-8.0); NEUTROPHILS % 73.8 % (40.0-76.0); PLATELET 186 x1000/uL (130-400); RED CELL DISTRIBUTION WIDTH 17.4 % (11.6-14.6)
[2021-05-14 12:31] LABS: CHLORIDE 103 mEq/L (98-107)
[2021-05-14] MEDS: GUAIFENESIN 200MG/10ML SUGAR FREE UDC PO SCH ×2 (18:40→23:04)
[2021-05-14] MEDS: LEVETIRACETAM 500MG TABLET PO SCH (20:33)
[2021-05-14] MEDS: ENOXAPARIN 120MG/0.8ML SYR SUBCUT SCH (20:33)
[2021-05-14] MEDS: ATORVASTATIN CALCIUM 20MG TABLET PO SCH (20:33)
[2021-05-15] VITALS (13 sets, daily range): BP systolic 93–143; BP diastolic 53–72
[2021-05-15] MEDS: IPRATROPIUM/ALBUTEROL 0.5-3(2.5)MG/3ML NEB HHN SCH ×6 (00:36→20:57)
[2021-05-15] MEDS: GUAIFENESIN 200MG/10ML SUGAR FREE UDC PO SCH ×3 (05:06→16:45)
[2021-05-15] MEDS: BLOOD SUGAR DIAGNOSTIC STRIP TEST SCH ×3 (05:07→18:25)
[2021-05-15] MEDS: INSULIN LISPRO 100 UNITS/ML SUBCUT SCH ×3 (05:07→18:00)
[2021-05-15] MEDS: METOCLOPRAMIDE HCL 10MG/2ML VIAL IV SCH ×3 (05:07→18:28)
[2021-05-15 07:16] LABS: CHLORIDE 104 mEq/L (98-107)
[2021-05-15 07:17] LABS: BASOPHILS % 0.3 % (0.0-2.0); EOSINOPHILS % 1.9 % (0.0-5.0); HEMATOCRIT. 28.1 % (42.0-52.0); HEMOGLOBIN. 9.1 g/dL (14.0-18.0); LYMPHOCYTES % 23.6 % (20.0-50.0); MEAN CORPUSCULAR HEMOGLOBIN 28.5 pg (28.0-32.0); MEAN CORPUSCULAR VOLUME 87.7 fL (80.0-94.0); MEAN PLATELET VOLUME 9.2 fl (7.4-10.4); NEUTROPHILS % 65.2 % (40.0-76.0); PLATELET 209 x1000/uL (130-400); RED BLOOD CELL COUNT 3.21 mill/uL (4.7-6.1); RED CELL DISTRIBUTION WIDTH 17.8 % (11.6-14.6)
[2021-05-15] MEDS: ASPIRIN 81MG TABLET PO SCH (08:52)
[2021-05-15] MEDS: POLYETHYLENE GLYCOL 3350 (17GM) 1 DOSE PACK PO SCH (08:52)
[2021-05-15] MEDS: LEVOTHYROXINE SODIUM 50MCG TABLET PO SCH (08:52)
[2021-05-15] MEDS: FAMOTIDINE 20MG TABLET PO SCH (08:52)
[2021-05-15] MEDS: LEVETIRACETAM 500MG TABLET PO SCH ×2 (10:24→21:15)
[2021-05-15] MEDS: INSULIN GLARGINE UD 100 UNITS/ML SYR SUBCUT SCH (10:33)
[2021-05-15] MEDS: ENOXAPARIN 120MG/0.8ML SYR SUBCUT SCH (12:00)
[2021-05-15 13:40] LABS: BG BASE EXCESS 8.2 mmol/L (-2.0-2.0); BG CARBOXYHEMOGLOBIN 0.6 % (0.5-1.5); BG DEOXYHEMOGLOBIN 2.4 % (0.0-5.0); BG FRACTION INSPIRED OXYGEN 30; BG HCO3 ACT 32.3 mmol/L (22.0-26.0); BG METHEMOGLOBIN 0.3 % (0.0-1.5); BG OXYGEN SATURATION 97.6 % (92.0-98.5); BG OXYHEMOGLOBIN 96.7 % (94.0-97.0); BG PCO2 42.8 mmHg (35.0-45.0); BG PH 7.495 (7.350-7.450); BG PO2 99.9 mmHg (75.0-100.0); BG SAMPLE SITE RIGHT RADIAL; BG TOTAL HEMOGLOBIN 10.2 g/dL (12.0-18.0); BG VENT MODE VENT - AC
[2021-05-15] MEDS ORDERED: RACEPINEPHRINE 2.25% 0.5ML NEB VIAL HHN PRN (15:15)
[2021-05-15] MEDS ORDERED: DIATR MEGLU/DIATRIZOATE SOLN 30ML ONE (17:19)
[2021-05-15] MEDS ORDERED: ENOXAPARIN 100MG/ML SYR SUBCUT SCH (21:00)
[2021-05-15] MEDS: ATORVASTATIN CALCIUM 20MG TABLET PO SCH (21:15)
[2021-05-16] VITALS (12 sets, daily range): BP systolic 95–121; BP diastolic 51–77
[2021-05-16] MEDS: METOCLOPRAMIDE HCL 10MG/2ML VIAL IV SCH ×4 (00:06→17:13)
[2021-05-16] MEDS: GUAIFENESIN 200MG/10ML SUGAR FREE UDC PO SCH ×4 (00:06→17:13)
[2021-05-16] MEDS: INSULIN GLARGINE UD 100 UNITS/ML SYR SUBCUT SCH ×2 (00:07→11:09)
[2021-05-16] MEDS: BLOOD SUGAR DIAGNOSTIC STRIP TEST SCH ×4 (00:17→17:13)
[2021-05-16] MEDS: IPRATROPIUM/ALBUTEROL 0.5-3(2.5)MG/3ML NEB HHN SCH ×6 (00:25→21:00)
[2021-05-16] MEDS: INSULIN LISPRO 100 UNITS/ML SUBCUT SCH ×4 (06:15→17:13)
[2021-05-16] MEDS: LEVOTHYROXINE SODIUM 50MCG TABLET PO SCH (06:17)
[2021-05-16 07:13] LABS: PARTIAL THROMBOPLASTIN TIME < 21.0 sec (23.4-31.0); PROTHROMBIN TIME 10.5 sec (9.6-11.0)
[2021-05-16 07:15] LABS: BASOPHILS % 0.3 % (0.0-2.0); EOSINOPHILS % 1.4 % (0.0-5.0); HEMATOCRIT. 28.4 % (42.0-52.0); HEMOGLOBIN. 9.2 g/dL (14.0-18.0); LYMPHOCYTES % 11.3 % (20.0-50.0); MEAN CORPUSCULAR HEMOGLOBIN 28.5 pg (28.0-32.0); MEAN CORPUSCULAR VOLUME 88.3 fL (80.0-94.0); MONOCYTES % 8.2 % (2.0-8.0); NEUTROPHILS % 78.8 % (40.0-76.0); RED BLOOD CELL COUNT 3.21 mill/uL (4.7-6.1); RED CELL DISTRIBUTION WIDTH 17.4 % (11.6-14.6)
[2021-05-16 08:28] LABS: CHLORIDE 102 mEq/L (98-107)
[2021-05-16] MEDS: POLYETHYLENE GLYCOL 3350 (17GM) 1 DOSE PACK PO SCH (09:00)
[2021-05-16 10:03] LABS: PLATELET 114 x1000/uL (130-400)
[2021-05-16] MEDS: ASPIRIN 81MG TABLET PO SCH (10:45)
[2021-05-16] MEDS: FAMOTIDINE 20MG TABLET PO SCH (10:45)
[2021-05-16] MEDS: LEVETIRACETAM 500MG TABLET PO SCH ×2 (10:45→21:26)
[2021-05-16] MEDS: CEFEPIME 2,000 MG in DEXT 5% WATER 100 ML IV SCH (17:59)
[2021-05-16] MEDS: ATORVASTATIN CALCIUM 20MG TABLET PO SCH (21:26)
[2021-05-17] VITALS (15 sets, daily range): BP systolic 101–122; BP diastolic 54–72
[2021-05-17] MEDS: GUAIFENESIN 200MG/10ML SUGAR FREE UDC PO SCH ×5 (00:18→21:57)
[2021-05-17] MEDS: METOCLOPRAMIDE HCL 10MG/2ML VIAL IV SCH ×5 (00:19→23:31)
[2021-05-17] MEDS: INSULIN GLARGINE UD 100 UNITS/ML SYR SUBCUT SCH ×3 (00:20→21:34)
[2021-05-17] MEDS: INSULIN LISPRO 100 UNITS/ML SUBCUT SCH ×5 (00:21→23:29)
[2021-05-17] MEDS: BLOOD SUGAR DIAGNOSTIC STRIP TEST SCH ×5 (00:21→23:30)
[2021-05-17] MEDS: IPRATROPIUM/ALBUTEROL 0.5-3(2.5)MG/3ML NEB HHN SCH ×5 (00:40→15:39)
[2021-05-17] MEDS: CEFEPIME 2,000 MG in DEXT 5% WATER 100 ML IV SCH ×3 (02:09→17:44)
[2021-05-17 08:37] LABS: CHLORIDE 104 mEq/L (98-107)
[2021-05-17 09:05] LABS: BASOPHILS % 0.5 % (0.0-2.0); EOSINOPHILS % 3.4 % (0.0-5.0); HEMATOCRIT. 26.2 % (42.0-52.0); HEMOGLOBIN. 8.4 g/dL (14.0-18.0); LYMPHOCYTES % 16.1 % (20.0-50.0); MEAN CORPUSCULAR HEMOGLOBIN 28.5 pg (28.0-32.0); MEAN CORPUSCULAR VOLUME 89.3 fL (80.0-94.0); MONOCYTES % 10.8 % (2.0-8.0); NEUTROPHILS % 69.2 % (40.0-76.0); PLATELET 115 x1000/uL (130-400); RED BLOOD CELL COUNT 2.94 mill/uL (4.7-6.1); RED CELL DISTRIBUTION WIDTH 17.6 % (11.6-14.6)
[2021-05-17] MEDS: FAMOTIDINE 20MG TABLET PO SCH (10:28)
[2021-05-17] MEDS: POLYETHYLENE GLYCOL 3350 (17GM) 1 DOSE PACK PO SCH (10:28)
[2021-05-17] MEDS: LEVOTHYROXINE SODIUM 50MCG TABLET PO SCH (10:28)
[2021-05-17] MEDS: LEVETIRACETAM 500MG TABLET PO SCH ×2 (10:28→21:32)
[2021-05-17] MEDS: ATORVASTATIN CALCIUM 20MG TABLET PO SCH (21:32)
[2021-05-17] MEDS: VANCOMYCIN 1500MG in DEXTROSE 5% WATER 250ML IV SCH (21:32)
[2021-05-18] VITALS (12 sets, daily range): BP systolic 92–160; BP diastolic 54–95
[2021-05-18] MEDS: IPRATROPIUM/ALBUTEROL 0.5-3(2.5)MG/3ML NEB HHN SCH ×6 (01:03→20:16)
[2021-05-18] MEDS: CEFEPIME 2,000 MG in DEXT 5% WATER 100 ML IV SCH (01:54)
[2021-05-18] MEDS: BLOOD SUGAR DIAGNOSTIC STRIP TEST SCH ×4 (05:31→23:46)
[2021-05-18] MEDS: METOCLOPRAMIDE HCL 10MG/2ML VIAL IV SCH ×4 (05:31→23:56)
[2021-05-18] MEDS: GUAIFENESIN 200MG/10ML SUGAR FREE UDC PO SCH ×4 (05:31→22:42)
[2021-05-18] MEDS: INSULIN LISPRO 100 UNITS/ML SUBCUT SCH ×4 (05:33→23:55)
[2021-05-18 05:45] LABS: BASOPHILS % 0.6 % (0.0-2.0); EOSINOPHILS % 3.8 % (0.0-5.0); HEMATOCRIT. 23.8 % (42.0-52.0); HEMOGLOBIN. 7.9 g/dL (14.0-18.0); LYMPHOCYTES % 17.8 % (20.0-50.0); MEAN CORPUSCULAR HEMOGLOBIN 28.9 pg (28.0-32.0); MEAN CORPUSCULAR VOLUME 86.9 fL (80.0-94.0); MEAN PLATELET VOLUME 8.6 fl (7.4-10.4); MONOCYTES % 10.5 % (2.0-8.0); NEUTROPHILS % 67.3 % (40.0-76.0); RED BLOOD CELL COUNT 2.74 mill/uL (4.7-6.1); RED CELL DISTRIBUTION WIDTH 16.9 % (11.6-14.6)
[2021-05-18 06:21] LABS: CHLORIDE 103 mEq/L (98-107)
[2021-05-18 06:45] LABS: PLATELET 236 x1000/uL (130-400)
[2021-05-18] MEDS: LEVOTHYROXINE SODIUM 50MCG TABLET PO SCH (08:16)
[2021-05-18] MEDS: FAMOTIDINE 20MG TABLET PO SCH (08:16)
[2021-05-18] MEDS: POLYETHYLENE GLYCOL 3350 (17GM) 1 DOSE PACK PO SCH (08:17)
[2021-05-18] MEDS: LEVETIRACETAM 500MG TABLET PO SCH ×2 (08:17→21:17)
[2021-05-18] MEDS: INSULIN GLARGINE UD 100 UNITS/ML SYR SUBCUT SCH ×2 (10:31→21:37)
[2021-05-18] MEDS: ATORVASTATIN CALCIUM 20MG TABLET PO SCH (21:17)
[2021-05-18] MEDS: VANCOMYCIN 1500MG in DEXTROSE 5% WATER 250ML IV SCH (21:18)
[2021-05-19] VITALS (12 sets, daily range): BP systolic 103–123; BP diastolic 58–77
[2021-05-19] MEDS: IPRATROPIUM/ALBUTEROL 0.5-3(2.5)MG/3ML NEB HHN SCH ×7 (00:12→23:57)
[2021-05-19] MEDS: METOCLOPRAMIDE HCL 10MG/2ML VIAL IV SCH ×3 (05:22→17:57)
[2021-05-19] MEDS: GUAIFENESIN 200MG/10ML SUGAR FREE UDC PO SCH ×4 (05:22→20:32)
[2021-05-19] MEDS: INSULIN LISPRO 100 UNITS/ML SUBCUT SCH ×3 (05:24→17:56)
[2021-05-19] MEDS: BLOOD SUGAR DIAGNOSTIC STRIP TEST SCH ×3 (05:30→17:56)
[2021-05-19 06:27] LABS: CHLORIDE 104 mEq/L (98-107)
[2021-05-19 06:28] LABS: BASOPHILS % 0.4 % (0.0-2.0); EOSINOPHILS % 4.4 % (0.0-5.0); HEMATOCRIT. 23.9 % (42.0-52.0); LYMPHOCYTES % 27.3 % (20.0-50.0); MEAN CORPUSCULAR HEMOGLOBIN 29.1 pg (28.0-32.0); MEAN CORPUSCULAR VOLUME 87.3 fL (80.0-94.0); MEAN PLATELET VOLUME 8.6 fl (7.4-10.4); MONOCYTES % 11.7 % (2.0-8.0); NEUTROPHILS % 56.2 % (40.0-76.0); PLATELET 265 x1000/uL (130-400); RED BLOOD CELL COUNT 2.74 mill/uL (4.7-6.1)
[2021-05-19] MEDS: FAMOTIDINE 20MG TABLET PO SCH (09:02)
[2021-05-19] MEDS: POLYETHYLENE GLYCOL 3350 (17GM) 1 DOSE PACK PO SCH (09:02)
[2021-05-19] MEDS: LEVOTHYROXINE SODIUM 50MCG TABLET PO SCH (09:02)
[2021-05-19] MEDS: LEVETIRACETAM 500MG TABLET PO SCH ×2 (09:02→20:32)
[2021-05-19] MEDS: INSULIN GLARGINE UD 100 UNITS/ML SYR SUBCUT SCH ×2 (11:24→22:00)
[2021-05-19] MEDS: ATORVASTATIN CALCIUM 20MG TABLET PO SCH (20:32)
[2021-05-19] MEDS: VANCOMYCIN 1500MG in DEXTROSE 5% WATER 250ML IV SCH (20:32)
[2021-05-20] VITALS (12 sets, daily range): BP systolic 91–132; BP diastolic 50–77
[2021-05-20] MEDS: METOCLOPRAMIDE HCL 10MG/2ML VIAL IV SCH ×4 (00:21→17:30)
[2021-05-20] MEDS: BLOOD SUGAR DIAGNOSTIC STRIP TEST SCH ×4 (00:21→17:48)
[2021-05-20] MEDS: INSULIN LISPRO 100 UNITS/ML SUBCUT SCH ×4 (00:22→17:33)
[2021-05-20] MEDS: IPRATROPIUM/ALBUTEROL 0.5-3(2.5)MG/3ML NEB HHN SCH ×5 (04:32→20:17)
[2021-05-20] MEDS: GUAIFENESIN 200MG/10ML SUGAR FREE UDC PO SCH ×4 (05:11→21:53)
[2021-05-20 06:04] LABS: BASOPHILS % 0.6 % (0.0-2.0); EOSINOPHILS % 4.8 % (0.0-5.0); HEMATOCRIT. 25.1 % (42.0-52.0); HEMOGLOBIN. 8.2 g/dL (14.0-18.0); LYMPHOCYTES % 23.9 % (20.0-50.0); MEAN CORPUSCULAR VOLUME 88.1 fL (80.0-94.0); MEAN PLATELET VOLUME 8.5 fl (7.4-10.4); MONOCYTES % 12.1 % (2.0-8.0); NEUTROPHILS % 58.6 % (40.0-76.0); PLATELET 315 x1000/uL (130-400); RED BLOOD CELL COUNT 2.84 mill/uL (4.7-6.1); RED CELL DISTRIBUTION WIDTH 17.1 % (11.6-14.6)
[2021-05-20 06:16] LABS: CHLORIDE 105 mEq/L (98-107)
[2021-05-20] MEDS: FAMOTIDINE 20MG TABLET PO SCH (08:12)
[2021-05-20] MEDS: LEVETIRACETAM 500MG TABLET PO SCH ×2 (08:12→21:53)
[2021-05-20] MEDS: LEVOTHYROXINE SODIUM 50MCG TABLET PO SCH (08:12)
[2021-05-20] MEDS: POLYETHYLENE GLYCOL 3350 (17GM) 1 DOSE PACK PO SCH (09:00)
[2021-05-20] MEDS: ENOXAPARIN 100MG/ML SYR SUBCUT SCH (21:52)
[2021-05-20] MEDS: VANCOMYCIN 1500MG in DEXTROSE 5% WATER 250ML IV SCH (21:52)
[2021-05-21] VITALS (12 sets, daily range): BP systolic 106–120; BP diastolic 54–67
[2021-05-21] MEDS: BLOOD SUGAR DIAGNOSTIC STRIP TEST SCH ×5 (00:16→23:21)
[2021-05-21] MEDS: METOCLOPRAMIDE HCL 10MG/2ML VIAL IV SCH ×5 (00:16→23:21)
[2021-05-21] MEDS: INSULIN LISPRO 100 UNITS/ML SUBCUT SCH ×5 (00:20→23:24)
[2021-05-21] MEDS: IPRATROPIUM/ALBUTEROL 0.5-3(2.5)MG/3ML NEB HHN SCH ×6 (00:40→20:49)
[2021-05-21] MEDS: GUAIFENESIN 200MG/10ML SUGAR FREE UDC PO SCH ×4 (05:49→23:21)
[2021-05-21 06:21] LABS: BASOPHILS % 0.6 % (0.0-2.0); EOSINOPHILS % 4.9 % (0.0-5.0); HEMATOCRIT. 25.5 % (42.0-52.0); HEMOGLOBIN. 8.2 g/dL (14.0-18.0); LYMPHOCYTES % 18.9 % (20.0-50.0); MEAN CORPUSCULAR HEMOGLOBIN 28.6 pg (28.0-32.0); MEAN CORPUSCULAR VOLUME 89.3 fL (80.0-94.0); MEAN PLATELET VOLUME 8.5 fl (7.4-10.4); MONOCYTES % 10.9 % (2.0-8.0); NEUTROPHILS % 64.7 % (40.0-76.0); PLATELET 325 x1000/uL (130-400); RED BLOOD CELL COUNT 2.86 mill/uL (4.7-6.1)
[2021-05-21 06:27] LABS: CHLORIDE 104 mEq/L (98-107)
[2021-05-21] MEDS: FAMOTIDINE 20MG TABLET PO SCH (09:20)
[2021-05-21] MEDS: POLYETHYLENE GLYCOL 3350 (17GM) 1 DOSE PACK PO SCH (09:20)
[2021-05-21] MEDS: ENOXAPARIN 100MG/ML SYR SUBCUT SCH (09:20)
[2021-05-21] MEDS: ASPIRIN 81MG EC TABLET PO SCH (09:20)
[2021-05-21] MEDS: LEVETIRACETAM 500MG TABLET PO SCH ×2 (09:22→21:10)
[2021-05-21 10:28] LABS: TOTAL IRON BINDING CAPACITY 246 ug/dL (250-450)
[2021-05-21] MEDS: FERROUS SULFATE 325MG TABLET PO SCH ×2 (14:31→16:56)
[2021-05-21] MEDS: VANCOMYCIN 1500MG in DEXTROSE 5% WATER 250ML IV SCH (21:10)
[2021-05-21] MEDS: ENOXAPARIN 120MG/0.8ML SYR SUBCUT SCH (21:10)
[2021-05-22] VITALS (11 sets, daily range): BP systolic 105–133; BP diastolic 56–73
[2021-05-22] MEDS: IPRATROPIUM/ALBUTEROL 0.5-3(2.5)MG/3ML NEB HHN SCH ×5 (01:00→16:50)
[2021-05-22] MEDS: METOCLOPRAMIDE HCL 10MG/2ML VIAL IV SCH ×3 (05:44→17:45)
[2021-05-22] MEDS: GUAIFENESIN 200MG/10ML SUGAR FREE UDC PO SCH ×3 (05:44→17:51)
[2021-05-22] MEDS: INSULIN LISPRO 100 UNITS/ML SUBCUT SCH ×3 (05:45→17:57)
[2021-05-22] MEDS: BLOOD SUGAR DIAGNOSTIC STRIP TEST SCH ×3 (05:46→17:55)
[2021-05-22 06:47] LABS: BASOPHILS % 1.1 % (0.0-2.0); HEMATOCRIT. 24.4 % (42.0-52.0); HEMOGLOBIN. 8.1 g/dL (14.0-18.0); LYMPHOCYTES % 27.2 % (20.0-50.0); MEAN CORPUSCULAR HEMOGLOBIN 28.9 pg (28.0-32.0); MEAN CORPUSCULAR VOLUME 87.1 fL (80.0-94.0); MEAN PLATELET VOLUME 8.5 fl (7.4-10.4); MONOCYTES % 11.5 % (2.0-8.0); NEUTROPHILS % 54.2 % (40.0-76.0); PLATELET 329 x1000/uL (130-400)
[2021-05-22 06:55] LABS: CHLORIDE 106 mEq/L (98-107)
[2021-05-22] MEDS: POLYETHYLENE GLYCOL 3350 (17GM) 1 DOSE PACK PO SCH (09:00)
[2021-05-22] MEDS: FERROUS SULFATE 325MG TABLET PO SCH ×2 (09:56→17:51)
[2021-05-22] MEDS: ASPIRIN 81MG EC TABLET PO SCH (09:56)
[2021-05-22] MEDS: LEVETIRACETAM 500MG TABLET PO SCH (09:56)
[2021-05-22] MEDS: FAMOTIDINE 20MG TABLET PO SCH (09:56)
[2021-05-22] MEDS: ENOXAPARIN 120MG/0.8ML SYR SUBCUT SCH (09:56)
[2021-05-22] MEDS: MORPHINE SULFATE 250 MG in DEXT 5% WATER 225 ML IV PRN (20:38)
[2021-05-23] VITALS (11 sets, daily range): BP systolic 72–94; BP diastolic 39–55
[2021-05-23 06:39] LABS: CHLORIDE 107 mEq/L (98-107)
[2021-05-23 06:51] LABS: BASOPHILS % 0.4 % (0.0-2.0); EOSINOPHILS % 4.3 % (0.0-5.0); HEMATOCRIT. 25.9 % (42.0-52.0); HEMOGLOBIN. 8.3 g/dL (14.0-18.0); MEAN CORPUSCULAR HEMOGLOBIN 28.8 pg (28.0-32.0); MEAN CORPUSCULAR VOLUME 89.9 fL (80.0-94.0); MEAN PLATELET VOLUME 8.1 fl (7.4-10.4); MONOCYTES % 11.4 % (2.0-8.0); NEUTROPHILS % 58.9 % (40.0-76.0); PLATELET 335 x1000/uL (130-400); RED BLOOD CELL COUNT 2.88 mill/uL (4.7-6.1); RED CELL DISTRIBUTION WIDTH 17.1 % (11.6-14.6)
[2021-05-24] VITALS: BP 82/53
[2021-05-24 04:00] VITALS: BP 82/52
[2021-05-24 07:07] LABS: HEMATOCRIT. 25.7 % (42.0-52.0); HEMOGLOBIN. 8.4 g/dL (14.0-18.0); MEAN CORPUSCULAR HEMOGLOBIN 29.1 pg (28.0-32.0); MEAN CORPUSCULAR VOLUME 89.5 fL (80.0-94.0); MEAN PLATELET VOLUME 8.4 fl (7.4-10.4); PLATELET 338 x1000/uL (130-400); RED BLOOD CELL COUNT 2.87 mill/uL (4.7-6.1)
[2021-05-24 08:00] VITALS: BP 93/56
[2021-05-24 11:18] LABS: PLATELET ESTIMATE NORMAL
[2021-05-24 12:00] VITALS: BP 91/57
[2021-05-24 16:00] VITALS: BP 89/55
[2021-05-24] MEDS: MORPHINE SULFATE 250 MG in DEXT 5% WATER 225 ML IV PRN (16:53)
[2021-05-24 20:00] VITALS: BP 91/54
[2021-05-25] VITALS: BP 96/55
[2021-05-25 04:00] VITALS: BP 99/56
[2021-05-25 07:06] LABS: BASOPHILS % 0.4 % (0.0-2.0); EOSINOPHILS % 4.7 % (0.0-5.0); HEMATOCRIT. 26.2 % (42.0-52.0); HEMOGLOBIN. 8.4 g/dL (14.0-18.0); LYMPHOCYTES % 15.1 % (20.0-50.0); MEAN CORPUSCULAR HEMOGLOBIN 29.2 pg (28.0-32.0); MEAN CORPUSCULAR VOLUME 90.5 fL (80.0-94.0); MEAN PLATELET VOLUME 8.3 fl (7.4-10.4); MONOCYTES % 12.7 % (2.0-8.0); NEUTROPHILS % 67.1 % (40.0-76.0); PLATELET 350 x1000/uL (130-400); RED BLOOD CELL COUNT 2.89 mill/uL (4.7-6.1); RED CELL DISTRIBUTION WIDTH 17.1 % (11.6-14.6)
[2021-05-25 08:00] VITALS: BP 98/57
[2021-05-25 12:00] VITALS: BP 95/54
[2021-05-25 16:00] VITALS: BP 93/54
[2021-05-25 20:00] VITALS: BP 94/54
[2021-05-26] VITALS (9 sets, daily range): BP systolic 63–103; BP diastolic 32–55
[2021-05-26] MEDS: MORPHINE SULFATE 250 MG in DEXT 5% WATER 225 ML IV PRN (01:46)
[2021-05-26 06:38] LABS: BASOPHILS % 0.4 % (0.0-2.0); EOSINOPHILS % 2.1 % (0.0-5.0); HEMATOCRIT. 27.3 % (42.0-52.0); HEMOGLOBIN. 8.7 g/dL (14.0-18.0); LYMPHOCYTES % 9.2 % (20.0-50.0); MEAN CORPUSCULAR HEMOGLOBIN 28.9 pg (28.0-32.0); MEAN CORPUSCULAR VOLUME 90.9 fL (80.0-94.0); MEAN PLATELET VOLUME 8.3 fl (7.4-10.4); MONOCYTES % 11.7 % (2.0-8.0); NEUTROPHILS % 76.6 % (40.0-76.0); PLATELET 388 x1000/uL (130-400); RED BLOOD CELL COUNT 3.01 mill/uL (4.7-6.1); RED CELL DISTRIBUTION WIDTH 16.8 % (11.6-14.6)
[2021-05-27] VITALS: BP 47/23
[2021-05-27 04:00] VITALS: BP 49/28
[2021-05-27 06:45] LABS: HEMATOCRIT. 31.7 % (42.0-52.0); HEMOGLOBIN. 8.9 g/dL (14.0-18.0); MEAN CORPUSCULAR HEMOGLOBIN 28.1 pg (28.0-32.0); MEAN CORPUSCULAR VOLUME 100.6 fL (80.0-94.0); PLATELET 429 x1000/uL (130-400); RED BLOOD CELL COUNT 3.15 mill/uL (4.7-6.1); RED CELL DISTRIBUTION WIDTH 17.5 % (11.6-14.6)
[2021-05-27 18:57] LABS: NUCLEATED RED BLOOD CELLS 5 /100 WBC; PLATELET ESTIMATE INCREASED
== END 2021-05-27 10:11 | DRG 3 ==
LOC: ER 20:44 → 5EST 04-21 01:34 → EDBEDREQSVC 04-21 01:43 → EDBEDREQTM 04-21 01:43 → EDBEDREQ 04-21 01:43 → ENRESERV 04-21 07:26 → CANRESERV 04-21 07:26 → EDBEDREQSVC 04-21 08:30 → ENRESERV 04-21 08:41 → CVICU 04-28 09:25 → 5EST 04-30 05:34 → CVICU 05-01 07:04 → 5EST 05-09 18:31
PROVIDERS: ADMIT Internal Medicine; ATTEND Internal Medicine
PROC: 02HV33Z Insertion of Infusion Device into Superior Vena Cava, Percutaneous Approach (ICD-10-PCS; 2021-04-22)
PROC: B548ZZA Ultrasonography of Superior Vena Cava, Guidance (ICD-10-PCS; 2021-04-22)
PROC: 03CL0ZZ Extirpation of Matter from Left Internal Carotid Artery, Open Approach (ICD-10-PCS; principal; 2021-04-28)
PROC: 5A1955Z Respiratory Ventilation, Greater than 96 Consecutive Hours (ICD-10-PCS; 2021-05-01)
PROC: 5A12012 Performance of Cardiac Output, Single, Manual (ICD-10-PCS; 2021-05-01)
PROC: 0BH17EZ Insertion of Endotracheal Airway into Trachea, Via Natural or Artificial Opening (ICD-10-PCS; 2021-05-01)
PROC: 4A10X4Z Monitoring of Central Nervous Electrical Activity, External Approach (ICD-10-PCS; 2021-05-02)
PROC: 0B110F4 Bypass Trachea to Cutaneous with Tracheostomy Device, Open Approach (ICD-10-PCS; 2021-05-09)
PROC: 0DH63UZ Insertion of Feeding Device into Stomach, Percutaneous Approach (ICD-10-PCS; 2021-05-10)
PROC: 0DB68ZX Excision of Stomach, Via Natural or Artificial Opening Endoscopic, Diagnostic (ICD-10-PCS; 2021-05-10)
DX: A41.59 Other Gram-negative sepsis (principal); L89.153 Pressure ulcer of sacral region, stage 3; L89.313 Pressure ulcer of right buttock, stage 3; G92.8 Other toxic encephalopathy; G82.50 Quadriplegia, unspecified; J96.00 Acute respiratory failure, unspecified whether with hypoxia or hypercapnia; I62.02 Nontraumatic subacute subdural hemorrhage; I69.351 Hemiplegia and hemiparesis following cerebral infarction affecting right dominant side; E87.0 Hyperosmolality and hypernatremia; I48.21 Permanent atrial fibrillation; G93.1 Anoxic brain damage, not elsewhere classified; B37.49 Other urogenital candidiasis; Z99.11 Dependence on respirator [ventilator] status; D68.59 Other primary thrombophilia; I46.9 Cardiac arrest, cause unspecified; E66.9 Obesity, unspecified; D64.9 Anemia, unspecified; E03.9 Hypothyroidism, unspecified; E11.65 Type 2 diabetes mellitus with hyperglycemia; I51.7 Cardiomegaly; N18.9 Chronic kidney disease, unspecified; M48.061 Spinal stenosis, lumbar region without neurogenic claudication; I25.10 Atherosclerotic heart disease of native coronary artery without angina pectoris; E78.5 Hyperlipidemia, unspecified; J44.9 Chronic obstructive pulmonary disease, unspecified; R13.12 Dysphagia, oropharyngeal phase; S91.011A Laceration without foreign body, right ankle, initial encounter; X58.XXXA Exposure to other specified factors, initial encounter; B96.1 Klebsiella pneumoniae [K. pneumoniae] as the cause of diseases classified elsewhere; B95.62 Methicillin resistant Staphylococcus aureus infection as the cause of diseases classified elsewhere; D69.6 Thrombocytopenia, unspecified; E11.51 Type 2 diabetes mellitus with diabetic peripheral angiopathy without gangrene; E61.1 Iron deficiency; G40.909 Epilepsy, unspecified, not intractable, without status epilepticus; I70.209 Unspecified atherosclerosis of native arteries of extremities, unspecified extremity; Z66 Do not resuscitate; I12.9 Hypertensive chronic kidney disease with stage 1 through stage 4 chronic kidney disease, or unspecified chronic kidney disease; Z20.822 Contact with and (suspected) exposure to COVID-19; E11.22 Type 2 diabetes mellitus with diabetic chronic kidney disease; Z86.718 Personal history of other venous thrombosis and embolism; Z79.2 Long term (current) use of antibiotics; Z79.899 Other long term (current) drug therapy; Z79.1 Long term (current) use of non-steroidal anti-inflammatories (NSAID); Z82.49 Family history of ischemic heart disease and other diseases of the circulatory system; Z86.711 Personal history of pulmonary embolism; Z95.0 Presence of cardiac pacemaker; Y93.89 Activity, other specified; Y92.89 Other specified places as the place of occurrence of the external cause; Y99.8 Other external cause status; Z51.5 Encounter for palliative care; Z78.1 Physical restraint status; Z79.01 Long term (current) use of anticoagulants; Z79.4 Long term (current) use of insulin; Z79.84 Long term (current) use of oral hypoglycemic drugs; Z79.890 Hormone replacement therapy; I65.22 Occlusion and stenosis of left carotid artery
CPT/HCPCS: 36415; 36600; 70496; 70498; 70551; 71045; 74018; 76937; 78580; 80048; 80053; 80061; 80076; 80202; 80305; 80320; 81003; 82010; 82040; 82140; 82270; 82375; 82607; 82746; 82805; 82962; 83036; 83540; 83550; 83721; 83735; 84134; 84145; 84295; 84439; 84481; 84484; 85018; 85025; 85044; 86705; 86709; 86803; 87070; 87077; 87106; 87186; 87340; 87426; 88304; 88305; 88311; 92610; 92950; 93005; 93306; 93880; 93970; 94002; 94003; 94640; 97110; 97162; 97164; 97166; 97530; 99291; A6261; C1725; J0456; J0690; J0692; J0696; J1100; J1644; J1650; J1815; J1953; J2060; J2250; J2270; J2370; J2405; J2704; J2710; J2720; J2765; J3010; J3370; J3475; J3480; J3490; J7030; J7040; J7042; J7050; J7060; J7070; J7608; Q9963; A4315; G0480